=== PATIENT | male | born 1950 | race Caucasian/White ===

== ENCOUNTER 2016-08-14 12:26 | Emergency (ER) | payer OTHER ==
[2016-08-14 12:58] VITALS: BP 123/63
--- NOTE | 2016-08-14 14:26 | UC ---
Throat Pain/Nasal Charlie HPI - HPI Summary HPI Summary: 66 male presents today complaining of runny nose, dry cough, and congestion that began Tuesday08/09/16. Patient states his symptoms have been coming and going over the past week. He was feeling good around /Tuesday and was able to go to the gym to work out however his symptoms have returned. Patient reports he has been using Nyquil at bedtime and during the day as well as ibuprofen when he has headaches. Both have seemed to give him some relief. He believes his cough gets worse around the evening time. No production. Feels his upper chest is congested. His headaches are intermittent and do not last long. He has not had any recent travel or prolonged bed rest. No PMHx. Admits to ears feeling full. He has experienced fever/chills on and off. He did not take his temperature but states he had cold sweats. Has not had any since. Denies sinus pressure, difficulty breathing, chest pain, nausea, vomiting, abdominal pain, edema and hemoptysis. - History of Current Complaint Chief Complaint: UCRespiratory Stated Complaint: COUGH CONGESTION Time Seen by Provider: 08/14/16 14:07 Hx Obtained From: Patient Onset/Duration: Sudden Onset, Lasting Days Severity: Mild Pain Intensity: 0 Pain Scale Used: 0-10 Numeric Cough: Nonproductive Associated Signs & Symptoms: Positive: Nasal Discharge, Fever - Allergies/Home Medications Allergies/Adverse Reactions: Allergies Allergy/AdvReac Type Severity Reaction Status Date / Time No Known Allergies Allergy Verified 08/14/16 12:51 Home Medications: Home Medications Cholecalciferol [Vitamin D] 08/14/16 [History] Coenzyme Q10 (Ubidecarenone) [Co-Enzyme Q10] 08/14/16 [History] Ferrous Sulfate [Iron (Ferrous Sulfate)] 08/14/16 [History Confirmed 08/14/16] [place]-3 Fatty Acids [Fish Oil] 08/14/16 [History] [id number] [Nyquil Severe Cold/Flu 5-6.25-10-325 mg/15Ml] 08/14/16 [History] PMH/Surg Hx/FS Hx/Imm Hx Endocrine History Of: Denies: Diabetes, Thyroid Disease, Hyperthyroidism, Hypothyroidism, Dyslipidemia Cardiovascular History Of: Denies: Cardiac Disorders, Hypertension, Pacemaker/ICD, Myocardial Infarction , Congestive Heart Failure, Atrial Fibrillation, Deep Vein Thrombosis, Bleeding Disorders Respiratory History Of: Denies: COPD, Asthma, Bronchitis, Pneumonia, Pulmonary Embolism GI/ History Of: Denies: Gastroesophageal Reflux, Ulcer, Gastrointestinal Bleed, Gall Bladder Disease, Kidney Stones, Diverticulitis, Renal Disease, Urosepsis Neurological History Of: Denies: TIA, CVA, Dementia, Seizures, Migraine Psychological History Of: Denies: Anxiety, Depression, Bipolar Disorder, Schizophrenia, Post Traumatic Stress Disorder Cancer History Of: Denies: Lung Cancer, Colorectal Cancer, Breast Cancer, Prostate Cancer, Cervical Cancer Other History Of: Negative For: HIV, Hepatitis B, Hepatitis C, Anticoagulant Therapy - Surgical History Surgical History: Yes Surgery Procedure, Year, and Place: 07/1971 - FX'D [facility]. 1999- ARTHROSCOPIC - [facility]. PINIDAL CYST REMOVED - Family History Known Family History: Positive: None - Social History Alcohol Use: Occasionally Alcohol Amount: 1-3 weekly Substance Use Type: None Smoking Status (MU): Never Smoked Tobacco - Immunization History Most Recent Influenza Vaccination: NO, states it made him sick last time he got it Review of Systems Constitutional: Fever, Chills, Fatigue Skin: Negative Eyes: Negative ENT: Nasal Discharge Respiratory: Cough Cardiovascular: Negative Gastrointestinal: Negative Motor: Negative Neurovascular: Negative Musculoskeletal: Negative Neurological: Negative Psychological: Negative All Other Systems Reviewed And Are Negative: Yes Physical Exam Triage Information Reviewed: Yes Appearance: Well-Appearing, No Pain Distress, Well-Nourished Vital Signs: Initial Vital Signs Temp 98.3 F 08/14/16 12:54 Pulse 54 08/14/16 12:54 Resp 16 08/14/16 12:54 BP 123/63 08/14/16 12:54 Pulse Ox 100 08/14/16 12:54 Vital Signs Reviewed: Yes Eyes: Positive: Conjunctiva Clear ENT: Positive: Hearing grossly normal, Pharynx normal - post-nasal drip noted, Nasal congestion, Nasal drainage, TMs normal - bilateral fluid build up/mild effusions. Negative: TM red, Tonsillar swelling, Tonsillar exudate Dental Exam: Normal Neck: Positive: Supple, Nontender, No Lymphadenopathy Respiratory: Positive: Chest non-tender, Lungs clear, Normal breath sounds, No respiratory distress Cardiovascular: Positive: RRR, No Murmur, Pulses Normal, Brisk Capillary Refill Abdominal Exam: Normal Musculoskeletal Exam: Normal Musculoskeletal: Positive: No Edema Neurological Exam: Normal Psychological Exam: Normal Skin Exam: Normal Throat Pain/Nasal Course/Dx - Course Course Of Treatment: patient was educated about viral illness versus bacterial. told to give it 7 more days to see if symptoms improve. if they do not to return and an antibiotic may tried at that time or if symptoms worsen. OTC symptomatic measures and flonase prescribed. chest x-ray duoneb not needed at this time due to history and PE findings. - Differential Dx/Diagnosis Differential Diagnosis/HQI/PQRI: Influenza, Laryngitis, Pharyngitis, Sinusitis, URI Provider Diagnoses: rhinosinusits, upper respiratory infection Discharge - Discharge Plan Condition: Stable Disposition: HOME Prescriptions: Fluticasone NASAL SPRAY 50MCG* [Flonase NASAL SPRAY 50MCG*] 2 spray BOTH NARES DAILY #1 btl Patient Education Materials: Rhinosinusitis (ED), Upper Respiratory Infection ( ED) Referrals: Nirali Johnson MD [Primary Care Provider] - Additional Instructions: Use prescribed Flonase nasal spray daily to help with runny nose/congestion for next couple of days. You may also try Saline Sprays OTC to use for nasal congestion and to moisturize your airway. Take Zicam and Mucinex OTC during the day while symptoms persist. Hot showers and humidified air may also help. You may continue using nyquil and ibuprofen at night for decongestion, headache, fever/chills.
== END 2016-08-14 14:30 | disposition home or self-care (01) ==
LOC: UCEAST 12:26
DX: J32.9 Chronic sinusitis, unspecified (principal); J06.9 Acute upper respiratory infection, unspecified
CPT/HCPCS: 99212; G0463

== ENCOUNTER 2016-08-17 16:07 | Emergency (ER) | payer OTHER ==
[2016-08-17 16:53] VITALS: BP 143/82
[2016-08-17] MEDS ORDERED: Albuterol 2.5 MG/3 ML NEB.SOL* (0.083%) INH ONE (17:16)
--- NOTE | 2016-08-17 17:27 | UC ---
Respiratory Complaint HPI - HPI Summary HPI Summary: Started getting sick 8 days ago with chills, aches, congestion, and cough. Was seen in urgent care 08/14/16, dx viral infection. Thought he was doing well, then felt suddenly worse today with violent coughing fits, pain in chest, and headaches. Denies new fever or notable wheezing. - History of Current Complaint Chief Complaint: UCRespiratory Stated Complaint: COUGH Time Seen by Provider: 08/17/16 17:09 Hx Obtained From: Patient Onset/Duration: Gradual Onset, Lasting Days Timing: Constant Severity Initially: Moderate Severity Currently: Moderate Character: Cough: Nonproductive Aggravating Factors: Deep Breaths Alleviating Factors: Upright Position Associated Signs And Symptoms: Positive: Chills - resolved. Negative: Fever - Allergies/Home Medications Allergies/Adverse Reactions: Allergies Allergy/AdvReac Type Severity Reaction Status Date / Time No Known Allergies Allergy Verified 08/14/16 12:51 Home Medications: Home Medications Ibuprofen [Advil] 600 mg PO 08/17/16 [History] Pseudoephedrine-Guaifenesin [Mucinex D 60-600 mg] 1 tab PO 08/17/16 [History] PMH/Surg Hx/FS Hx/Imm Hx Endocrine History Of: Denies: Diabetes, Thyroid Disease, Hyperthyroidism, Hypothyroidism, Dyslipidemia Cardiovascular History Of: Denies: Cardiac Disorders, Hypertension, Pacemaker/ICD, Myocardial Infarction , Congestive Heart Failure, Atrial Fibrillation, Deep Vein Thrombosis, Bleeding Disorders Respiratory History Of: Denies: COPD, Asthma, Bronchitis, Pneumonia, Pulmonary Embolism GI/ History Of: Denies: Gastroesophageal Reflux, Ulcer, Gastrointestinal Bleed, Gall Bladder Disease, Kidney Stones, Diverticulitis, Renal Disease, Urosepsis Neurological History Of: Denies: TIA, CVA, Dementia, Seizures, Migraine Psychological History Of: Denies: Anxiety, Depression, Bipolar Disorder, Schizophrenia, Post Traumatic Stress Disorder Cancer History Of: Denies: Lung Cancer, Colorectal Cancer, Breast Cancer, Prostate Cancer, Cervical Cancer Other History Of: Negative For: HIV, Hepatitis B, Hepatitis C, Anticoagulant Therapy - Surgical History Surgical History: Yes Surgery Procedure, Year, and Place: 07/1971 - FX'D [facility]. 1999- ARTHROSCOPIC - [facility]. PINIDAL CYST REMOVED - Family History Known Family History: Positive: None - Social History Occupation: Employed Full-time Alcohol Use: Weekly Alcohol Amount: 1-3 weekly Substance Use Type: None Smoking Status (MU): Never Smoked Tobacco - Immunization History Most Recent Influenza Vaccination: NO, states it made him sick last time he got it Review of Systems Constitutional: Chills - resolved, Fatigue Skin: Negative Eyes: Negative ENT: Nasal Discharge Respiratory: Cough Cardiovascular: Negative Gastrointestinal: Negative Genitourinary: Negative Motor: Negative Neurovascular: Negative Musculoskeletal: Negative Neurological: Negative Psychological: Negative All Other Systems Reviewed And Are Negative: Yes Physical Exam Triage Information Reviewed: Yes Appearance: Well-Appearing, No Pain Distress, Well-Nourished Vital Signs: Initial Vital Signs Temp 97.9 F 08/17/16 16:50 Pulse 58 08/17/16 16:50 Resp 18 08/17/16 16:50 BP 143/82 08/17/16 16:50 Pulse Ox 98 08/17/16 16:50 Vital Signs Reviewed: Yes Eye Exam: Normal Eyes: Positive: Conjunctiva Clear ENT: Positive: Normal ENT inspection, Hearing grossly normal, Pharynx normal, Nasal congestion Dental Exam: Normal Neck exam: Normal Neck: Positive: Supple, Nontender, No Lymphadenopathy Respiratory: Positive: No respiratory distress, Crackles - R lung, Other: - harsh cough with deep insp Cardiovascular Exam: Normal Cardiovascular: Positive: RRR, No Murmur Musculoskeletal Exam: Normal Neurological Exam: Normal Psychological Exam: Normal Skin Exam: Normal UC Diagnostic Evaluation - Laboratory O2 Sat by Pulse Oximetry: 98 Respiratory Course/Dx - Differential Dx/Diagnosis Provider Diagnoses: post-viral cough. bronchospasm Discharge - Discharge Plan Condition: Stable Disposition: HOME Patient Education Materials: Bronchospasm (ED) Referrals: Nirali Johnson MD [Primary Care Provider] - Additional Instructions: POST-VIRAL COUGH: A very common cause of persistent cough is called "post-viral cough syndrome." During a viral infection, the virus can irritate your bronchial tubes. Then even after the infection is over, you may continue to cough. Your cough is left over from your recent viral infection. You do not show evidence of a continuing viral infection,bronchitis or pneumonia. You do not need antibiotics at this time. It may be helpful to use inhaled cool mist, throat lozenges, cough medication or bronchial inhalers to open up your bronchial tubes. We expect you will be improved in a week or two. Please get back to us if you have fever, chest pain, colored sputum, blood in the sputum, wheezing or shortness of breath. INHALED BRONCHODILATORS: You have received a prescription for an inhaled bronchodilator -- a medication which stimulates the airways in the lung to dilate. This improves the flow of air in asthma, bronchitis, and emphysema. These medicines have some similarity to adrenaline, and can cause similar side effects: shakiness, racing heart, and a sense of nervousness. These side effects can be reduced with the use of a spacer and usually decrease with time. Use 1-2 puffs up to every 4 hours as needed for wheezing or tightness in your chest. It may be helpful to use preventatively, such as before bedtime or before going outside into cold air. IF YOU FIND THAT YOU ARE CONSISTENTLY NEEDING THE INHALER MORE THAN 6 TIMES PER DAY, PLEASE CALL OR RETURN FOR FURTHER EVALUATION. COUGH-SUPPRESSANT & EXPECTORANT MEDICATION FOR SLEEPING ONLY: You are to use a cough medication as needed for relief of NIGHTTIME/ BEDTIME symptoms. This medicine is a combination of an expectorant (to make the mucous thinner and more easily "coughed up") and a cough suppressant (to reduce the frequency of coughing). The cough-suppressant medicine is related to narcotics. You may experience mild nausea and sleepiness. Some patients who are very sensitive to narcotics may have stomach pain from this medicine. Taking the medicine with food reduces these side effects. Do not drive or work with machinery until you know how this medicine affects you. The expectorant should have no side effects. Call your doctor if you develop shortness of breath, hives, rash, itching, lightheadedness, or severe nausea and vomiting. TESSALON: You have received a prescription for Tessalon Perles (benzonatate). This is a non-narcotic medicine for relief of cough. It usually works in about 15- 20 minutes and lasts around four hours. When they work, they are usually helpful with a lingering cough at the end of an illness. If you do not find them helpful now, wait several days and try again, as they may help your cough later on. Tessalon Perles should be swallowed. They should not be chewed or dissolved in the mouth (this can produce temporary numbing of the mouth and choking can occur). If you develop any adverse effects such as wheezing, shortness of breath, hives, rash, itching, or lightheadedness, please return at once. CORTICOSTEROID MEDICATION: You have been given a medicine of the cortisone class. This medication is used to control inflammation or allergy. It is usually only given for a short period of time, until the acute process subsides. There are usually no side effects from short-term use of cortisone-like medications. Some persons feel an increased sense of well-being and are not sleepy at bedtime. Long-term use of cortisone medications is best avoided, unless required for a severe condition. If your condition does not remit, or relapses after the course of corticosteroid medication, you should consult your physician. Contact the physician if you develop lightheadedness, black or tarry stools , swelling of the legs, or significant rapid change in weight.
--- NOTE | 2016-08-17 17:55 | RAD ---
HISTORY: Cough and malaise COMPARISONS: None VIEWS: 2: Frontal dual-energy and lateral views of the chest. FINDINGS: CARDIOMEDIASTINAL SILHOUETTE: The cardiomediastinal silhouette is normal. ELIUD: The eliud are normal. PLEURA: The costophrenic angles are sharp. No pleural abnormalities are noted. LUNG PARENCHYMA: The lungs are clear. ABDOMEN: The upper abdomen is clear. There is no subphrenic gas. BONES AND SOFT TISSUES: No bone or soft tissue abnormalities are noted. OTHER: None. IMPRESSION: NO ACTIVE CARDIOPULMONARY DISEASE.
== END 2016-08-17 18:21 | disposition home or self-care (01) ==
LOC: UCEAST 16:07
DX: J98.01 Acute bronchospasm (principal); R05 Cough
CPT/HCPCS: 71020; 99212; G0463

== ENCOUNTER 2017-03-05 11:15 | Emergency (ER) | payer OTHER ==
--- NOTE | 2017-03-05 11:18 | UC ---
Cardiac HPI - HPI Summary HPI Summary: 67 YEAR OLD MALE PRESENTS WITH COMPLAINS OF LEFT SIDED CHEST PAIN AT REST. - History of Current Complaint Stated Complaint: CHEST PAIN Time Seen by Provider: 03/05/17 11:18 Hx Obtained From: Patient Onset/Duration: Lasting Days Timing: Intermittent Episodes Lasting: Initial Severity: Severe Current Severity: Severe Chest Pain Location: Lower Sternal Character: Dull/Aching, Pressure/Squeezing - Allergy/Home Medications Allergies/Adverse Reactions: Allergies Allergy/AdvReac Type Severity Reaction Status Date / Time No Known Allergies Allergy Verified 03/05/17 11:20 PMH/Surg Hx/FS Hx/Imm Hx Previously Healthy: Yes Other History Of: Negative For: HIV, Hepatitis B, Hepatitis C, Anticoagulant Therapy - Surgical History Surgical History: Yes Surgery Procedure, Year, and Place: 07/1971 - FX'D [facility]. 1999- ARTHROSCOPIC - [facility]. PINIDAL CYST REMOVED - Family History Known Family History: Positive: None - Social History Alcohol Use: Weekly Alcohol Amount: 1-3 weekly Substance Use Type: None Smoking Status (MU): Never Smoked Tobacco - Immunization History Most Recent Influenza Vaccination: NO, states it made him sick last time he got it Review of Systems Constitutional: Negative Skin: Negative Eyes: Negative ENT: Negative Respiratory: Negative Cardiovascular: Chest Pain Gastrointestinal: Negative Genitourinary: Negative Motor: Negative Neurovascular: Negative Musculoskeletal: Negative Neurological: Negative Psychological: Negative All Other Systems Reviewed And Are Negative: Yes Physical Exam Triage Information Reviewed: Yes Eye Exam: Normal ENT Exam: Normal Dental Exam: Normal Neck exam: Normal Neck: Positive: 1 Respiratory Exam: Normal Cardiovascular Exam: Normal Abdominal Exam: Normal Musculoskeletal Exam: Normal Neurological Exam: Normal Psychological Exam: Normal Skin Exam: Normal - Clinical Impression Provider Diagnoses: CHEST PAIN Discharge - Discharge Plan Condition: Guarded Disposition: AGAINST MEDICAL ADVICE Patient Education Materials: Chest Pain (ED) Referrals: Nirali Johnson MD [Primary Care Provider] - Additional Instructions: PLEASE GO TO ED TO RULE OUT [place] REFUSED.
[2017-03-05] MEDS ORDERED: Aspirin Low Dose CHEW TAB* 81 MG PO ONE (11:22)
[2017-03-05 11:31] VITALS: BP 161/80
== END 2017-03-05 11:34 | disposition left against medical advice (07) ==
LOC: UCEAST 11:15
DX: R07.9 Chest pain, unspecified (principal)
CPT/HCPCS: 93005; 99212; A9270-GY; G0463

== ENCOUNTER → 2017-03-05 11:57 | Emergency (ER) | payer OTHER ==
[~2017-03-05 11:57] MED LIST: Diazepam TAB(*) 5 MG PO ONE; Ketorolac INJ* 30 MG/ML 1 ML VIAL IV PUSH ONE; NS 0.9% 1000 ML* 1,000 ML IV ONE
[2017-03-05 13:15] LABS: Hematocrit 42 % (42-52); Hemoglobin 14.2 g/dl (14.0-18.0); Mean Corpuscular HGB Conc 34 g/dl (31-36); Mean Corpuscular Hemoglobin 30 pg (27-31); Mean Corpuscular Volume 87 fL (80-94); Mean Platelet Volume 8 um3 (7.4-10.4); Red Blood Count 4.78 10^6/ul (4.0-5.4); Red Cell Distribution Width 14 % (10.5-15); White Blood Count 5.5 10^3/ul (3.5-10.8)
[2017-03-05 13:31] LABS: Albumin 4.5 g/dL (3.2-5.2); BUN/Creatinine Ratio 20.2 (8-20); Calcium 9.5 mg/dL (8.6-10.3); EGFR African American 102.9 (>60); Globulin 2.2 g/dL (2-4); Potassium 4.2 mmol/L (3.5-5.0); Total Bilirubin 0.4 mg/dL (0.2-1.0); Total Protein 6.7 g/dL (6.4-8.9)
--- NOTE | 2017-03-05 14:28 | RAD ---
HISTORY: Left anterior chest pain COMPARISONS: August 17, 2016 VIEWS:1: Single frontal portable view of the chest at 2:10 PM FINDINGS: LINES AND TUBES: None. CARDIOMEDIASTINAL SILHOUETTE: The cardiomediastinal silhouette is normal for portable technique. PLEURA: The costophrenic angles are sharp. No pleural abnormalities are noted. LUNG PARENCHYMA: The lungs are clear. ABDOMEN: The upper abdomen is clear. There is no subphrenic gas. BONES AND SOFT TISSUES: No bone or soft tissue abnormalities are noted. IMPRESSION: NO ACTIVE CARDIOPULMONARY DISEASE.
[2017-03-05 15:59] VITALS: BP 124/64
--- NOTE | 2017-03-12 22:04 | ED ---
Audrey Sprague SooYoung, scribed for Estevan Eng MD on 03/05/17 at 1225 . HPI Chest Pain - HPI Summary HPI Summary: A 67 y/o M [place] [facility] [place] to ED with c/o intermittent CP onset four days ago, and worsening last night. Radiates mildly to shoulder blades. Rates pain as 2 out of 10 at bedside. Denies nausea, SOB, diaphoresis. Aggravating factors: moving arms, change in position - supine to sitting. Pt works out regularly, worked out the day of onset of sx, was doing heavy lifting two days ago. Went to gym yesterday and did cardio. He states feeling well otherwise. Took Ibuprofen, and was given baby aspirin at [facility] [place], neither provided relief. Pert PMHx: low BP. FHx: cardi dz, mother. PCP is Dr. Johnson. - History of Current Complaint Chief Complaint: EDChestPainROMI Time Seen by Provider: 03/05/17 12:14 Hx Obtained From: Patient, Family/Security Manager Onset/Duration: Still Present Timing: Intermittent Current Severity: Mild Pain Intensity: 2 Pain Scale Used: 0-10 Numeric - at bedside Chest Pain Location: Left Anterior Chest Pain Radiates: Yes Chest Pain Radiates To:: Shoulder Aggravating Factor(s): Position - arm movements; supine to sitting Associated Signs and Symptoms: Negative: Shortness of Breath, Diaphoresis, Nausea - Allergy/Home Medications Allergies/Adverse Reactions: Allergies Allergy/AdvReac Type Severity Reaction Status Date / Time No Known Allergies Allergy Verified 03/05/17 11:20 PMH/Surg Hx/FS Hx/Imm Hx Previously Healthy: Yes Endocrine/Hematology History: Denies: Hx Anticoagulant Therapy, Hx Diabetes, Hx Thyroid Disease Cardiovascular History: Denies: Hx Congestive Heart Failure, Hx Deep Vein Thrombosis, Hx Hypertension , Hx Myocardial Infarction, Hx Pacemaker/ICD Respiratory History: Denies: Hx Asthma, Hx Chronic Obstructive Pulmonary Disease (COPD), Hx Lung Cancer, Hx Pneumonia, Hx Pulmonary Embolism GI History: Denies: Hx Gall Bladder Disease, Hx Gastrointestinal Bleed, Hx Ulcer, Hx Urosepsis History: Denies: Hx Kidney Stones, Hx Renal Disease Musculoskeletal History: Denies: Hx Rheumatoid Arthritis, Hx Osteoporosis Sensory History: Denies: Hx Hearing Aid Neurological History: Denies: Hx Dementia, Hx Migraine, Hx Seizures, Hx Transient Ischemic Attacks (TIA) Psychiatric History: Denies: Hx Anxiety, Hx Depression, Hx Panic Disorder, Hx Schizophrenia, Hx Bipolar Disorder - Surgical History Surgery Procedure, Year, and Place: 07/1971 - FX'D Lt [facility]. 1999- ARTHROSCOPIC - [facility]. PINIDAL CYST REMOVED Infectious Disease History: Reports: Hx Shingles Denies: Hx Clostridium Difficile, Hx Hepatitis, Hx Human Immunodeficiency Virus (HIV), Hx of Known/Suspected MRSA, Hx Tuberculosis, Hx Known/Suspected VRE , Hx Known/Suspected VRSA, History Other Infectious Disease, Traveled Outside the [place] in Last 30 Days - Family History Known Family History: Positive: Cardiac Disease - mother - Social History Occupation: Employed Full-time Lives: With Family Alcohol Use: Weekly Alcohol Amount: 1-3 weekly Hx Substance Use: No Substance Use Type: Reports: None Hx Tobacco Use: No Smoking Status (MU): Never Smoked Tobacco Review of Systems Negative: Fever, Chills Negative: Erythema Negative: Sore Throat Positive: Chest Pain Negative: Shortness Of Breath, Cough Negative: Abdominal Pain, Vomiting, Nausea Negative: dysuria, flank pain Negative: Myalgia, Edema Negative: Rash Neurological: Other - neg: dizziness All Other Systems Reviewed And Are Negative: Yes Physical Exam - Summary Physical Exam Summary: Constitutional: Well-developed, Well-nourished, Alert. (-) Distressed Skin: Warm, Dry HENT: Normocephalic; Atraumatic Eyes: Conjunctiva normal Neck: Musculoskeletal ROM normal neck. (-) JVD, (-) Stridor, (-) Tracheal deviation Cardio: Rhythm regular, rate normal, Heart sounds normal; Intact distal pulses; The pedal pulses are 2+ and symmetric. Radial pulses are 2+ and symmetric. (-) Murmur. Pulmonary/Chest wall: Effort normal. (-) Respiratory distress, (-) Wheezes, (-) Rales Abd: Soft, (-) Tenderness, (-) Distension, (-) Guarding, (-) Rebound Musculoskeletal: (-) Edema. CP brought on and completely reproducible with shoulder adduction and reaching his hand, pain at the L 4th costochondral junction. No chest tenderness to palpation. Lymph: (-) Cervical adenopathy Neuro: Alert, Oriented x3 Psych: Mood and affect Normal Triage Information Reviewed: Yes Vital Signs On Initial Exam: Initial Vitals Temp Pulse Resp BP Pulse Ox 99.1 F 65 16 164/72 100 03/05/17 12:02 03/05/17 12:02 03/05/17 12:02 03/05/17 12:02 03/05/17 12:02 Vital Signs Reviewed: Yes Diagnostics - Vital Signs Vital Signs Temp Pulse Resp BP Pulse Ox 03/05/17 12:02 99.1 F 65 16 164/72 100 - Laboratory Result Diagrams: 03/05/17 13:04 03/05/17 13:04 Lab Statement: Any lab studies that have been ordered have been reviewed, and results considered in the medical decision making process. - Radiology CXR Xray Interpretation: No Acute Changes - IMPRESSION: No active cardiopulmonary dz. ED physician has reviewed this radiology report and agrees. Radiology Interpretation Completed By: Radiologist - EKG 1305 Cardiac Rate: NL - 62 bpm EKG Rhythm: Sinus Rhythm ST Segment: Normal - no STEMI Re-Evaluation - Re-Evaluation 1 Re-Evaluation Time: 14:44 Change: Improved Comment: Discussing results with pt. Pt voiced understanding. Pt is feeling better. Chest Pain Course/Dx - Course Course Of Treatment: Pt is a 67 y/o M [place] [facility] [place] presents to ED with c/o intermittent CP onset four days ago, and worsening last night. Radiates mildly to shoulder blades. Rates pain as 2 out of 10 at bedside. Denies nausea, SOB, diaphoresis. Aggravating factors: moving arms, change in position - supine to sitting. Pt works out regularly, worked out the day of onset of sx, was doing heavy lifting two days ago. Went to gym yesterday and did cardio. He states feeling well otherwise. Took Ibuprofen, and was given baby aspirin [place] [facility] [place] provided relief. Pert PMHx: low BP. FHx: cardic dz, mother. PCP is Dr. Johnson. Pt given Valium, Toradol and fluids in ED. Bloodwork results are without significant abnormalities: D-dimer is negative, trop is negative. No EKG findings for pericarditis. All sx are reproducible with movement. Pre-test and post-test probability for muscular etiology was very high. CXR shows no active cardiopulmonary dz. Hypertensive BP reading (164/72); patient referred to PCP within 1 day - 4 weeks for follow-up. Will D/C home with Flexeril, Naproxen to follow up with PCP. - Diagnoses Provider Diagnoses: Elevated blood pressure reading without diagnosis of hypertension, reproducible chest pain Discharge - Discharge Plan Condition: Stable Disposition: HOME Prescriptions: Cyclobenzaprine TAB* [Flexeril 10 MG TAB*] 10 mg PO BID PRN #10 tab PRN Reason: Pain - Moderate To Severe Naproxen TAB* [Naprosyn 250 mg TAB*] 500 mg PO Q8H PRN #30 tab PRN Reason: Pain Scale 6-10 Patient Education Materials: Naproxen (By mouth), Cyclobenzaprine (By mouth), Noncardiac Chest Pain (ED) Referrals: Nirali Johnson MD [Primary Care Provider] - 3 Days () Additional Instructions: Follow up with your primary care provider in 2-3 days. Your blood pressure reading today was 164/72, which is HYPERTENSIVE. Follow-up with your primary care provider within 4 weeks for blood pressure readings and further evaluation. Return to the emergency department for changing or worsening or persistent symptoms. The documentation as recorded by the Audrey bruno SooYoung accurately reflects the service I personally performed and the decisions made by , Estevan Eng MD.
== END | disposition home or self-care (01) ==
LOC: ED 11:57
DX: R07.9 Chest pain, unspecified (principal); R03.0 Elevated blood-pressure reading, without diagnosis of hypertension
CPT/HCPCS: 36415; 71010; 80053; 84484; 85027; 85379; 93005; 96374; 99283; A9270-GY; J1885

== ENCOUNTER 2017-03-09 19:36 | Emergency (ER) | payer OTHER ==
[2017-03-09 21:56] LABS: Hematocrit 42 % (42-52); Hemoglobin 14.3 g/dl (14.0-18.0); Mean Corpuscular HGB Conc 34 g/dl (31-36); Mean Corpuscular Hemoglobin 30 pg (27-31); Mean Corpuscular Volume 88 fL (80-94); Mean Platelet Volume 8 um3 (7.4-10.4); Red Blood Count 4.78 10^6/ul (4.0-5.4); Red Cell Distribution Width 14 % (10.5-15); White Blood Count 6.2 10^3/ul (3.5-10.8)
--- NOTE | 2017-03-09 22:11 | RAD ---
Indication: Chest pain. 2 views of the chest including dual energy PA views are reviewed. No mediastinal shift is noted. Heart is of normal size and configuration. Lungs are clear. No changes noted since the . IMPRESSION: No active cardiopulmonary disease is noted.
[2017-03-09 22:12] LABS: Albumin 4.4 g/dL (3.2-5.2); BUN/Creatinine Ratio 27.2 (8-20); Calcium 9.4 mg/dL (8.6-10.3); EGFR African American 92.6 (>60); Globulin 2.4 g/dL (2-4); Magnesium 2.3 mg/dL (1.9-2.7); Total Bilirubin 0.3 mg/dL (0.2-1.0); Total Protein 6.8 g/dL (6.4-8.9)
[2017-03-09] MEDS ORDERED: oxyCODONE/Acetamin 5/325 MG* TAB PO ONE (22:53)
[2017-03-09] MEDS ORDERED: Ketorolac INJ* 60 MG/2 ML VIAL IM ONE (22:53)
[2017-03-09] MEDS ORDERED: NS 0.9% 1000 ML* 1,000 ML IV ONE (23:58)
[2017-03-10] MEDS ORDERED: Iohexol 350* (CONTRAST) 500 ML MDV IV ONE (01:08)
[2017-03-10 02:52] VITALS: BP 118/69
--- NOTE | 2017-03-10 04:54 | ED ---
Alexandro Sprague Rebecca, scribed for JenniferkimiJose Alfredo on 03/09/17 at 2253 . HPI Chest Pain - HPI Summary HPI Summary: Pt is a 67 y/o M who presents to ED c/o CP. Pain began 8 days ago and has been intermittent since onset, worse today at 1830 after cough. Pain is in the left anterior region and is currently mild, ranked 3/10. Sx aggravated by palpation and cough, alleviated by Naproxen and muscle relaxants. Denies N/V, dizziness. Pt was seen at [facility] 4 days ago and then presented to [facility] ED with Dx of musculoskeletal pain. Current pain is the same as it was previously but worse. Has never had a stress test done. - History of Current Complaint Chief Complaint: EDChestWallPain Time Seen by Provider: 03/09/17 22:41 Hx Obtained From: Patient Onset/Duration: Started Days Ago - 8 days, Still Present, Worse Since - 1830 Timing: Intermittent Current Severity: Mild Pain Intensity: 3 Pain Scale Used: 0-10 Numeric Chest Pain Location: Left Anterior Aggravating Factor(s): Other: - Cough, palpation Alleviating Factor(s): Medication - Naproxen and muscle relaxant Associated Signs and Symptoms: Positive: Negative. Negative: Dizziness, Nausea , Vomiting - Allergy/Home Medications Allergies/Adverse Reactions: Allergies Allergy/AdvReac Type Severity Reaction Status Date / Time No Known Allergies Allergy Verified 03/09/17 19:58 PMH/Surg Hx/FS Hx/Imm Hx Endocrine/Hematology History: Denies: Hx Anticoagulant Therapy, Hx Diabetes, Hx Thyroid Disease Cardiovascular History: Denies: Hx Congestive Heart Failure, Hx Deep Vein Thrombosis, Hx Hypertension , Hx Myocardial Infarction, Hx Pacemaker/ICD Respiratory History: Denies: Hx Asthma, Hx Chronic Obstructive Pulmonary Disease (COPD), Hx Lung Cancer, Hx Pneumonia, Hx Pulmonary Embolism GI History: Denies: Hx Gall Bladder Disease, Hx Gastrointestinal Bleed, Hx Ulcer, Hx Urosepsis History: Denies: Hx Kidney Stones, Hx Renal Disease Musculoskeletal History: Denies: Hx Rheumatoid Arthritis, Hx Osteoporosis Sensory History: Denies: Hx Hearing Aid Neurological History: Denies: Hx Dementia, Hx Migraine, Hx Seizures, Hx Transient Ischemic Attacks (TIA) Psychiatric History: Denies: Hx Anxiety, Hx Depression, Hx Panic Disorder, Hx Schizophrenia, Hx Bipolar Disorder - Surgical History Surgery Procedure, Year, and Place: 07/1971 - FX'D Lt [facility]. 1999- ARTHROSCOPIC - [facility]. PINIDAL CYST REMOVED Infectious Disease History: No Infectious Disease History: Reports: Hx Shingles Denies: Hx Clostridium Difficile, Hx Hepatitis, Hx Human Immunodeficiency Virus (HIV), Hx of Known/Suspected MRSA, Hx Tuberculosis, Hx Known/Suspected VRE , Hx Known/Suspected VRSA, History Other Infectious Disease, Traveled Outside the [place] in Last 30 Days - Family History Known Family History: Negative: Cardiac Disease, Hypertension, Diabetes - Social History Alcohol Use: Weekly Alcohol Amount: 1-3 weekly Substance Use Type: Reports: None Hx Tobacco Use: No Smoking Status (MU): Never Smoked Tobacco Review of Systems Positive: Chest Pain Negative: Vomiting, Nausea Neurological: Other - NEGATIVE: dizziness All Other Systems Reviewed And Are Negative: Yes Physical Exam - Summary Physical Exam Summary: Appearance: Well appearing, no pain distress Skin: warm, dry, reflects adequate perfusion Head/face: normal Eyes: EOMI, QUANG ENT: normal Neck: supple, nontender Respiratory: CTA, breath sounds present Cardiovascular: RRR, pulses symmetrical Abdomen: nontender, soft Bowel: present Musculoskeletal: strength/ROM intact, tenderness over the L chest Neuro: normal, sensory motor intact, A&Ox3 Triage Information Reviewed: Yes Vital Signs On Initial Exam: Initial Vitals Temp Pulse Resp BP Pulse Ox 96.7 F 59 14 121/68 98 03/09/17 19:59 03/09/17 19:59 03/09/17 19:59 03/09/17 19:59 03/09/17 19:59 Vital Signs Reviewed: Yes Diagnostics - Vital Signs Vital Signs Temp Pulse Resp BP Pulse Ox 03/09/17 21:28 58 16 112/64 97 03/09/17 19:59 96.7 F 59 14 121/68 98 - Laboratory Lab Results: Lab Results 03/09/17 03/09/17 03/09/17 Range/Units 21:35 21:35 21:35 WBC 6.2 (3.5-10.8) 10^3/ul RBC 4.78 (4.0-5.4) 10^6/ul Hgb 14.3 (14.0-18.0) g/dl Hct 42 (42-52) % MCV 88 (80-94) fL MCH 30 (27-31) pg MCHC 34 (31-36) g/dl RDW 14 (10.5-15) % Plt Count 204 (150-450) 10^3/ul MPV 8 (7.4-10.4) um3 Neut % (Auto) 63.8 (38-83) % Lymph % (Auto) 18.3 L (25-47) % [place] % (Auto) 10.2 H (1-9) % Eos % (Auto) 7.0 H (0-6) % Baso % (Auto) 0.7 (0-2) % Absolute Neuts (auto) 4.0 (1.5-7.7) 10^3/ul Absolute Lymphs (auto) 1.1 (1.0-4.8) 10^3/ul Absolute Monos (auto) 0.6 (0-0.8) 10^3/ul Absolute Eos (auto) 0.4 (0-0.6) 10^3/ul Absolute Basos (auto) 0 (0-0.2) 10^3/ul Absolute Nucleated RBC 0 10^3/ul Nucleated RBC % 0 INR (Anticoag Therapy) (0.89-1.11) APTT (26.0-36.3) seconds D-Dimer, Quantitative (Less Than 230) ng/mL Sodium 137 (133-145) mmol/L Potassium 4.0 (3.5-5.0) mmol/L Chloride 102 (101-111) mmol/L Carbon Dioxide 31 (22-32) mmol/L Anion Gap 4 (2-11) mmol/L BUN 28 H (6-24) mg/dL Creatinine 1.03 (0.67-1.17) mg/dL Est GFR ( Amer) 92.6 (>60) Est GFR (Non-Af Amer) 72.0 (>60) BUN/Creatinine Ratio 27.2 H (8-20) Glucose 94 (70-100) mg/dL Lactic Acid 0.8 (0.5-2.0) mmol/L Calcium 9.4 (8.6-10.3) mg/dL Magnesium 2.3 (1.9-2.7) mg/dL Total Bilirubin 0.30 (0.2-1.0) mg/dL AST 16 (13-39) U/L ALT 9 (7-52) U/L Alkaline Phosphatase 41 (34-104) U/L Troponin I 0.00 (<0.04) ng/mL Total Protein 6.8 (6.4-8.9) g/dL Albumin 4.4 (3.2-5.2) g/dL Globulin 2.4 (2-4) g/dL Albumin/Globulin Ratio 1.8 (1-3) Lipase 23 (11.0-82.0) U/L 03/09/17 Range/Units 21:35 WBC (3.5-10.8) 10^3/ul RBC (4.0-5.4) 10^6/ul Hgb (14.0-18.0) g/dl Hct (42-52) % MCV (80-94) fL MCH (27-31) pg MCHC (31-36) g/dl RDW (10.5-15) % Plt Count (150-450) 10^3/ul MPV (7.4-10.4) um3 Neut % (Auto) (38-83) % Lymph % (Auto) (25-47) % [place] % (Auto) (1-9) % Eos % (Auto) (0-6) % Baso % (Auto) (0-2) % Absolute Neuts (auto) (1.5-7.7) 10^3/ul Absolute Lymphs (auto) (1.0-4.8) 10^3/ul Absolute Monos (auto) (0-0.8) 10^3/ul Absolute Eos (auto) (0-0.6) 10^3/ul Absolute Basos (auto) (0-0.2) 10^3/ul Absolute Nucleated RBC 10^3/ul Nucleated RBC % INR (Anticoag Therapy) 0.92 (0.89-1.11) APTT 38.0 H (26.0-36.3) seconds D-Dimer, Quantitative < 200 (Less Than 230) ng/mL Sodium (133-145) mmol/L Potassium (3.5-5.0) mmol/L Chloride (101-111) mmol/L Carbon Dioxide (22-32) mmol/L Anion Gap (2-11) mmol/L BUN (6-24) mg/dL Creatinine (0.67-1.17) mg/dL Est GFR ( Amer) (>60) Est GFR (Non-Af Amer) (>60) BUN/Creatinine Ratio (8-20) Glucose (70-100) mg/dL Lactic Acid (0.5-2.0) mmol/L Calcium (8.6-10.3) mg/dL Magnesium (1.9-2.7) mg/dL Total Bilirubin (0.2-1.0) mg/dL AST (13-39) U/L ALT (7-52) U/L Alkaline Phosphatase (34-104) U/L Troponin I (<0.04) ng/mL Total Protein (6.4-8.9) g/dL Albumin (3.2-5.2) g/dL Globulin (2-4) g/dL Albumin/Globulin Ratio (1-3) Lipase (11.0-82.0) U/L Result Diagrams: 03/09/17 21:35 03/09/17 21:35 Lab Statement: Any lab studies that have been ordered have been reviewed, and results considered in the medical decision making process. - Radiology CXR Xray Interpretation: No Acute Changes - No active cardiopulmonary disease is noted. ED physician reviewed this radiology report and agrees. Radiology Interpretation Completed By: Radiologist - CT CTA Chest/abd/pel CT Interpretation: No Acute Changes CT Interpretation Completed By: Radiologist - EKG 1943 Cardiac Rate: Bradycardia - 57 bpm EKG Rhythm: Sinus Bradycardia EKG Interpretation: No acute changes Re-Evaluation - Re-Evaluation First Eval Re-Evaluation Time: 23:39 Comment: Pt continues to experience pain. Chest Pain Course/Dx - Course Assessment/Plan: Pt is a 67 y/o M who presents to ED c/o intermittent left anterior CP for 8 days, worse today at 1830 after coughing. Pain is currently mild, ranked 3/10. Sx aggravated by palpation and cough, alleviated by Naproxen and muscle relaxants. Denies N/V, dizziness. Pt was seen at [facility] 4 days ago and then presented to [facility] ED with Dx of musculoskeletal pain. Current pain is the same as it was previously but worse. Has never had a stress test done. CXR and CTA abd/pel/chest reveal no acute findings. EKG is sinus bradycardia with no acute changes. In the ED course, pt received Toradol, percocet and fluids. He will be D/C to home with Dx of chest pain and costochondritis, Rx for percocet and a follow up with his PCP. Elevated BP noted and advised to f/u with PCP. - Diagnoses Provider Diagnoses: Chest pain, Costochondritis Discharge - Discharge Plan Condition: Stable Disposition: HOME Prescriptions: oxyCODONE/Acetamin 5/325 MG* [Percocet 5/325 TAB*] 1 tab PO Q8H PRN #12 tab MDD 3 PRN Reason: Pain Patient Education Materials: Chest Pain (ED), Costochondritis (ED) Referrals: Nirali Johnson MD [Primary Care Provider] - 3 Days The documentation as recorded by the Alexandro bruno Rebecca accurately reflects the service I personally performed and the decisions made by Linette castelan Emmanuel.
--- NOTE | 2017-03-10 08:18 | RAD ---
INDICATION: Chest pain radiating to the back. Assess for aortic dissection. COMPARISON: March 09, 2017 chest radiograph and August 08, [address] TECHNIQUE: Multidetector CT images were obtained from the lung apices to the ischial tuberosities with 64 mL Omnipaque [address] angiogram protocol with multiplanar reformation including maximum intensity projection images and 3-D osseous volume rendering of the aorta. CHEST REPORT: Minimal dependent subsegmental atelectasis. Negative for pleural effusion or pneumothorax. Negative for thoracic lymphadenopathy, cardiomegaly, pericardial effusion. Normal diameter thoracic aorta with only minimal calcific plaque at the arch. Negative for dissection of the thoracic aorta. Negative for mediastinal hematoma. Negative for thoracic fractures. At the posterior segment of the LEFT fifth rib there is a 1.8 cm transverse by 1.0 cm AP indeterminate mixed lytic and sclerotic lesion. No additional suspicious focal osseous lesions evident. CHEST IMPRESSION: 1. No evidence for dissection of the thoracic aorta. 2. Solitary mixed lytic and sclerotic osseous lesion involving the posterior segment of the LEFT fifth rib. Bone scan suggested for further assessment. ABDOMEN PELVIS REPORT: Arterial phase of enhancement limits assessment of the abdominal viscera. No suspicious finding of the liver, gallbladder, pancreas, spleen. Absence of enteric contrast limits assessment of the alimentary tract. No suspicious CT finding of the upper GI, small bowel, appendix visualized medial to the cecum, or colon evident. Negative for ascites, free air, hernias. Normal adrenal glands. Symmetric cortical phase enhancement of the kidneys. No focal renal lesions or hydronephrosis. No abnormality along the course of the nondilated ureters. Unremarkable distended urinary bladder. Enlarged prostate with a few coarse calcifications. Symmetric seminal vesicles. Negative for lymphadenopathy. Normal diameter abdominal aorta with only minimal atherosclerotic plaque. Normal diameter common and external iliac arteries. Negative for aortoiliac arterial dissection or hemodynamic significant stenosis. Negative for stenosis of the celiac axis, superior mesenteric artery, renal arteries. Normal opacification of the inferior mesenteric artery. Negative for suspicious osseous lesions of the lumbar sacral spine, pelvis, or proximal femurs. Polyarticular mild degenerative arthropathy. ABDOMEN PELVIS IMPRESSION: 1. No evidence for dissection or aneurysm of the abdominal aorta or iliac arteries. 2. No acute abdominal pelvic pathologic process evident. Results and recommendation for consideration of follow-up bone scan to assess the lesion at the LEFT fifth rib discussed with charge nurse Kelsea at 03/10/2017 8:14 AM EDT
== END 2017-03-10 02:55 | disposition home or self-care (01) ==
LOC: ED 19:36
DX: R05 Cough (principal); R07.9 Chest pain, unspecified; M94.0 Chondrocostal junction syndrome [Tietze]
CPT/HCPCS: 36415; 71020; 71275; 74174; 80053; 83605; 83690; 83735; 84484; 85025; 85379; 85610; 85730; 93005; 96372; 99284; A9270-GY; J1885; Q9967

== ENCOUNTER 2017-08-18 05:52 | Day surgery (SDC) | payer OTHER ==
[~2017-08-18 05:52] MED LIST changes: +Buffered Lidocaine 0.9% SYRIN* 5 ML/SYR SYRINGE INTRADERM ONE; +DiMENhydriNATE IV* 50 MG/ML VIAL IV PUSH PRN; -Diazepam TAB(*) 5 MG PO ONE; -Ketorolac INJ* 30 MG/ML 1 ML VIAL IV PUSH ONE; +Morphine INJ* 2 MG/ML 1 ML CARPUJECT IV PRN; -NS 0.9% 1000 ML* 1,000 ML IV ONE; +Naloxone* 0.4 MG/ML 1 ML VIAL IV PRN; +PROCHLORPERAZINE INJ 5 MG/ML 2 ML VIAL IV PRN; +Scopolamine 1.5 mg* PATCH TRANSDERM PRN; +fentaNYL* 50 MCG/ML 2 ML VIAL (100 MCG VIAL) IV PRN; +oxyCODONE/Acetamin 5/325 MG* TAB PO PRN
[2017-08-18] MEDS ORDERED: Famotidine IV* 10 MG/ML 2 ML (20 mg) ONE (05:57)
[2017-08-18] MEDS ORDERED: Buffered Lidocaine 0.9% SYRIN* 5 ML/SYR SYRINGE ONE (05:58)
[2017-08-18] MEDS ORDERED: ceFAZolin 2 GM PREMIX (*) 2 GM/50 ML BAG IVPB ONE (05:58)
[2017-08-18] MEDS ORDERED: Famotidine IV* 10 MG/ML 2 ML (20 mg) IV ONE (06:00)
[2017-08-18] MEDS ORDERED: Bupivacaine 0.25% SDV* 30 ML ONE (07:13)
[2017-08-18] MEDS ORDERED: Bupivacaine 0.5% SDV PF* 10-30ML VIAL ONE (07:13)
[2017-08-18] MEDS ORDERED: KETAMINE HCL* 50 MG/ML 10 ML VIAL ONE (07:14)
[2017-08-18] MEDS ORDERED: Midazolam* 1 MG/ML 10 ML VIAL (10 MG) ONE (07:14)
[2017-08-18] MEDS ORDERED: fentaNYL* 50 MCG/ML 2 ML VIAL (100 MCG VIAL) ONE ×2 (07:14→07:41)
[2017-08-18] MEDS ORDERED: Ketorolac INJ* 30 MG/ML 1 ML VIAL ONE (07:42)
[2017-08-18] MEDS ORDERED: Ondansetron INJ* 2 MG/ML VIAL ONE (07:42)
[2017-08-18] MEDS ORDERED: Propofol* 10 MG/ML 20 ML BTL IV PUSH ONE (07:42)
[2017-08-18] MEDS ORDERED: Dexamethasone IV* 4 MG/ML 1 ML (4 MG) ONE (07:42)
[2017-08-18] MEDS ORDERED: Lidocaine 2% PF * 5 ML VIAL ONE (07:42)
[2017-08-18] MEDS ORDERED: Acetaminophen TAB* 325 MG ONE (10:24)
[2017-08-18 10:41] VITALS: BP 132/74
--- NOTE | 2017-08-18 11:20 | OP ---
Operative Report - Blank - Operative Report Date of Operation: 08/18/17 Note: PATIENT: Chris Ivan DATE OF : 1950 DATE OF SURGERY: SURGEON: Dino Ramirez MD [employer] PILOT: NEHAL King, whos assistance was necessary for positioning, retraction, help with instrumentation, and closure. ANESTHESIOLOGIST: Maxwell Irvin MD PREOPERATIVE DIAGNOSIS: Left osteochondral lesion of the talus POSTOPERATIVE DIAGNOSIS: Left osteochondral lesion of the talus OPERATION: 1. Left ankle arthroscopy with extensive debridement. 2. Curettage and excision of talar osteochondral lesion. 3. Implantation of juvenile particulated allograft cartilage to the talar osteochondral lesion. ANESTHESIA: GETA IMPLANTS: DeNovo juvenile particulated allograft cartilage ([place]) TOURNIQUET TIME: Less than 1 hour with calf tourniquet at 225mmHg SPECIMENS: none ESTIMATED BLOOD LOSS: minimal COMPLICATIONS: none STATUS: Stable from the operating room to the recovery room and then home. INDICATIONS FOR PROCEDURE: Chrsi has had longstanding problems with his left ankle. He has had 2 prior surgeries on the left ankle, but continues to have pain from an osteochondral lesion of the talus. Both operative and non operative treatment alternatives were reviewed. Further, the nature and risks of surgery were reviewed in careful detail, in the office as well as the pre-operative holding area. Our discussions regarding the risks of surgery included, but were not limited to, infection, wound problems, nerve injury, neuroma, RSD, persistent symptoms, blood clot, failure of the surgery, and even the remote chance of catastrophic complication, including loss of limb. DESCRIPTION OF PROCEDURE: The patient was seen in the preoperative holding unit and informed written consent was obtained. The appropriate extremity was marked. The patient was then brought to the operating room and carefully positioned on the operating room table. Anesthesia was induced. All bony prominences were padded with great care. A chlorhexidine based pre-scrub was performed followed by a chloraprep prep and drape in standard sterile fashion. A surgical safety pause was then conducted in which we confirmed the appropriate patient, extremity, planned procedure, availability of equipment, indication and administration of prophylactic antibiotics, and DVT prophylaxis in the form of a compression boot on the non-surgical extremity. I began with placement of a sterile calf tourniquet 3 finger-breadths distal to the fibular neck. An Esmarch exsanguination of the limb was then performed and the tourniquet inflated. The leg was positioned in the noninvasive ankle arthroscopy leg torres setup. I began by establishing the anteromedial portal. I utilized a spinal needle for this. Great care was taken to protect the superficial neurovascular structures. Under direct visualization, I then established an anterolateral portal. Great care was taken to protect the superficial peroneal nerve. I utilized the full radius shaver to remove a considerable amount of synovitis from the anterior aspect of the ankle joint. This was carefully removed to give a nice view of the ankle joint. There was an apparent osteochondral lesion of the talus at the medial talar dome. There were no additional chondral lesions appreciated. At this point, I utilized a ringed curette to remove loose debris from within the osteochondral lesion. This was curetted back to a stable rim around the perimeter of lesion, which measured 15x8 mm. The calcified cartilage layer was then removed. I then again utilized the full radius shaver to remove all additional debris from the ankle joint. At this point, the inflow to the ankle scope was shut off in the anteromedial portal was extended. The ankle joint was fully dried with the use of suction and pledglets. Once fully dry, the scope was then reinserted through the anterolateral portal. Two drops of fibrin glue were placed into the base of the osteochondral lesion. Then, one package worth of juvenile particulated cartilage allograft was placed into the defect utilizing an extra arthroscopy cannula through the anteromedial incision. There was good coverage of the lesion. I used a [place] elevator to contour the allograft into the defect. Then, another 3 drops of fibrin glue were placed into the defect, and this provided good fill of the lesion. We then waited for 5 min. to make sure that the fibrin glue had cured before proceeding. I removed the arthroscopic equipment and closed the incisions in a layered fashion utilizing 3-0 Monocryl and 3-0 nylon suture. At this point, a sterile dressing was applied and the ankle was splinted in a neutral position. The patient was then awakened from anesthesia and transferred to the recovery room in stable condition. There were no complications. All needle and sponge counts were correct at the end of the case. ATTESTATION: I attest I was present and scrubbed and performed the critical portions of the procedure myself. POSTOPERATIVE PLAN: The patient will remain nonweightbearing for an anticipated duration of six weeks. Follow up will be in two weeks for likely suture removal, Steri-Strip application and transition into a tall Aircast boot. The patient may begin gentle active dorsiflexion and plantarflexion of the ankle beginning two weeks postoperatively.
[2017-08-21] MEDS ORDERED: Scopolamine PATCH Remove* 1 NOTE MISC PATCH OFF ONE (05:42)
== END 2017-08-18 11:11 | disposition home or self-care (01) ==
LOC: OR 05:52
PROVIDERS: ATTEND Orthopaedic Surgery
DX: M93.272 Osteochondritis dissecans, left ankle and joints of left foot (principal); M25.572 Pain in left ankle and joints of left foot
CPT/HCPCS: 36415; 86803; A9270-GY; C1776; J0690; J1100; J1885; J2250; J2405; J2704; J3010

== ENCOUNTER 2018-03-21 21:42 | Emergency (ER) | payer OTHER ==
[2018-03-21 21:58] VITALS: BP 106/62
--- NOTE | 2018-03-21 22:32 | UC ---
Skin Complaint HPI - HPI Summary HPI Summary: 68 y/o male presents to the urgent care c/o red rash w/ swelling on dorsal side of RT foot s/p bee sting in the RT big toe 4 days ago. Pt reports he has had bee sting, but never like this one. Red rash is getting bigger warm to touch and swollen. He has had a lot of itchiness to the point of not being able to sleep. He has a lot of itchiness. He has applied Benadryl topical gel w/o any improvement. Pain is 3/10 dull. Pt denies fever, calf pain, SOB, chest pain, abdominal pain, N/V/D - History of Current Complaint Chief Complaint: UCSkin Time Seen by Provider: 03/21/18 22:20 Stated Complaint: BEE STING Hx Obtained From: Patient Onset/Duration: Sudden Onset, Lasting Days - 2 days ago, Still Present, Worse Since - today Skin Exposure Onset/Duration: Days Ago - 2 days, Worse Since: - today Timing: Constant Onset Severity: Moderate Current Severity: Moderate Pain Intensity: 3 Pain Scale Used: 0-10 Numeric Location: Discrete, Foot (Right) - RT foot rash and swelling s/p bee sting Character: Swelling, Pruritus, Redness, Raised, Painful Aggravating Factor(s): Touch Alleviating Factor(s): OTC Creams/Salves Associated Signs & Symptoms: Positive: Rash, Tenderness. Negative: Difficulty Breathing, Fever, Hoarseness, Throat Tightening, Drainage Related History: Possible Reaction to: Insect - Allergy/Home Medications Allergies/Adverse Reactions: Allergies Allergy/AdvReac Type Severity Reaction Status Date / Time No Known Allergies Allergy Verified 08/18/17 06:14 Review of Systems Constitutional: Negative Skin: Rash - RT foot painful red rash, swelling and itchiness s/p bee sting Eyes: Negative ENT: Negative Respiratory: Negative Cardiovascular: Negative Gastrointestinal: Negative Genitourinary: Negative Motor: Negative Neurovascular: Negative Musculoskeletal: Negative Neurological: Negative Psychological: Negative Is Patient Immunocompromised?: No All Other Systems Reviewed And Are Negative: Yes PMH/Surg Hx/FS Hx/Imm Hx - Additional Past Medical History Additional PMH: Vital Signs Reviewed: Yes General: well developed, well nourished male sitting in the examining table w/o any apparent distress. Eyes: Positive: Conjunctiva Clear - PERRLA, EOMI ENT: Positive: Normal ENT inspection, Hearing grossly normal, Pharynx normal, TMs normal Neck: Positive: Supple, Nontender, No Lymphadenopathy Respiratory: Positive: Chest nontender, Lungs clear, Normal breath sounds Cardiovascular: Positive: RRR, No Murmur, Pulses Normal Abdomen Description: Positive: Nontender, No Organomegaly, Soft. Negative: CVA Tenderness (R), CVA Tenderness (L) Bowel Sounds: Positive: Present Musculoskeletal: Positive: Strength Intact, ROM Intact, No Edema Neurological Exam: Normal Psychological Exam: Normal Skin: Positive: rashes - Dorsal side of the distal foot at the base of toes w/ erythematous patch w/ indistinct borders, warm to touch, swelling and tender to palpation., signs of excoriation about 4.0cm x 5cm in size Previously Healthy: Yes - Pt denies PHMX Other History Of: Negative For: HIV, Hepatitis B, Hepatitis C, Anticoagulant Therapy - Surgical History Surgical History: Yes Surgery Procedure, Year, and Place: 07/1971 - FX'D Lt ANKLE. 1999- ARTHROSCOPIC - Lt [place]. 1964 & PILONIDAL CYST REMOVED. 12/2013 ARTHROSCOPIC LEFT ANKLE. 2018 ankle surgery - Family History Known Family History: Positive: None - Pt denies FMHX Negative: Cardiac Disease, Hypertension, Diabetes - Social History Occupation: Retired Lives: With Family Alcohol Use: Weekly Alcohol Amount: 6 weekly-BEER Substance Use Type: None Smoking Status (MU): Never Smoked Tobacco - Immunization History Most Recent Influenza Vaccination: NO, states it made him sick last time he got it Physical Exam - Summary Physical Exam Summary: Vital Signs Reviewed: Yes General: well developed, well nourished male sitting in the examining table w/o any apparent distress. Eyes: Positive: Conjunctiva Clear - PERRLA, EOMI ENT: Positive: Normal ENT inspection, Hearing grossly normal, Pharynx normal, TMs normal Neck: Positive: Supple, Nontender, No Lymphadenopathy Respiratory: Positive: Chest nontender, Lungs clear, Normal breath sounds Cardiovascular: Positive: RRR, No Murmur, Pulses Normal Abdomen Description: Positive: Nontender, No Organomegaly, Soft. Negative: CVA Tenderness (R), CVA Tenderness (L) Bowel Sounds: Positive: Present Musculoskeletal: Positive: Strength Intact, ROM Intact, No Edema Neurological Exam: Normal Psychological Exam: Normal Skin: Positive: rashes - Dorsal side of RT distal foot at the base of toes w/ erythematous patch w/ indistinct borders, warm to touch, swelling and tender to palpation. Sensation WNL, capillary refill brisk, pulses WNL Triage Information Reviewed: Yes Vital Signs: Initial Vital Signs Temp 97.8 F 03/21/18 21:51 Pulse 69 03/21/18 21:51 Resp 16 03/21/18 21:51 BP 106/62 03/21/18 21:51 Pulse Ox 98 03/21/18 21:51 Course/Dx - Course Course Of Treatment: 68 y/o male presents to the urgent care c/o red rash w/ swelling on dorsal side of RT foot s/p bee sting in the RT big toe 4 days ago. Pt reports he has had bee sting, but never like this one. Red rash is getting bigger warm to touch and swollen. He has had a lot of itchiness to the point of not being able to sleep. He has a lot of itcheness.He has applied Benadryl topical gel w/o any improvement. Pain is 3/10 dull. Pt denies fever, calf pain , SOB, chest pain, abdominal pain, N/V/D. Hx obtained. Pt w/ local allergic reaction s/p bee sting and now co-infected w/ cellultis on examination. Pt Rx Keflex PO, Prednisone PO, Benadryl PO, and topical Hydrocortisone topical cream , rash demarcated with a skin marker and Advised if rash doubles in size and if she develops fever to go to the ER for further treatment. First dose given at the clinic except for Bendaryl PO which was dispensed home to alleviate symptoms. D/C instructions explained. Pt understood and agreed. Pt left clinic hemodynamically stable, A&OX3 - Differential Diagnoses - Skin Complaint Differential Diagnoses: Abscess, Allergic Reaction, Cellulitis, Contact Dermatitis, Local Allergic Reaction, Urticaria - Diagnoses Provider Diagnoses: 1- Local allergic reaction s/p bee sting. 2-Cellultiis of RT foot s/p bee sting Discharge - Sign-Out/Discharge Documenting (check all that apply): Patient Departure - D/c home All imaging exams completed and their final reports reviewed: No Studies - Discharge Plan Condition: Stable Disposition: HOME Prescriptions: Cephalexin CAP* [Keflex CAP*] 500 mg PO QID #27 cap diPHENhydraMINE PO* [Benadryl PO 25 MG TAB*] 25 mg PO Q6H PRN #30 tab PRN Reason: pruritus Hydrocortisone 1% CREAM* [Hytone Cream 1%*] 1 applic TOPICAL BID PRN #1 tube PRN Reason: Rash predniSONE TAB* [Deltasone 20 MG TAB*] 20 mg PO DAILY #8 tab Patient Education Materials: Cellulitis (ED), Insect Bite or Sting (ED) Referrals: Nirali Johnson MD [Primary Care Provider] - 3 Days Additional Instructions: 1-Please take full course of Antibiotic. Take Prednisone PO as directed starting tomorrow to alleviate symptoms. first dose given tonight. 2- If redness and swelling doubles in size after 48 hrs of taking antibiotic and fever develops please go to the ER immediately. 3-Avoid standing for long periods of time or flexing your foot, keep it elevated 4-Take Bendaryl PO as directed to alleviate itchiness 5- Apply hydrocortisone topical cream over rash as directed 6-Please F/u with your PCP or return to the urgent care in 3 days if not improvement for further evaluation and treatment. - Billing Disposition and Condition Condition: STABLE Disposition: Home
[2018-03-21] MEDS ORDERED: diPHENhydraMINE PO* 25 MG PO ONE (22:44)
[2018-03-21] MEDS ORDERED: Cephalexin CAP* 500 MG PO ONE (22:44)
[2018-03-21] MEDS ORDERED: predniSONE TAB* 20 MG PO ONE (22:44)
[2018-03-21] MEDS ORDERED: diPHENhydraMINE PO* 25 MG ONE (22:48)
== END 2018-03-21 23:05 | disposition home or self-care (01) ==
LOC: UCEAST 21:42
DX: T63.441A Toxic effect of venom of bees, accidental (unintentional), initial encounter (principal); L03.115 Cellulitis of right lower limb; Y92.9 Unspecified place or not applicable
CPT/HCPCS: 99213; A9270-GY; G0463; J7512

== ENCOUNTER 2018-05-14 20:29 | Observation (INO) | payer OTHER ==
--- OUTSIDE RECORDS SUMMARY | 2018-05-14 20:51 | XMS REPORT ---
:1950 External Reference #:[id number] Author Organization [facility] Address [address] [place] [address] Phone [phone] Care Team Providers Name Role Phone Nirali Johnson Care Team Information Brand Ambassador Promotional Model Unavailable Nirali Johnson Primary Care Physician Unavailable Payers Type Date Identification Payment Subscriber Numbers Provider Health Maintenance Effective: Policy Number: Phillip [facility] (O) 07/11/2014 [id number] [employer] Number: [id number] [id number] PayID: [id number] [place] [address] Problems Date Description Provider Status Onset: 05/31/2011 Deficiency anemias Sugar Gonzalez M.D. Active Onset: 05/31/2011 Insomnia Sugar Gonzalez M.D. Active Onset: 05/03/2018 Angina pectoris Nirali Johnson M.D. Active Onset: 10/23/2015 Impaired fasting glycaemia Nirali Johnson M.D. Active Onset: 09/20/2013 Vitamin D deficiency Nirali Johnson M.D. Active Onset: 01/05/2013 Mood disorder Nirali Johnson M.D. Active Family History Date Family Member(s) Problem(s) Comments General No lung, colon, Breast CA. : (age 76 Years) Father due to from complications of kidney surgery Father drinker, smoker. : (age 54 Years) Mother due to [place] Mother drinker, smoker. First Daughter healthy. lives in [place] Second Daughter healthy. [place]. Third Daughter healthy. School in [place]. First Brother healthy. [place], [place]. Estranged. First Sister patient not in touch with his sister Social History Type Date Description Comments Marital Status Patient is Living Situation Lives with spouse and daughter Sleep Typically sleeps 5 hours a night. Dog wakes them up early in the morning. 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 Smoking Patient has never smoked Daily Caffeine Daily Caffeine 1-2 cups. black. Exercise Type/Frequency back exercises 1-2 daily, Current doing ankle pt at home. Allergies, Adverse Reactions, Alerts Date Description Reaction Status Severity Comments 03/29/2011 NKDA active 12/11/2015 Seasonal active Medications Medication Date Status Form Strength Qnty SIG Indications Ordering Provider Aspirin Ec Low 05/[address] 81mg 100tabs 1 by I20.9 Nirali Gonzalez Dose /2017 mouth Elizabeth, every M.D. day Trazodone HCL 07/06 Active Tablets 50mg 60tabs take G47.09 Nirali Gonzalez /Jose Maria one/half Elizabeth, to two M.D. tablets by mouth at bedtime as needed for sleep Ambien 05/12 Active Tablets 10mg 30tabs 1 by Nirali Gonzalez /Jose Maria mouth Elizabeth, every M.D. night at bedtime as needed sleep Fluocinolone 10/23 Active Cream 0.025% 30units Apply To Nirali Gonzalez Acetonide The Elizabeth Affected M.D. Area Nightly as Directed Fish Oil 10/05 Active Capsules 300mg Nirali Gonzalez Concentrate /2016 Edward Johnson Vitamin D3 Ultra 10/05 Active Capsules 5000Unit 1 daily. Nirali Gonzalez Strength /2016 Edward Johnson Iron 10/05 Active Tablets 325(65Fe) 1 by Nirali Gonzalez /Jose Maria mg mouth Elizabeth, every M.D. day Synalar Cream 10/01 Active 120cc with L21.8 Matt A. .025% 60cc /2015 crystal [place], Compounded With m cream M.D. Lubriderm Cream 60cc apply nightly to affected area Amoxicillin 03/29 Hx Tablets 875mg 20tabs 1 by J02.9 mouth Jeferson COLLATOR HAND - twice a 04/08 day x days Cipro HC 01/21 Hx Suspension 0.2-1% 10ml instill H60.8x2 1-2 Henrry, - drops [employer] 02/25 left ear 2 times daily x 5 days Physical Therapy 12/10 Hx treatmen M25.512 t [facility] [place], - evaluati Afnp-C 12/13 on left shoulder pain No Active 10/01 Hx Unknown Medications /2015 - 10/01 Melatonin 09/19 Hx Capsules 3mg 60caps 1 by Nirali Gonzalez /2014 mouth Elizabeth, - every M.D. 10/01 night at bedtime Indomethacin 09/19 Hx Capsules 25mg 60caps 1-2 by 274.9 Nirali Gonzalez /2014 mouth Elizabeth, - 2-3 M.D. 10/01 times day. you must take it with food. Vitamin D 09/20 Hx Capsules [id number] 12caps 1 po 268.9 Nirali Gonzalez /2013 weekly x Elizabeth, - 12. M.D. 08/30 Azithromycin 11/28 Hx Tablets 250mg 6tabs 2 po 466.0 today Jeferson COLLATOR HAND - and 1 12/03 tab x days Benzonatate 11/28 Hx Capsules 100mg 30caps 1 po tid 466.0 prn for SYED Govea - cough 12/08 Cephalexin 01/24 Hx Tablets 500mg 14tabs 1 tab 989.5 bid x 7 Ivelisse - days Afnp-C 11/28 Methylprednisolo 01/24 Hx Tablets 4mg 1pk as 989.5 Mona ne Dose directed Don [place] Afnp-C 01/31 Ferrous Sulfate 03/31 Hx Tablets 325(65Fe) 30tabs 1 po qd Sugar Cespedes /2010 mg Carlos, - M.D. 01/24 Doxycycline 03/[address] 100mg 2caps 2 po 782.1 Nirali Gonzalez Hyclate /2010 Part today. Don Johnson.DKhushbu 03/29 Medrol Dosepak 03/08 Hx Tablets 4mg 1PK take as 782.1 Nirali Gonzalez /2010 directed Don Johnson.Lamin 03/29 Prednisone 03/08 Hx Tablets 20mg 124tabs 2 po qd 995.3 Nirali Gonzalez x 4d, Elizabeth - then 1 M.D. 03/29 po qd x 4d take with food 1/2 po x 4 days Physical Therapy 05/05 Hx right 726.32 Sugar M. lateral Carlos, - epicondy M.DKhushbu 03/08 litis, assess and treat Flector Patch 05/05 Hx Samples apply to 726.32 Sugar M. painful Carlos, - area bid M.D. 03/08 Ambien Hx Tablets 10mg 30tabs 1 by Nirali Gonzalez /0000 mouth Elizabeth, - every M.D. 10/01 night at bedtime as needed sleep call ut Sertraline HCL Hx Tablets 50mg 90tabs 1 po qd Sugar M. / Carlos, - M.D. 05/05 Naproxen 0000 Hx Tablets 500mg 30tabs 1 po bid Unknown /0000 prn pain - 08/30 take with food Ciprofloxacin Hx Tablets 500mg 20tabs 1 po bid Unknown HCL /0000 - 08/30 Vitamin D 0000 Hx Tablets 2000Unit 1 by Unknown /0000 mouth - every Naproxen 0000 Hx Tablets 500mg 60tabs 1 tab by Mona /0000 mouth Ivelisse, - twice a Afnp-C Immunizations CPT Code Status Date Vaccine Lot # [id number] Given 10/02/2015 Pneumococcal Conjugate Vacc-13 [id number] Vital Signs Date Vital Result Comment 05/03/2018 BP Systolic 120 mmHg BP Diastolic 80 mmHg Heart Rate 72 /min Body Temperature 97.9 F Respiratory Rate 16 /min Height 63 inches 5'3" Weight 175.00 lb BMI (Body Mass Index) 31.0 kg/m2 07/06/2017 BP Systolic 148 mmHg BP Diastolic 80 mmHg Heart Rate 78 /min Body Temperature 98.0 F Height 63 inches 5'3" Weight 167.12 lb BMI (Body Mass Index) 29.6 kg/m2 10/05/2016 BP Systolic 110 mmHg BP Diastolic 66 mmHg Heart Rate 60 /min Body Temperature 97.9 F Respiratory Rate 18 /min Height 63 inches 5'3" Weight 153.00 lb BMI (Body Mass Index) 27.1 kg/m2 03/29/2016 BP Systolic 102 mmHg BP Diastolic 70 mmHg Heart Rate 66 /min Body Temperature 97.6 F Height 63 inches 5'3" Weight 153.50 lb BMI (Body Mass Index) 27.2 kg/m2 02/26/2016 BP Systolic 128 mmHg BP Diastolic 68 mmHg Heart Rate 68 /min Body Temperature 97.7 F Respiratory Rate 16 /min O2 % BldC Oximetry 98 % Height 63 inches 5'3" Weight 158.00 lb BMI (Body Mass Index) 28.0 kg/m2 01/22/2016 BP Systolic 130 mmHg BP Diastolic 80 mmHg Heart Rate 56 /min Body Temperature 97.7 F Respiratory Rate 16 /min Height 63 inches 5'3" Weight 158.00 lb BMI (Body Mass Index) 28.0 kg/m2 12/11/2015 BP Systolic 126 mmHg BP Diastolic 64 mmHg Heart Rate 64 /min Body Temperature 97.1 F Respiratory Rate 18 /min Height 63 inches 5'3" Weight 159.00 lb BMI (Body Mass Index) 28.2 kg/m2 10/23/2015 BP Systolic 138 mmHg BP Diastolic 70 mmHg Heart Rate 68 /min Body Temperature 98.1 F Respiratory Rate 18 /min Height 63 inches 5'3" Weight 162.00 lb BMI (Body Mass Index) 28.7 kg/m2 10/02/2015 BP Systolic 110 mmHg BP Diastolic 70 mmHg Heart Rate 60 /min Body Temperature 98.7 F Respiratory Rate 18 /min Height 63 inches 5'3" Weight 162.00 lb BMI (Body Mass Index) 28.7 kg/m2 Right Visual Acuity Distance 20/20 Left Visual Acuity Distance 20/20 09/19/2014 BP Systolic 100 mmHg BP Diastolic 64 mmHg Heart Rate 64 /min Body Temperature 97.5 F Respiratory Rate 16 /min Height 63.5 inches 5'3.50" Weight 171.00 lb BMI (Body Mass Index) 29.8 kg/m2 08/30/2014 BP Systolic 90 mmHg BP Diastolic 60 mmHg Heart Rate 72 /min Body Temperature 96.1 F Respiratory Rate 16 /min Height 64 inches 5'4" Weight 170.00 lb BMI (Body Mass Index) 29.2 kg/m2 09/20/2013 BP Systolic 120 mmHg BP Diastolic 80 mmHg Heart Rate 80 /min Body Temperature 98.1 F Respiratory Rate 16 /min Height 64 inches 5'4" Weight 167.00 lb BMI (Body Mass Index) 28.7 kg/m2 07/24/2013 BP Systolic 122 mmHg BP Diastolic 80 mmHg Heart Rate 80 /min Body Temperature 98.6 F Respiratory Rate 16 /min Height 65 inches 5'5" Weight 167.50 lb BMI (Body Mass Index) 27.9 kg/m2 01/05/2013 BP Systolic 108 mmHg BP Diastolic 60 mmHg Heart Rate 64 /min Body Temperature 96.7 F Respiratory Rate 16 /min Height 65 inches 5'5" Weight 158.50 lb BMI (Body Mass Index) 26.4 kg/m2 11/28/2012 BP Systolic 120 mmHg BP Diastolic 82 mmHg Heart Rate 64 /min Body Temperature 98.2 F Respiratory Rate 18 /min Height 65 inches 5'5" Weight 157.00 lb BMI (Body Mass Index) 26.1 kg/m2 01/25/2012 BP Systolic 110 mmHg BP Diastolic 60 mmHg Heart Rate 64 /min Body Temperature 97.5 F Height 65 inches 5'5" Weight 153.00 lb BMI (Body Mass Index) 25.5 kg/m2 03/29/2011 BP Systolic 110 mmHg BP Diastolic 60 mmHg Heart Rate 60 /min Body Temperature 97.3 F Respiratory Rate 14 /min Height 65 inches 5'5" Weight 151.00 lb BMI (Body Mass Index) 25.1 kg/m2 Right Visual Acuity Distance 20/20 corrected Left Visual Acuity Distance 20/20 corrected 03/08/2011 BP Systolic 100 mmHg BP Diastolic 60 mmHg Heart Rate 60 /min Body Temperature 97.3 F Respiratory Rate 20 /min Height 65 inches 5'5" Weight 152.00 lb BMI (Body Mass Index) 25.3 kg/m2 06/29/2010 BP Systolic 102 mmHg BP Diastolic 60 mmHg Heart Rate 80 /min Body Temperature 97.8 F Height 65 inches 5'5" Weight 156.00 lb BMI (Body Mass Index) 26.0 kg/m2 06/15/2010 BP Systolic 124 mmHg BP Diastolic 60 mmHg Heart Rate 80 /min Height 65 inches 5'5" Weight 155.00 lb BMI (Body Mass Index) 25.8 kg/m2 05/05/2010 BP Systolic 120 mmHg BP Diastolic 70 mmHg Heart Rate 64 /min Body Temperature 97.6 F Height 65 inches 5'5" Weight 156.00 lb BMI (Body Mass Index) 26.0 kg/m2 03/23/2010 BP Systolic 92 mmHg BP Diastolic 64 mmHg Heart Rate 66 /min Body Temperature 98.0 F Height 65 inches 5'5" Weight 151.00 lb BMI (Body Mass Index) 25.1 kg/m2 07/07/2009 BP Systolic 100 mmHg BP Diastolic 60 mmHg Heart Rate 72 /min Body Temperature 97.1 F Height 65 inches 5'5" Weight 60.00 lb BMI (Body Mass Index) 10.0 kg/m2 Results Test Date Test Result H/L Range Note Laboratory test 02/14/2018 Surgical SEE RESULT BELOW 1, 2 finding Pathology Laboratory test 02/02/2018 PSA Diagnostic 7.844 ng/mL High 0-4.0 3 finding Laboratory test 12/19/2017 PSA Diagnostic 7.076 ng/mL High 0-4.0 4 finding Laboratory test 11/22/2017 PSA Screening 7.492 ng/mL High 0-4.0 5 finding Laboratory test 08/18/2017 Hepatitis C Ab - Nonreactive Nonreactive finding Self Ref CBC Auto Diff 03/09/2017 White Blood Count 6.2 10^3/uL 3.5-10.8 Red Blood Count 4.78 10^6/uL 4.0-5.4 Hemoglobin 14.3 g/dL 14.0-18.0 Hematocrit 42 % 42-52 Mean Corpuscular Volume 88 fL 80-94 Mean Corpuscular Hemoglobin 30 pg 27-31 Mean Corpuscular HGB Conc 34 g/dL 31-36 Red Cell Distribution Width 14 % 10.5-15 Platelet Count 204 10^3/uL 150-450 Mean Platelet Volume 8 um3 7.4-10.4 Abs Neutrophils 4.0 10^3/uL 1.5-7.7 Abs Lymphocytes 1.1 10^3/uL 1.0-4.8 Abs Monocytes 0.6 10^3/uL 0-0.8 Abs Eosinophils 0.4 10^3/uL 0-0.6 Abs Basophils 0 10^3/uL 0-0.2 Abs Nucleated RBC 0 10^3/uL Granulocyte % 63.8 % 38-83 Lymphocyte % 18.3 % Low 25-47 Monocyte % 10.2 % High 1-9 Eosinophil % 7.0 % High 0-6 Basophil % 0.7 % 0-2 Nucleated Red Blood Cells % 0 Laboratory test finding 03/09/2017 Magnesium 2.3 mg/dL 1.9-2.7 Lipase 23 U/L 11.0-82.0 Troponin I 0.00 ng/mL <0.04 Inr/Protime 03/09/2017 Inr 0.92 0.89-1.11 Comp Metabolic Panel 03/09/2017 Sodium 137 mmol/L 133-145 Potassium 4.0 mmol/L 3.5-5.0 Chloride 102 mmol/L 101-111 Co2 Carbon Dioxide 31 mmol/L 22-32 Anion Gap 4 mmol/L 2-11 Glucose 94 mg/dL 70-100 Blood Urea Nitrogen 28 mg/dL High 6-24 Creatinine 1.03 mg/dL 0.67-1.17 BUN/Creatinine Ratio 27.2 High 8-20 Calcium 9.4 mg/dL 8.6-10.3 Total Protein 6.8 g/dL 6.4-8.9 Albumin 4.4 g/dL 3.2-5.2 Globulin 2.4 g/dL 2-4 Albumin/Globulin Ratio 1.8 1-3 Total Bilirubin 0.30 mg/dL 0.2-1.0 Alkaline Phosphatase 41 U/L 34-104 Alt 9 U/L 7-52 Ast 16 U/L 13-39 Egfr Non- 72.0 >60 Egfr 92.6 >60 6 Laboratory test finding 03/09/2017 Partial Thrombo Time 38.0 seconds High 26.0-36.3 PTT D Dimer Quantitative < 200 ng/mL Less Than 230 7 Lactic Acid 0.8 mmol/L 0.5-2.0 8 Laboratory test finding 03/05/2017 Troponin I 0.00 ng/mL <0.04 CBC No Diff 03/05/2017 White Blood Count 5.5 10^3/uL 3.5-10.8 Red Blood Count 4.78 10^6/uL 4.0-5.4 Hemoglobin 14.2 g/dL 14.0-18.0 Hematocrit 42 % 42-52 Mean Corpuscular Volume 87 fL 80-94 Mean Corpuscular Hemoglobin 30 pg 27-31 Mean Corpuscular HGB Conc 34 g/dL 31-36 Red Cell Distribution Width 14 % 10.5-15 Platelet Count 217 10^3/uL 150-450 Mean Platelet Volume 8 um3 7.4-10.4 Comp Metabolic Panel 03/05/2017 Sodium 137 mmol/L 133-145 Potassium 4.2 mmol/L 3.5-5.0 Chloride 101 mmol/L 101-111 Co2 Carbon Dioxide 31 mmol/L 22-32 Anion Gap 5 mmol/L 2-11 Glucose 96 mg/dL 70-100 Blood Urea Nitrogen 19 mg/dL 6-24 Creatinine 0.94 mg/dL 0.67-1.17 BUN/Creatinine Ratio 20.2 High 8-20 Calcium 9.5 mg/dL 8.6-10.3 Total Protein 6.7 g/dL 6.4-8.9 Albumin 4.5 g/dL 3.2-5.2 Globulin 2.2 g/dL 2-4 Albumin/Globulin Ratio 2.0 1-3 Total Bilirubin 0.40 mg/dL 0.2-1.0 Alkaline Phosphatase 47 U/L 34-104 Alt 12 U/L 7-52 Ast 18 U/L 13-39 Egfr Non- 80.0 >60 Egfr 102.9 >60 9 Laboratory test finding 03/05/2017 D Dimer Quantitative < 200 ng/mL Less Than 230 10 Laboratory test finding 11/26/2016 PSA Screening 1.456 ng/mL 0-4.0 11 Laboratory test finding 10/05/2016 Vitamin D25 45 30-100 Laboratory test finding 09/29/2016 PSA 2.0 ng/mL 0.0-4.0 Comprehensive Metabolic 09/29/2016 Sodium 143 mEq/L 134-149 Prof Potassium 4.7 mEq/L 3.6-5.5 Chloride 106 mEq/L 94-112 Carbon Dioxide 26 mEq/L 21-32 Glucose 103 mg/dL 70-105 BUN 19 mg/dL 6-26 Creatinine 1.0 mg/dL 0.6-1.4 BUN/Creat Ratio 19.0 CALC 8.0-36.0 Calcium 9.8 mg/dL 8.6-10.2 Total Protein 6.9 g/dL 6.4-8.3 Albumin 4.6 g/dL 3.8-5.5 Globulin 2.3 g/dL 2.0-4.8 A/G Ratio 2.0 CALC 0.6-2.3 Alk. Phosphatase 47 U/L 22-95 Alt (SGPT) 13 U/L 7-35 Ast (Sgot) 19 U/L 5-34 Total Bilirubin 0.6 mg/dL 0.2-1.3 GFR Non- >60 ml/min/1.73m^ >=60 GFR >60 ml/min/1.73m^ >=60 Complete Blood Count 09/29/2016 WBC 4.4 x10^3/UL 3.6-9.6 RBC 4.35 x10^6/UL 3.90-5.70 HGB 13.4 g/dL 12.1-17.2 HCT 38 % 36-50 MCV 88.0 fL 82.2-97.4 MCH 30.8 pg 27.6-33.3 MCHC 35.1 g/dL 33.0-35.5 RDW 14.2 % High 11.6-13.7 PLT 271 x10^3/UL 150-400 MPV 7.7 fL 7.4-10.4 Gran # 3.1 x10^3/UL 1.5-7.2 Lymph# 1.1 x10^3/UL 0.7-4.9 Holmes# 0.2 x10^3/UL 0.1-0.9 Gran % 69.8 % 42.2-75.2 Lymph % 25.3 % 20.5-51.1 Holmes% 4.9 % 1.7-9.3 Lipid Profile 09/29/2016 Cholesterol 235 mg/dL High 120-200 Triglycerides 86 mg/dL 30-200 HDL Cholesterol 70 mg/dL 30-70 LDL (Calculated) 148 CALC High 0-129 VLDL Cholesterol 17 mg/dL 0-50 HDL Risk Factor 3.4 CALC 0.0-4.4 Testosterone, Free And Total 10/02/2015 Testosterone, Serum 398 ng/dL 348 -1197 12 Comment: See Comment: 12, 13 Free Testosterone(Direct) 4.5 pg/mL Low 6.6-18.1 12 Laboratory test finding 10/02/2015 TSH 1.99 mIU/L 0.50-6.00 Free T4 0.87 ng/dL 0.75-1.54 Vitamin D25 22 Low 30-100 Laboratory test finding 09/16/2015 PSA 1.8 ng/mL 0.0-4.0 14 Lipid Profile 09/16/2015 Cholesterol 190 mg/dL 120-200 Triglycerides 63 mg/dL 30-200 HDL Cholesterol 60 mg/dL 30-70 LDL (Calculated) 117 CALC 0-129 VLDL Cholesterol 13 mg/dL 0-50 HDL Risk Factor 3.2 CALC 0.0-4.4 Complete Blood Count 09/16/2015 WBC 5.0 x10^3/UL 3.6-9.6 RBC 4.67 x10^6/UL 3.90-5.70 HGB 12.2 g/dL 12.1-17.2 HCT 37 % 36-50 MCV 79.0 fL Low 82.2-97.4 15 MCH 26.1 pg Low 27.6-33.3 16 MCHC 33.1 g/dL 33.0-35.5 RDW 15.5 % High 11.6-13.7 PLT 242 x10^3/UL 150-400 MPV 7.6 fL 7.4-10.4 Gran # 3.4 x10^3/UL 1.5-7.2 Lymph# 1.3 x10^3/UL 0.7-4.9 Holmes# 0.3 x10^3/UL 0.1-0.9 Gran % 67.3 % 42.2-75.2 Lymph % 26.7 % 20.5-51.1 Holmes% 6.0 % 1.7-9.3 Comprehensive Metabolic Prof 09/16/2015 Sodium 137 mEq/L 134-149 Potassium 4.4 mEq/L 3.6-5.5 Chloride 101 mEq/L 94-112 Carbon Dioxide 29 mEq/L 21-32 Glucose 108 mg/dL High 70-105 17 BUN 19 mg/dL 6-26 Creatinine 1.0 mg/dL 0.6-1.4 BUN/Creat Ratio 19.0 CALC 8.0-36.0 Calcium 9.6 mg/dL 8.6-10.2 Total Protein 6.8 g/dL 6.4-8.3 Albumin 4.4 g/dL 3.8-5.5 Globulin 2.4 g/dL 2.0-4.8 A/G Ratio 1.8 CALC 0.6-2.3 Alk. Phosphatase 51 U/L 22-95 Alt (SGPT) 21 U/L 7-35 Ast (Sgot) 24 U/L 5-34 Total Bilirubin 0.4 mg/dL 0.2-1.3 GFR Non- >60 ml/min/1.73m^ >=60 GFR >60 ml/min/1.73m^ >=60 Creatinine 10/18/2014 Creatinine 0.91 mg/dL 0.67-1.17 Egfr Non- 83.9 >60 Egfr 107.9 >60 18 Laboratory test finding 10/18/2014 PSA Diagnostic 1.962 ng/mL 0-4.0 19 Laboratory test finding 10/18/2014 Blood Urea Nitrogen 17 mg/dL 6-24 Laboratory test finding 09/19/2014 Uric Acid 6.4 mg/dL 2.5-9.2 Vitamin D25 34 30-100 TSH 2.26 mIU/L 0.50-6.00 Comprehensive Metabolic Prof 09/06/2014 Sodium 136 mEq/L 134-149 Potassium 3.8 mEq/L 3.6-5.5 Chloride 99 mEq/L 94-112 Carbon Dioxide 28 mEq/L 21-32 Glucose 103 mg/dL 70-105 BUN 17 mg/dL 6-26 Creatinine 0.9 mg/dL 0.6-1.4 BUN/Creat Ratio 18.9 CALC 8.0-36.0 Calcium 9.3 mg/dL 8.6-10.2 Total Protein 7.2 g/dL 6.4-8.3 Albumin 4.5 g/dL 3.8-5.5 Globulin 2.7 g/dL 2.0-4.8 A/G Ratio 1.7 CALC 0.6-2.3 Alk. Phosphatase 55 U/L 22-95 Alt (SGPT) 16 U/L 7-35 Ast (Sgot) 20 U/L 5-34 Total Bilirubin 0.4 mg/dL 0.2-1.3 Lipid Profile 09/06/2014 Cholesterol 224 mg/dL High 120-200 Triglycerides 92 mg/dL 30-200 HDL Cholesterol 62 mg/dL 30-70 LDL (Calculated) 144 CALC High 0-129 VLDL Cholesterol 18 mg/dL 0-50 HDL Risk Factor 3.6 CALC 0.0-4.4 Complete Blood Count 09/06/2014 WBC 6.2 x10^3/UL 3.6-9.6 RBC 4.83 x10^6/UL 3.90-5.70 HGB 13.4 g/dL 12.1-17.2 HCT 40 % 36-50 MCV 83.0 fL 82.2-97.4 MCH 27.9 pg 27.6-33.3 MCHC 33.5 g/dL 33.0-35.5 RDW 12.4 % 11.6-13.7 PLT 221 x10^3/UL 150-400 MPV 7.4 fL 7.4-10.4 Gran # 4.7 x10^3/UL 1.5-7.2 Lymph# 1.3 x10^3/UL 0.7-4.9 Holmes# 0.2 x10^3/UL 0.1-0.9 Gran % 73.3 % 42.2-75.2 Lymph % 22.0 % 20.5-51.1 Holmes% 4.7 % 1.7-9.3 Laboratory test finding 11/07/2013 PSA Diagnostic 2.059 ng/mL 0-4.0 20 Laboratory test finding 11/07/2013 Blood Urea Nitrogen 20 mg/dL 6-24 Creatinine 11/07/2013 Creatinine 0.83 mg/dL 0.67-1.17 Egfr Non- 93.6 >60 Egfr 120.3 >60 21 Ua - Micro (Fma) 09/20/2013 Appearance CLEAR Color YELLOW Glucose NEGATIVE Bilirubin NEGATIVE Ketones NEGATIVE SP Grav <=1.005 Blood MODERATE PH 6.0 Protein NEGATIVE Urobil 0.2 Nitrite NEGATIVE Leukocytes (Fma/CMC/Centrex) NEGATITVE Hyaline - /Lpf Granular - /Lpf WBC (Fma,Centrex) 0 RBC 3-5 Mucus SM AMT /Lpf Epith - /Lpf Bacteria - /Hpf Amorphous - /Lpf Crystals, Fluid (Fma/CMC/CTX) - Z#Comments - Complete Blood Count 09/07/2013 WBC 4.3 x10^3/UL 3.6-9.6 RBC 4.97 x10^6/UL 3.90-5.70 HGB 13.7 g/dL 12.1-17.2 HCT 42 % 36-50 MCV 85.0 fL 82.2-97.4 MCH 27.7 pg 27.6-33.3 MCHC 32.5 g/dL Low 33.0-35.5 RDW 11.4 % Low 11.6-13.7 PLT 271 x10^3/UL 150-400 MPV 7.6 fL 7.4-10.4 Gran # 3.0 x10^3/UL 1.5-7.2 Lymph# 1.1 x10^3/UL 0.7-4.9 Holmes# 0.2 x10^3/UL 0.1-0.9 Gran % 69.1 % 42.2-75.2 Lymph % 26.0 % 20.5-51.1 Holmes% 4.9 % 1.7-9.3 Comprehensive Metabolic Prof 09/07/2013 Sodium 140 mEq/L 134-149 Potassium 4.8 mEq/L 3.6-5.5 Chloride 97 mEq/L 94-112 Carbon Dioxide 29 mEq/L 21-32 Glucose 105 mg/dL 70-105 22 BUN 22 mg/dL 6-26 Creatinine 1.0 mg/dL 0.6-1.4 BUN/Creat Ratio 22.0 CALC 8.0-36.0 Calcium 10.1 mg/dL 8.6-10.2 Total Protein 7.3 g/dL 6.3-8.1 Albumin 5.0 g/dL 3.8-5.5 Globulin 2.0 g/dL 2.0-4.8 A/G Ratio 2.2 CALC 0.6-2.3 Alk. Phosphatase 56 U/L 22-95 Alt (SGPT) 26 U/L 10-40 Ast (Sgot) 23 U/L 5-34 Total Bilirubin 0.5 mg/dL 0.2-1.3 Lipid Profile 09/07/2013 Cholesterol 229 mg/dL High 120-200 Triglycerides 81 mg/dL 30-200 HDL Cholesterol 56 mg/dL 30-70 LDL (Calculated) 157 CALC High 0-129 VLDL Cholesterol 16 mg/dL 0-50 HDL Risk Factor 4.1 CALC 0.0-4.4 Laboratory test finding 09/07/2013 Vitamin D25 23 Low 30-100 23 TSH 1.54 mIU/L 0.50-6.00 Comp Metabolic Panel 07/09/2012 Sodium 137 mmol/L 133-145 Potassium 3.7 mmol/L 3.5-5.0 Chloride 102 mmol/L 101-111 Co2 Carbon Dioxide 27.0 mmol/L 22-32 Anion Gap 8.0 mmol/L 2-11 Glucose 131 mg/dL High 70-100 Blood Urea Nitrogen 16 mg/dL 6-24 Creatinine 0.90 mg/dL 0.50-1.40 BUN/Creatinine Ratio 17.8 8-20 Calcium 9.2 mg/dL 8.1-9.9 Total Protein 7.1 g/dL 6.2-8.1 Albumin 4.3 g/dL 3.2-5.2 Globulin 2.8 g/dL 2-4 Albumin/Globulin Ratio 1.5 1-3 Total Bilirubin 1.9 mg/dL High 0.4-1.5 Alkaline Phosphatase 51 U/L 30-110 Alt 14 U/L 14-54 Ast 18 U/L 12-42 Egfr Non- 85.5 >60 Egfr 110.0 >60 24 CBC Auto Diff 07/09/2012 White Blood Count 12.6 10^3/uL High 4.8-10.8 Red Blood Count 4.74 10^6/uL 4.0-5.4 Hemoglobin 13.3 g/dL Low 14.0-18.0 Hematocrit 40 % Low 42-52 Mean Corpuscular Volume 84 fL 80-94 Mean Corpuscular Hemoglobin 28 pg 27-31 Mean Corpuscular HGB Conc 33 g/dL 31-36 Red Cell Distribution Width 13 % 10.5-15 Platelet Count 189 10^3/uL 150-450 Mean Platelet Volume 8 um3 7.4-10.4 Abs Neutrophils 11.0 10^3/uL High 1.5-7.7 Abs Lymphocytes 0.4 10^3/uL Low 1.0-4.8 Abs Monocytes 1.0 10^3/uL High 0-0.8 Abs Eosinophils 0 10^3/uL 0-0.6 Abs Basophils 0.1 10^3/uL 0-0.2 Abs Nucleated RBC 0 10^3/uL Manual Differential 07/09/2012 Neutrophil % 85.0 % High 38-83 Band % 5.0 % 0-8 Lymphocytes % 2.0 % Low 25-47 Monocytes % 7.0 % 0-13 Eosinophils % 1.0 % 0-6 Basophil % 0 % 0-2 Reactive Lymph % 0 % 0-6 Metamyelocytes % 0 % 0-2 Myelocytes % 0 % 0-1 Promyelocytes % 0 % Blast % 0 % RBC Morphology Normal Normal Urinalysis 07/09/2012 Urine Color Red Urine Appearance Turbid Urine Specific [place] 1.024 1.010-1.030 Urine Esterase 3+ Negative Urine Nitrate Positive Negative Urine Urobilinogen Negative E.U./dL Negative Urine Protein 3+ mg/dL Negative Urine pH 5.0 5-9 Urine Blood 3+ Negative Urine Ketones 2+ mg/dL Negative Urine Bilirubin 3+ Negative 25 Urine Glucose Trace mg/dL Negative Urine Microscopic 07/09/2012 Urine WBC 3+ (>10 /hpf) None Seen Urine RBC 3+ (>10 /hpf) None Seen Urine Mucus Present /lpf Absent Urine Epithelial Cells 1+ Squamous /hpf None Seen Bacteria Urine 1+ None Seen Urine Culture And Sensitivities 07/09/2012 Urine Culture (SEE NOTE) 26 Laboratory test finding 12/20/2011 PSA,Diagnostic 1.38 NG/ML 0-4 27 Ict Hemoccult ([facility]) 04/08/2011 Ict Hemoccult (1) neg Ict Hemoccult-(2) neg Ict-Hemoccult (3) neg Basic Metabolic Profile 03/29/2011 BUN 19 mg/dL 6-26 Calcium 9.6 mg/dL 8.6-10.2 Chloride 99 mEq/L 94-112 Creatinine 0.9 mg/dL 0.6-1.4 Carbon Dioxide 24 mEq/L 21-32 Glucose 91 mg/dL 70-105 Sodium 142 mEq/L 134-149 Potassium 4.5 mEq/L 3.6-5.5 BUN/Creat Ratio 21.3 Calc 8.0-36.0 Ua - Non Micro ([facility]) 03/29/2011 Appearance CLEAR Color YELLOW Glucose, Urine (Fma/CMC/CTX) NEG Bilirubin NEG Ketones NEG SP Grav 1.015 Blood NEG PH 7.5 Protein NEG Urobil 0.2 Nitrite NEG Leukocytes (a/CMC/Centrex) NEG CBC Electronic ([facility]) 03/29/2011 WBC 4.8 3.6-9.6 RBC 4.67 3.90-5.70 Hemoglobin (Fma/CMC/CTX) 11.7 g/dL Low 12.1 - 17.2 Hematocrit (Fma/CMC/CTX) 36.2 % 36.1 - 50.3 Platelets 211 10^3/ul 150-400 Lymph% 16.6 Low 20.5-51.1 Mixed% 3.7 Neutrophils % 79.7 Mean Corpuscular Vol 77 Low 82.2-97.4 Mean Corpuscular Hemoglobin 25.0 Low 27.6-33.3 Mean Corpuscular Hemo Concen 32.3 32.0-36.0 RDW 14.5 High 11.6-13.7 Mean Platelet Volume 7.8 6.5-11.0 Laboratory test finding 03/29/2011 TSH 1.92 mIU/L 0.50-6.00 Ferritin 5 ng/mL Low 22-415 28 Lipid Profile 03/29/2011 Cholesterol 232 mg/dL High 120-200 29 HDL 66 mg/dL 30-70 Triglycerides 86 mg/dL 30-200 HDL Risk Factor 3.5 CALC 0.0-4.0 LDL (Calculated) 149 CALC High 0-129 VLDL (Calculated) 17 mg/dL 0-50 Lyme Igg/M W/RFX [place] 03/08/2011 Lyme IgG/IgM Ab <0.91 index 0.00-0.90 30 Lyme Disease Ab, Quant, IgM <0.91 index 0.00-0.90 31 Babesia Microti AB PNL 03/08/2011 Babesia microti IgM <1:10 Neg:<1:10 Babesia microti IgG <1:10 Neg:<1:10 32 CBC Electronic ([facility]) 03/08/2011 WBC 6.6 3.6-9.6 RBC 4.95 3.90-5.70 Hemoglobin (Fma/CMC/CTX) 12.4 g/dL 12.1 - 17.2 Hematocrit (Fma/CMC/CTX) 39.5 % 36.1 - 50.3 Platelets 236 10^3/ul 150-400 Lymph% 23.8 20.5-51.1 Mixed% 13.1 Neutrophils % 63.1 Mean Corpuscular Vol 79.8 Low 82.2-97.4 Mean Corpuscular Hemoglobin 25.1 Low 27.6-33.3 Mean Corpuscular Hemo Concen 31.4 Low 32.0-36.0 RDW 15.2 High 11.6-13.7 Mean Platelet Volume 10.2 6.5-11.0 Laboratory test finding 11/20/2010 PSA,Diagnostic 2.14 NG/ML 0-4 33 Laboratory test finding 03/23/2010 TSH 1.34 mIU/L 0.50-6.00 B12 497 pg/mL 230-1050 Lipid Profile 03/23/2010 Cholesterol 214 mg/dL High 120-200 HDL 55 mg/dL 30-70 Triglycerides 73 mg/dL 30-200 HDL Risk Factor 3.9 CALC Low 4.2-7.0 LDL (Calculated) 144 CALC High 0-129 VLDL (Calculated) 15 mg/dL 0-50 Basic Metabolic Profile 03/23/2010 BUN 18 mg/dL 6-26 Calcium 9.7 mg/dL 8.6-10.2 Chloride 98 mEq/L 94-112 Creatinine 0.9 mg/dL 0.6-1.4 Carbon Dioxide 28 mEq/L 21-32 Glucose 95 mg/dL 70-105 Sodium 140 mEq/L 134-149 Potassium 4.0 mEq/L 3.6-5.5 BUN/Creat Ratio 18.6 Calc 8.0-36.0 CBC (a) 03/23/2010 WBC 5.3 3.6-9.6 RBC 4.74 3.90-5.70 Hemoglobin (Fma/CMC/CTX) 13.5 g/dL 12.1 - 17.2 Hematocrit (Fma/CMC/CTX) 41.9 % 36.1 - 50.3 Mean Corpuscular Vol 88.4 82.2-97.4 Mean Corpuscular Hemaglobin 28.5 27.6-33.3 Mean Corpuscular Hemo Concen 32.2 Low 33.0-36.0 Platelets 222 10^3/ul 150-400 Lymph% 18.8 Low 20.5-51.1 Mixed% 7.9 Neutrophils % 73.3 RDW 12.7 11.6-13.7 Mean Platelet Volume 11.0 High 7.4-10.4 Laboratory test finding 03/23/2010 Vitamin D, 25 Oh 23.2 ng/mL Low 32.0- 100.0 34 Laboratory test finding 02/10/2010 PSA,Diagnostic 1.59 NG/ML 0-4 35 1 [id number] 2 SEE RESULT BELOW Name: CHRIS IVAN : [address]: Salbador Albrecht MD Acct: [id number] Unit: [id number] AGE: 68 Location: [facility] Re02/14/18 SEX: M Status: REG REF SPEC: [id number] FLO: 02/14/18- [facility] DR: Salbador Albrecht MD REQ: [id number] RECD: 02/14/18 STATUS: JUSTIN GAYLE DR: Nirali Johnson MD _ ORDERED: S PATH PROST BX/4 COMMENTS: [id number] FINAL DIAGNOSIS 1. Prostate, left apex, core biopsies: -- Benign prostate tissue. -- No evidence of neoplasia identified. 2. Prostate, left base, core biopsy: -- Benign prostate tissue. -- No evidence of neoplasia identified. 3. Prostate, right apex, core biopsies: -- Benign prostate tissue. -- No evidence of neoplasia identified. 4. Prostate, right base, core biopsy: -- Benign prostate tissue. -- No evidence of neoplasia identified. PRE-OPERATIVE DIAGNOSIS Elevated PSA POST-OPERATIVE DIAGNOSIS PSA=7.8 CONTINUED ON NEXT PAGE DEPARTMENT OF PATHOLOGY, [address] [place] [address] Lucas Cardozo M.D. Director [facility] # [id number] RUN DATE: 02/15/18 [facility] LAB LIVE PAGE 2 Patient: CHRIS IVAN [id number] (Continued) GROSS DESCRIPTION (Continued) GROSS DESCRIPTION 1. The specimen is received in formalin labeled, Left Prostate Lobe Neola, and consists of three abreu-pink fragmented soft tissue cores ranging from 0.3 x 0.1 cm to 1.3 x 0.1 cm which are submitted entirely in one cassette. 2. The specimen is received in formalin labeled, Left Prostate Lobe Base, and consists of three abreu-pink fragmented soft tissue cores ranging from 0.3 x 0.1 cm to 1.4 x 0.1 cm which are submitted entirely in one cassette. 3. The specimen is received in formalin labeled, Right Prostate Lobe Neola, and consists of three abreu-pink soft tissue cores averaging 1.3 x 0.1 cm which are submitted entirely in one cassette. 4. The specimen is received in formalin labeled, Right Prostate Lobe Base, and consists of three abreu-pink fragmented soft tissue cores ranging from 0.4 x 0.1 cm to 1.4 x 0.1 cm which are submitted entirely in one cassette. Signed by and Reported on: Lucas Cardozo MD 02/25 1127 END OF REPORT DEPARTMENT OF PATHOLOGY, [address] [place] [address] Lucas Cardozo M.D. Director [facility] # [id number] 3 Serum levels of PSA measured using the [employer] DXI Hybritech immunoassay should not be interpreted as absolute evidence of the presence or absence of disease. The PSA value should be used in conjunction with other pertinent clinical diagnostic procedures. The values obtained with different assay methods or kits cannot be used interchangeably. 4 Serum levels of PSA measured using the [employer] DXI Hybritech immunoassay should not be interpreted as absolute evidence of the presence or absence of disease. The PSA value should be used in conjunction with other pertinent clinical diagnostic procedures. The values obtained with different assay methods or kits cannot be used interchangeably. 5 Serum levels of PSA measured using the [employer] DXI Hybritech immunoassay should not be interpreted as absolute evidence of the presence or absence of disease. The PSA value should be used in conjunction with other pertinent clinical diagnostic procedures. The values obtained with different assay methods or kits cannot be used interchangeably. 6 Because ethnic data is not always readily available, this report includes an eGFR for both -Americans and non- Americans. The National Kidney Disease Education Program (NKDEP) does not endorse the use of the MDRD equation for patients that are not between the ages of 18 and 70, are , have extremes of body size, muscle mass, or nutritional status, or are non- or non-. According to the National Kidney Foundation, irrespective of diagnosis, the stage of the disease is based on the level of kidney function: Stage Description GFR(mL/min/1.73 m(2)) 1 Kidney damage with normal or decreased GFR 90 2 Kidney damage with mild decrease in GFR 60-89 3 Moderate decrease in GFR 30-59 4 Severe decrease in GFR 15-29 5 Kidney failure <15 (or dialysis) 7 Please note: The following may produce a false positive D Dimer test: - Rheumatoid factor greater than 60 IU/ml - Plasma hemoglobin greater than 0.05 gm/dl - Bilirubin greater than 50 mg/dl - Lipids greater than 1000 mg/dl - FDP greater than 20 ug/ml 8 [place] Severe Sepsis and Septic Shock Management Bundle Measure requires all lactic acids initially measuring >2.0 mmol/L be repeated. 9 Because ethnic data is not always readily available, this report includes an eGFR for both -Americans and non- Americans. The National Kidney Disease Education Program (NKDEP) does not endorse the use of the MDRD equation for patients that are not between the ages of 18 and 70, are , have extremes of body size, muscle mass, or nutritional status, or are non- or non-. According to the National Kidney Foundation, irrespective of diagnosis, the stage of the disease is based on the level of kidney function: Stage Description GFR(mL/min/1.73 m(2)) 1 Kidney damage with normal or decreased GFR 90 2 Kidney damage with mild decrease in GFR 60-89 3 Moderate decrease in GFR 30-59 4 Severe decrease in GFR 15-29 5 Kidney failure <15 (or dialysis) 10 Please note: The following may produce a false positive D Dimer test: - Rheumatoid factor greater than 60 IU/ml - Plasma hemoglobin greater than 0.05 gm/dl - Bilirubin greater than 50 mg/dl - Lipids greater than 1000 mg/dl - FDP greater than 20 ug/ml 11 Serum levels of PSA measured using the Tamar Arianna DXI Hybritech immunoassay should not be interpreted as absolute evidence of the presence or absence of disease. The PSA value should be used in conjunction with other pertinent clinical diagnostic procedures. The values obtained with different assay methods or kits cannot be used interchangeably. 12 1 SST 13 Adult male reference interval is based on a population of lean males up to 40 years old. 14 FASTING 15 RESULTS VERIFIED BY REPEAT ANALYSIS 16 RESULTS VERIFIED BY REPEAT ANALYSIS 17 RESULTS VERIFIED BY REPEAT ANALYSIS 18 Because ethnic data is not always readily available, this report includes an eGFR for both -Americans and non- Americans. The National Kidney Disease Education Program (NKDEP) does not endorse the use of the MDRD equation for patients that are not between the ages of 18 and 70, are , have extremes of body size, muscle mass, or nutritional status, or are non- or non-. According to the National Kidney Foundation, irrespective of diagnosis, the stage of the disease is based on the level of kidney function: Stage Description GFR(mL/min/1.73 m(2)) 1 Kidney damage with normal or decreased GFR 90 2 Kidney damage with mild decrease in GFR 60-89 3 Moderate decrease in GFR 30-59 4 Severe decrease in GFR 15-29 5 Kidney failure <15 (or dialysis) 19 Serum levels of PSA measured using the [employer] DXI Hybritech immunoassay should not be interpreted as absolute evidence of the presence or absence of disease. The PSA value should be used in conjunction with other pertinent clinical diagnostic procedures. The values obtained with different assay methods or kits cannot be used interchangeably. 20 Serum levels of PSA measured using the [employer] DXI Hybritech immunoassay should not be interpreted as absolute evidence of the presence or absence of disease. The PSA value should be used in conjunction with other pertinent clinical diagnostic procedures. The values obtained with different assay methods or kits cannot be used interchangeably. 21 Because ethnic data is not always readily available, this report includes an eGFR for both -Americans and non- Americans. The National Kidney Disease Education Program (NKDEP) does not endorse the use of the MDRD equation for patients that are not between the ages of 18 and 70, are , have extremes of body size, muscle mass, or nutritional status, or are non- or non-. According to the National Kidney Foundation, irrespective of diagnosis, the stage of the disease is based on the level of kidney function: Stage Description GFR(mL/min/1.73 m(2)) 1 Kidney damage with normal or decreased GFR 90 2 Kidney damage with mild decrease in GFR 60-89 3 Moderate decrease in GFR 30-59 4 Severe decrease in GFR 15-29 5 Kidney failure <15 (or dialysis) 22 RESULTS VERIFIED BY REPEAT ANALYSIS 23 FASTING 24 Because ethnic data is not always readily available, this report includes an eGFR for both -Americans and non- Americans. The National Kidney Disease Education Program (NKDEP) does not endorse the use of the MDRD equation for patients that are not between the ages of 18 and 70, are , have extremes of body size, muscle mass, or nutritional status, or are non- or non-. According to the National Kidney Foundation, irrespective of diagnosis, the stage of the disease is based on the level of kidney function: Stage Description GFR(mL/min/1.73 m(2)) 1 Kidney damage with normal or decreased GFR 90 2 Kidney damage with mild decrease in GFR 60-89 3 Moderate decrease in GFR 30-59 4 Severe decrease in GFR 15-29 5 Kidney failure <15 (or dialysis) 25 Effective 06/07/12, bilirubin confirmation by ictotest is discontinued. False-positive results for bilirubin may occur due to color interference from large amounts of blood in the urine, very concentrated urine, or drugs that discolor urine such as phenazopyridine(Pyridium). 26 RUN DATE: 07/11/12 [facility] LAB LIVE PAGE 1 RUN TIME: [address] [place] [address] Specimen Inquiry Name: ISRRAEL IVANKRIS Kemp : [address]: Carlos Alberto Chang MD Acct: [id number] Unit: [id number] AGE: 62 Location: ED Re07/09/12 SEX: M Status: DEP ER SPEC: [id number] FLO: 07/09/[address]: Kirit Warner MD [facility] REQ: [id number] RECD: 07/09/12 STATUS: HENRRY GAYLE DR: Nirali Barrera MD, MD _ SOURCE: URINE SPDESC: ORDERED: Urine Culture Procedure Result Verified Site Urine Culture Final 07/11/12- 951 ML Organism 1 ESCHERICHIA COLI Cantil Count >100,000 (Many) CFU/ML 1. ESCHERICHIA COLI M.I.C. RX --------- ------ Amikacin <=2 S Ampicillin 4 S * Ampicillin/Sublactam 4 S Cefazolin <=4 S Cefepime <=1 S Cefoxitin <=4 S Ceftazidime <=1 S Ceftriaxone <=1 S Ciprofloxacin <=0.25 S Gentamicin <=1 S Imipenem <=1 S Levofloxacin <=0.12 S Nitrofurantoin 32 S Piperacillin <=4 S Tigecycline <=0.5 S Trimethoprim/Sulfamethoxazole <=20 S * These antibiotics are not available in the [facility] Formulary Contact the Microbiology Department for any additional antibiotic reporting. END OF REPORT * ML=Testing performed at Main Lab DEPARTMENT OF PATHOLOGY, [address] [place] [address] Lucas Cardozo M.D. Director [facility] Permit #[id number] 27 * SERUM LEVELS OF PSA MEASURED USING THE ATMAR Ztory ACCESS HYBRITECH IMMUNOASSAY SHOULD NOT BE INTERPRETED ABSOLUTE EVIDENCE OF THE PRESENCE OR ABSENCE OF DISEASE. THE PSA VALUE SHOULD BE USED IN CONJUNCTION WITH OTHER PERTINENT CLINICAL DIAGNOSTIC PROCEDURES. The values obtained with different assay methods or kits cannot be used interchangeably. 28 RESULTS MICHAEL'D 29 RESULT MICHAEL'D 30 Negative <0.91 Equivocal 0.91 - 1.09 Positive >1.09 Note: The [facility] currently advises that Western blot testing be performed following all equivocal or positive EIA results. Final diagnosis should include appropriate clinical findings and a positive EIA which is also positive by Western blot. 31 Negative <0.91 Equivocal 0.91 - 1.09 Positive >1.09 . Note: IgM levels may peak at 3-6 weeks post infection, then gradually decline. FDA currently advises that Western Blot testing be performed following all equivocal or positive EIA results. Final diagnosis should include appropriate clinical findings and a positive EIA which is also positive by Western Blot. 32 . This test was developed and its performance characteristics determined by [employer]. It has not been cleared or approved by the U.S. Food and Drug Administration. The FDA has determined that such clearance or approval is not necessary. This test is used for clinical purposes. It should not be regarded as investigational or research. 33 * SERUM LEVELS OF PSA MEASURED USING THE TAMAR ARIANNA ACCESS HYBRITECH IMMUNOASSAY SHOULD NOT BE INTERPRETED ABSOLUTE EVIDENCE OF THE PRESENCE OR ABSENCE OF DISEASE. THE PSA VALUE SHOULD BE USED IN CONJUNCTION WITH OTHER PERTINENT CLINICAL DIAGNOSTIC PROCEDURES. 34 Recent studies consider the lower limit of 32.0 ng/mL to be a threshold for optimal health. Isaias GIPSON. J Nutr. 2004;135(2):317-22. 35 * SERUM LEVELS OF PSA MEASURED USING THE TAMAR Ztory ACCESS HYBRITECH IMMUNOASSAY SHOULD NOT BE INTERPRETED ABSOLUTE EVIDENCE OF THE PRESENCE OR ABSENCE OF DISEASE. THE PSA VALUE SHOULD BE USED IN CONJUNCTION WITH OTHER PERTINENT CLINICAL DIAGNOSTIC PROCEDURES. Procedures Date CPT Code Description Status 10/05/2016 48508 [facility] Completed 11/26/2015 Colonoscopy Completed 10/02/2015 12979 [facility] Completed 10/02/2015 53520 Vision Test- screening test of visual acuity, Completed nasima collier 09/19/2014 32070 [facility] Completed 03/29/2011 46453 Vision Test- screening test of visual acuity, Completed quantitative, bila 06/15/2010 29977 Inject, Tendon Origin/Insertion Completed Encounters Type Date Location Provider CPT E/M Dx Office Visit 07/06/2017 10:40a Main Office Nirali Johnson, 01471 G47.09 M.DKhushbu Office Visit 10/05/2016 2:00p [facility] Nirali Johnosn, 17232 Z00.00 M.DKhushbu R73.01 E55.9 Office Visit 03/29/2016 11:30a [place] [address] J02.9 J30.9 Office Visit 02/26/2016 11:30a [facility] Selene Juarez-C 57826 H02.816 J30.9 Office Visit 01/22/2016 9:30a [place] [address] H68.012 H60.8x2 Office Visit 12/11/2015 2:45p [facility] Selene Juarez-C 76759 M25.512 Office Visit 10/23/2015 1:20p [facility] Nirali Johnson M.D. 80586 E55.9 R73.01 Office Visit 10/02/2015 1:00p [facility] Office Nirali Johnson M.D. 99154 Z00.01 L21.8 R68.82 E55.9 D50.8 Z23 Office Visit 09/19/2014 2:00p [facility] Office Nirali Johnson M.D. 61350 V70.0 780.52 296.99 719.47 274.9 955.6 268.9 307.49 Office Visit 08/30/2014 11:15a [facility] [place] [address] 719.44 E920.3 Office Visit 09/20/2013 9:00a [facility] Office Nirali Johnson M.D. 49026 V70.0 780.52 268.9 Office Visit 07/24/2013 3:20p Main Office Nirali Johnson M.D. 13239 780.52 719.47 V70.0 Office Visit 01/05/2013 3:30p [facility] Office Nirali Johnson M.D. 36909 780.52 296.99 V70.0 268.9 Office Visit 11/28/2012 11:30a [facility] Maria Luisa Govea, COLLATOR HAND 30801 466.0 Office Visit 01/25/2012 3:00p Main Office Selene Juarez-C 09703 989.5 E905.3 Office Visit 03/29/2011 9:00a [facility] Sugar Gonzalez M.D. 02412 V70.0 780.79 281.9 268.9 311 V72.0 Office Visit 03/08/2011 5:40p Main Office Nirali Johnson M.D. 59813 782.1 995.3 Office Visit 06/29/2010 2:20p [facility] Sugar Gonzalez M.D. 03142 726.32 Office Visit 06/15/2010 9:40a [facility] Office Sugar Gonzalez M.D. 37344 726.32 Office Visit 05/05/2010 9:40a Main Office Sugar Gonzalez M.D. 18181 726.32 Office Visit 03/23/2010 9:00a [facility] Sugar Gonzalez M.D. 37829 311 V70.0 V17.49 Office Visit 07/07/2009 1:30p [facility] Office Sugar Gonzalez M.D. 61597 311 V65.49 009.1 281.9 780.52 Plan of Care 05/03/2018 - Nirali Johnson M.D.I20.9 Angina pectoris, unspecifiedNew Medication:Aspirin Ec Low Dose 81 mgComments:will get a stress test as soon as possible. and a referral to cardiologystart a coated baby aspirin.go to the ER if you develop the symptoms again.AllComments:~B_~U_Medication Management~b_~ u_ Patient Understands medications he's taking? Yes No Are there Barriers to Adherence? Yes No Has the patient been asked about herbal supplements and therapies, and OTC meds? Yes No
[2018-05-14 22:05] LABS: ABS Basophils 0 10^3/ul (0-0.2); ABS Eosinophils 0.4 10^3/ul (0-0.6); ABS Monocytes 0.7 10^3/ul (0-0.8); ABS Neutrophils 3.6 10^3/ul (1.5-7.7); ABS Nucleated RBC 0 10^3/ul; Eosinophil % 6.1 % (0-6); Hematocrit 42 % (42-52); Hemoglobin 14.4 g/dl (14.0-18.0); Lymphocyte % 17.8 % (25-47); Mean Corpuscular HGB Conc 34 g/dl (31-36); Mean Corpuscular Hemoglobin 30 pg (27-31); Mean Corpuscular Volume 87 fL (80-94); Mean Platelet Volume 7.7 fL (7.4-10.4); Nucleated Red Blood Cells % 0.1; Platelet Count 218 10^3/ul (150-450); Red Blood Count 4.84 10^6/ul (4.00-5.40); Red Cell Distribution Width 13 % (10.5-15); White Blood Count 5.8 10^3/ul (3.5-10.8)
[2018-05-14 22:25] LABS: EGFR Non-African American 81.8 (>60)
[2018-05-14 22:36] LABS: INR 0.95 (0.77-1.02)
[2018-05-14] MEDS ORDERED: Aspirin TAB* 325 MG PO ONE (22:37)
--- NOTE | 2018-05-14 23:08 | ED ---
HPI Chest Pain - HPI Summary HPI Summary: Patient complains of exertional CP, SOB starting 04/22/18 has recently progressed to at intermittent CP and SOB at rest. No active CP or SOB here in the ED. CP described as sternal, radiating towards left shoulder, worse with exertion, improves with rest. No prior cardiac history. Patient states he wrecked exercises regularly with significant decrease in endurance recently. Denies fever, cough, sore throat, N/V/D, abdominal pain, change in urine, change in BM. Medical history is none. Cardiac risk factor is positive family history, mother at age 54 from [place]. Nonsmoker. - History of Current Complaint Chief Complaint: EDChestPainROMI Time Seen by Provider: 05/14/18 21:11 Hx Obtained From: Patient Onset/Duration: Started Days Ago Timing: Intermittent Pain Intensity: 0 Pain Scale Used: 0-10 Numeric Chest Pain Location: Mid Sternal Chest Pain Radiates: Yes Chest Pain Radiates To:: Shoulder Character: Pressure/Squeezing Aggravating Factor(s): Exertion Alleviating Factor(s): Rest Associated Signs and Symptoms: Positive: Chest Pain, Shortness of Breath - Allergy/Home Medications Allergies/Adverse Reactions: Allergies Allergy/AdvReac Type Severity Reaction Status Date / Time No Known Allergies Allergy Verified 05/14/18 21:16 Home Medications: Home Medications Aspirin 81 mg CHEW TAB* [Aspirin Low Dose TAB*] 81 mg PO DAILY 05/14/18 [ History Confirmed 05/14/18] traZODone TAB* [Desyrel TAB*] 75 mg PO BEDTIME PRN 05/14/18 [History Confirmed 05/14/18] PMH/Surg Hx/FS Hx/Imm Hx Endocrine/Hematology History: Reports: Hx Anemia - HX OF- CURRENTLY TAKING IRON SAW DR. MORTON IN THE PAST FOR Denies: Hx Anticoagulant Therapy, Hx Diabetes, Hx Thyroid Disease Cardiovascular History: Denies: Hx Congestive Heart Failure, Hx Deep Vein Thrombosis, Hx Hypertension , Hx Myocardial Infarction, Hx Pacemaker/ICD Respiratory History: Reports: Hx Sleep Apnea - STATES NO TREATMENT- STATES IS BORDERLINE Denies: Hx Asthma, Hx Chronic Obstructive Pulmonary Disease (COPD), Hx Lung Cancer, Hx Pneumonia, Hx Pulmonary Embolism GI History: Denies: Hx Gall Bladder Disease, Hx Gastrointestinal Bleed, Hx Ulcer, Hx Urosepsis History: Reports: Other Problems/Disorders - HX OF BLADDER INFECTIONS- LAST 2-3 YRS AGO-SEES DR. MOLINA Q 6 MONTHS Denies: Hx Kidney Stones, Hx Renal Disease Musculoskeletal History: Reports: Hx Arthritis - RIGHT SHOULDER, Hx Tendonitis - HX OF - BILATERAL SHOULDERS AND HANDS IN THE PAST// CURRENT LEFT WRIST POSS Denies: Hx Rheumatoid Arthritis, Hx Osteoporosis Sensory History: Reports: Hx Cataracts - BILATERAL, Hx Contacts or Glasses - GLASSES Denies: Hx Hearing Aid Opthamlomology History: Reports: Hx Cataracts - BILATERAL, Hx Contacts or Glasses - GLASSES Neurological History: Reports: Hx Headaches - HX OF 20 YEARS AGO Denies: Hx Dementia, Hx Migraine, Hx Seizures, Hx Transient Ischemic Attacks (TIA) Psychiatric History: Reports: Hx Anxiety - HX OF OCCASIONALLY- STATES NONE RECENTLY, Hx Depression - HX OF IN THE PAST PER PATIENT Denies: Hx Panic Disorder, Hx Schizophrenia, Hx Bipolar Disorder - Cancer History Cancer Type, 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 1999- ARTHROSCOPIC - Lt ANKLE. 1964 & PILONIDAL CYST REMOVED. 12/2013 ARTHROSCOPIC LEFT ANKLE. 2018 ankle surgery Hx Anesthesia Reactions: No Infectious Disease History: No Infectious Disease History: Reports: Hx Shingles, Traveled Outside the [place] in Last 30 Days Denies: Hx Clostridium Difficile, Hx Hepatitis, Hx Human Immunodeficiency Virus (HIV), Hx of Known/Suspected MRSA, Hx Tuberculosis, Hx Known/Suspected VRE , Hx Known/Suspected VRSA, History Other Infectious Disease - Family History Known Family History: Positive: None - Pt denies FMHX Negative: Cardiac Disease, Hypertension, Diabetes - Social History Alcohol Use: Weekly Alcohol Amount: 6 weekly-BEER Substance Use Type: Reports: None Hx Tobacco Use: No Smoking Status (MU): Never Smoked Tobacco Review of Systems Constitutional: Negative Eyes: Negative ENT: Negative Positive: Chest Pain Positive: Shortness Of Breath Gastrointestinal: Negative Genitourinary: Negative Musculoskeletal: Negative Skin: Negative Neurological: Negative Psychological: Normal All Other Systems Reviewed And Are Negative: Yes Physical Exam Triage Information Reviewed: Yes Vital Signs On Initial Exam: Initial Vitals Temp Pulse Resp BP Pulse Ox 97.5 F 71 20 164/90 95 05/14/18 20:40 05/14/18 20:40 05/14/18 20:40 05/14/18 20:40 05/14/18 20:40 Vital Signs Reviewed: Yes Appearance: Positive: Well-Appearing Skin: Positive: Warm Head/Face: Positive: Normal Head/Face Inspection Eyes: Positive: Normal Neck: Positive: Supple Respiratory/Lung Sounds: Positive: Clear to Auscultation Cardiovascular: Positive: Normal Abdomen Description: Positive: Nontender Musculoskeletal: Positive: Normal Neurological: Positive: Normal Psychiatric: Positive: Normal AVPU Assessment: Alert - Kerry Coma Scale Best Eye Response: 4 - Spontaneous Best Motor Response: 6 - Obeys Commands Best Verbal Response: 5 - Oriented Coma Scale Total: 15 Diagnostics - Vital Signs Vital Signs Temp Pulse Resp BP Pulse Ox 05/14/18 22:35 57 14 128/79 96 05/14/18 22:05 58 19 127/78 97 05/14/18 22:00 66 17 96 05/14/18 21:36 64 20 136/86 93 05/14/18 21:05 63 17 140/83 95 05/14/18 21:04 69 14 96 05/14/18 20:40 97.5 F 71 20 164/90 95 - Laboratory Lab Results: Lab Results 05/14/18 05/14/18 05/14/18 Range/Units 21:51 21:52 21:52 WBC 5.8 (3.5-10.8) 10^3/ul RBC 4.84 (4.00-5.40) 10^6/ul Hgb 14.4 (14.0-18.0) g/dl Hct 42 (42-52) % MCV 87 (80-94) fL MCH 30 (27-31) pg MCHC 34 (31-36) g/dl RDW 13 (10.5-15) % Plt Count 218 (150-450) 10^3/ul MPV 7.7 (7.4-10.4) fL Neut % (Auto) 62.8 (38-83) % Lymph % (Auto) 17.8 L (25-47) % Mckean % (Auto) 12.5 H (0-7) % Eos % (Auto) 6.1 H (0-6) % Baso % (Auto) 0.8 (0-2) % Absolute Neuts (auto) 3.6 (1.5-7.7) 10^3/ul Absolute Lymphs (auto) 1.0 (1.0-4.8) 10^3/ul Absolute Monos (auto) 0.7 (0-0.8) 10^3/ul Absolute Eos (auto) 0.4 (0-0.6) 10^3/ul Absolute Basos (auto) 0 (0-0.2) 10^3/ul Absolute Nucleated RBC 0 10^3/ul Nucleated RBC % 0.1 INR (Anticoag Therapy) 0.95 (0.77-1.02) Sodium 137 (135-145) mmol/L Potassium 3.8 (3.5-5.0) mmol/L Chloride 103 (101-111) mmol/L Carbon Dioxide 29 (22-32) mmol/L Anion Gap 5 (2-11) mmol/L BUN 20 (6-24) mg/dL Creatinine 0.92 (0.67-1.17) mg/dL Est GFR ( Amer) 99.0 (>60) Est GFR (Non-Af Amer) 81.8 (>60) BUN/Creatinine Ratio 21.7 H (8-20) Glucose 97 (70-100) mg/dL Calcium 9.2 (8.6-10.3) mg/dL Total Bilirubin 0.40 (0.2-1.0) mg/dL AST 16 (13-39) U/L ALT 13 (7-52) U/L Alkaline Phosphatase 49 (34-104) U/L Troponin I 0.01 (<0.04) ng/mL C-Reactive Protein 1.69 (<8.01) mg/L Total Protein 6.3 L (6.4-8.9) g/dL Albumin 4.1 (3.2-5.2) g/dL Globulin 2.2 (2-4) g/dL Albumin/Globulin Ratio 1.9 (1-3) Result Diagrams: 05/14/18 21:52 05/14/18 21:51 Lab Statement: Any lab studies that have been ordered have been reviewed, and results considered in the medical decision making process. - EKG 1 Cardiac Rate: NL EKG Rhythm: Sinus Rhythm ST Segment: Non-Specific Ectopy: None EKG Comparison: Other - T-wave inversion V2, V3 Chest Pain Course/Dx - Course Course Of Treatment: Patient complains of exertional CP, SOB starting 04/22/18 has recently progressed to at intermittent CP and SOB at rest. No active CP or SOB here in the ED. CP described as sternal, radiating towards left shoulder, worse with exertion, improves with rest. No prior cardiac history. Patient states he wrecked exercises regularly with significant decrease in endurance recently. Denies fever, cough, sore throat, N/V/D, abdominal pain, change in urine, change in BM. Medical history is none. Cardiac risk factor is positive family history, mother at age 54 from [place]. Nonsmoker. Physical exam unremarkable. Vital signs within normal limits. Labs unremarkable. Chest x- ray unremarkable. EKG shows new T-wave inversion in leads V2, V3. Patient admitted to hospitalist for stress test. - Diagnoses Provider Diagnoses: Unstable angina Discharge - Sign-Out/Discharge Documenting (check all that apply): Patient Departure - Discharge Plan Condition: Stable Disposition: ADMITTED TO [facility] - Billing Disposition and Condition Condition: STABLE Disposition: Admitted to [facility]
--- NOTE | 2018-05-14 23:34 | ADMNOTE ---
Subjective Date of Service: 05/14/18 Interval History: code status full this is admission h/p hpi this is a 68 yr old wm with no sig phx except family hx of cad ( mom at age 54 due to cad ) was sent by pcp to er due to chest pain with sob. since . pt described his chest pain is sharp type lasts few sec from midline chest ( at level of t2 ) to the left shoulder, rest will make it better but nothing makes it worse. at times he would experience similar pain from the left forearm to his left wrist. this type of pain has been associated with sob. he decided to go to pcp but was scheduled to see cardio next . he has recurrent chest pain today and contact pcp ---> sent to er afterwards initial ekg showed small flipped t wave from v1-v3 and trop were neg pt got one dose of asa 325 from er and will be written for 81 mg daily while waiting for stress test in am PT IS CHEST PAIN FREE WHEN EVAL BY ER DR AND BY THIS WRITTER phx family hx of cad mom at age 54 hyperlipidemia hx of vit d def insominia pshx s/p left ankle due to bone spur initially followed by cartilage repair three times afterwards social no cig 2-3 beers on the weekends no ivda walks indep fhx mom at age 54 due to cad Family History: Findings - mom+ cad Social History: Findings - no cig 2-3 beers daily no ivda Past Medical History: Findings - as above Review of Systems - Measurements Intake and Output: Intake and Output Last 24 Hours 05/12/18 05/13/18 05/14/18 05/15/18 07:59 07:59 06:59 06:59 Weight 170 lb - Review of Systems General Comments: pertinent as per hpi Objective Active Medications: Aspirin (Ecotrin Ec Tab*) 81 mg PO ED ONCE ONE Stop: 05/15/18 08:01 Vital Signs - 8 hr 05/14/18 05/14/18 05/14/18 20:40 21:04 21:05 Temperature 97.5 F Pulse Rate 71 69 63 Respiratory 20 14 17 Rate Blood Pressure 164/90 140/83 (mmHg) O2 Sat by Pulse 95 96 95 Oximetry 05/14/18 05/14/18 05/14/18 21:36 22:00 22:05 Temperature Pulse Rate 64 66 58 Respiratory 20 17 19 Rate Blood Pressure 136/86 127/78 (mmHg) O2 Sat by Pulse 93 96 97 Oximetry 05/14/18 22:35 Temperature Pulse Rate 57 Respiratory 14 Rate Blood Pressure 128/79 (mmHg) O2 Sat by Pulse 96 Oximetry Oxygen Devices in Use Now: None Appearance: nad Eyes: No Scleral Icterus, PERRLA Ears/Nose/Mouth/Throat: NL Teeth, Lips, Gums, Clear Oropharnyx, Mucous Membranes Moist Neck: NL Appearance and Movements; NL JVP, Trachea Midline, No Thyroid Enlargement, Masses Respiratory: Symmetrical Chest Expansion and Respiratory Effort, Clear to Auscultation Cardiovascular: NL Sounds; No Murmurs; No JVD, RRR, No Edema Abdominal: NL Sounds; No Tenderness; No Distention Extremities: No Edema, - - full range of motion seen in all four exts Skin: No Rash or Ulcers Neurological: Alert and Oriented x 3, NL Sensation, NL Muscle Strength and Tone Result Diagrams: 05/15/18 05:40 05/15/18 05:40 Additional Lab and Data: Lab Results 05/14/18 05/14/18 05/14/18 Range/Units 21:51 21:52 21:52 WBC 5.8 (3.5-10.8) 10^3/ul RBC 4.84 (4.00-5.40) 10^6/ul Hgb 14.4 (14.0-18.0) g/dl Hct 42 (42-52) % MCV 87 (80-94) fL MCH 30 (27-31) pg MCHC 34 (31-36) g/dl RDW 13 (10.5-15) % Plt Count 218 (150-450) 10^3/ul MPV 7.7 (7.4-10.4) fL Neut % (Auto) 62.8 (38-83) % Lymph % (Auto) 17.8 L (25-47) % Woodward % (Auto) 12.5 H (0-7) % Eos % (Auto) 6.1 H (0-6) % Baso % (Auto) 0.8 (0-2) % Absolute Neuts (auto) 3.6 (1.5-7.7) 10^3/ul Absolute Lymphs (auto) 1.0 (1.0-4.8) 10^3/ul Absolute Monos (auto) 0.7 (0-0.8) 10^3/ul Absolute Eos (auto) 0.4 (0-0.6) 10^3/ul Absolute Basos (auto) 0 (0-0.2) 10^3/ul Absolute Nucleated RBC 0 10^3/ul Nucleated RBC % 0.1 INR (Anticoag Therapy) 0.95 (0.77-1.02) Sodium 137 (135-145) mmol/L Potassium 3.8 (3.5-5.0) mmol/L Chloride 103 (101-111) mmol/L Carbon Dioxide 29 (22-32) mmol/L Anion Gap 5 (2-11) mmol/L BUN 20 (6-24) mg/dL Creatinine 0.92 (0.67-1.17) mg/dL Est GFR ( Amer) 99.0 (>60) Est GFR (Non-Af Amer) 81.8 (>60) BUN/Creatinine Ratio 21.7 H (8-20) Glucose 97 (70-100) mg/dL Calcium 9.2 (8.6-10.3) mg/dL Total Bilirubin 0.40 (0.2-1.0) mg/dL AST 16 (13-39) U/L ALT 13 (7-52) U/L Alkaline Phosphatase 49 (34-104) U/L Troponin I 0.01 (<0.04) ng/mL C-Reactive Protein 1.69 (<8.01) mg/L Total Protein 6.3 L (6.4-8.9) g/dL Albumin 4.1 (3.2-5.2) g/dL Globulin 2.2 (2-4) g/dL Albumin/Globulin Ratio 1.9 (1-3) EKG Data: ekg ns small flipped t wave seen from v1 to v3 no prior ekg to compare to Assess/Plan/Problems-Billing Assessment: this is a 68 yr old wm with no sig hx despite of + family hx of cad ( mom at age 54 due to cad ) was sent in by pcp due to chest pain. he could not wait until cardiac eval next thurs - Patient Problems (1) Chest pain Status: Acute Code(s): R07.9 - CHEST PAIN, UNSPECIFIED SNOMED Code(s): 09287486 Comment: tele with mimi ekg scheduled at 6 am asa prn nitro checking fasting lipid stress vs cardio eval in am (2) BPH (benign prostatic hyperplasia) Status: Acute Code(s): N40.0 - BENIGN PROSTATIC HYPERPLASIA WITHOUT LOWER URINRY TRACT SYMP SNOMED Code(s): 345930374 (3) Vitamin D deficiency Status: Acute Code(s): E55.9 - VITAMIN D DEFICIENCY, UNSPECIFIED SNOMED Code (s): 40093329 Comment: continue supplement (4) Insomnia Status: Acute Code(s): G47.00 - INSOMNIA, UNSPECIFIED SNOMED Code(s): 858668637 Comment: trazadone
[2018-05-15] MEDS ORDERED: traZODone TAB* 50 MG TAB PO PRN (00:33)
[2018-05-15 05:55] LABS: ABS Basophils 0 10^3/ul (0-0.2); ABS Eosinophils 0.3 10^3/ul (0-0.6); ABS Monocytes 0.6 10^3/ul (0-0.8); ABS Neutrophils 2.9 10^3/ul (1.5-7.7); ABS Nucleated RBC 0 10^3/ul; Eosinophil % 5.6 % (0-6); Hematocrit 39 % (42-52); Hemoglobin 13.6 g/dl (14.0-18.0); Lymphocyte % 20.3 % (25-47); Mean Corpuscular HGB Conc 35 g/dl (31-36); Mean Corpuscular Hemoglobin 30 pg (27-31); Mean Corpuscular Volume 85 fL (80-94); Mean Platelet Volume 7.6 fL (7.4-10.4); Nucleated Red Blood Cells % 0.1; Platelet Count 197 10^3/ul (150-450); Red Blood Count 4.57 10^6/ul (4.00-5.40); Red Cell Distribution Width 13 % (10.5-15); White Blood Count 4.7 10^3/ul (3.5-10.8)
[2018-05-15 06:13] LABS: EGFR Non-African American 83.9 (>60)
[2018-05-15] MEDS ORDERED: Aspirin EC TAB* 325 MG PO ONE (08:00)
[2018-05-15] MEDS ORDERED: FISH OIL PO SCH (09:00)
[2018-05-15] MEDS ORDERED: DHA PO SCH (09:00)
[2018-05-15] MEDS ORDERED: OMEGA PO SCH (09:00)
[2018-05-15] MEDS ORDERED: COENZYME Q10 PO SCH ×2 (09:00)
[2018-05-15] MEDS ORDERED: EPA PO SCH (09:00)
[2018-05-15] MEDS ORDERED: Cholecalciferol TAB* 1000 UNITS PO SCH (09:00)
[2018-05-15] MEDS ORDERED: Aspirin 81 mg CHEW TAB* 81 MG TAB.CHEW PO SCH (09:00)
--- NOTE | 2018-05-15 11:43 | PN ---
Subjective Date of Service: 05/15/18 Interval History: Pt Denies CP & SOB currently but reports since mid april he has had worsening SOB with CP that radiates to back, neck and left shoulder blade worse with exertion. He denies any recent fevers, chills, cough. No LE edema or orthopnea. Discussed the concerns of EKG changes and now recommending consult by global commodity manager. Objective Active Medications: Aspirin (Aspirin 81 Mg Chew Tab*) 81 mg PO DAILY [facility] Last Admin: 05/15/18 07:46 Dose: 81 mg Cholecalciferol (Vitamin D Tab*) 1,000 units PO DAILY [facility] Last Admin: 05/15/18 07:46 Dose: 1,000 units Coenzyme Q10 (Coenzyme Q10 (Nf)) 1 cap PO DAILY [facility] Last Admin: 05/15/18 08:26 Dose: Not Given ([place]-3/Dha/Epa/Fish Oil [Fish Oil 1 ,000 Mg Softgel] 1, 400 Mg) 1,400 mg PO QAM [facility] Last Admin: 05/15/18 07:46 Dose: Not Given Trazodone HCl (Desyrel Tab*) 75 mg PO BEDTIME PRN PRN Reason: SLEEP Vital Signs - 8 hr 05/15/18 05/15/18 05/15/18 03:47 07:19 08:00 Temperature 97.6 F 97.5 F Pulse Rate 61 68 Respiratory 16 18 18 Rate Blood Pressure 106/56 102/68 (mmHg) O2 Sat by Pulse 97 99 Oximetry Oxygen Devices in Use Now: None Appearance: well develeoped 68 yo male A+O x3 in NAD Eyes: No Scleral Icterus, PERRLA Ears/Nose/Mouth/Throat: NL Teeth, Lips, Gums, Mucous Membranes Moist Respiratory: Symmetrical Chest Expansion and Respiratory Effort, Clear to Auscultation Cardiovascular: NL Sounds; No Murmurs; No JVD, RRR, No Edema Abdominal: NL Sounds; No Tenderness; No Distention Extremities: No Edema, No Clubbing, Cyanosis Neurological: Alert and Oriented x 3, NL Muscle Strength and Tone Lines/Tubes/Other Access: Clean, Dry and Intact Peripheral IV Nutrition: - - NPO Result Diagrams: 05/15/18 05:40 05/15/18 05:40 Additional Lab and Data: Lab Results 05/14/18 05/14/18 05/14/18 Range/Units 21:51 21:52 21:52 WBC 5.8 (3.5-10.8) 10^3/ul RBC 4.84 (4.00-5.40) 10^6/ul Hgb 14.4 (14.0-18.0) g/dl Hct 42 (42-52) % MCV 87 (80-94) fL MCH 30 (27-31) pg MCHC 34 (31-36) g/dl RDW 13 (10.5-15) % Plt Count 218 (150-450) 10^3/ul MPV 7.7 (7.4-10.4) fL Neut % (Auto) 62.8 (38-83) % Lymph % (Auto) 17.8 L (25-47) % Martin % (Auto) 12.5 H (0-7) % Eos % (Auto) 6.1 H (0-6) % Baso % (Auto) 0.8 (0-2) % Absolute Neuts (auto) 3.6 (1.5-7.7) 10^3/ul Absolute Lymphs (auto) 1.0 (1.0-4.8) 10^3/ul Absolute Monos (auto) 0.7 (0-0.8) 10^3/ul Absolute Eos (auto) 0.4 (0-0.6) 10^3/ul Absolute Basos (auto) 0 (0-0.2) 10^3/ul Absolute Nucleated RBC 0 10^3/ul Nucleated RBC % 0.1 INR (Anticoag Therapy) 0.95 (0.77-1.02) Sodium 137 (135-145) mmol/L Potassium 3.8 (3.5-5.0) mmol/L Chloride 103 (101-111) mmol/L Carbon Dioxide 29 (22-32) mmol/L Anion Gap 5 (2-11) mmol/L BUN 20 (6-24) mg/dL Creatinine 0.92 (0.67-1.17) mg/dL Est GFR ( Amer) 99.0 (>60) Est GFR (Non-Af Amer) 81.8 (>60) BUN/Creatinine Ratio 21.7 H (8-20) Glucose 97 (70-100) mg/dL Calcium 9.2 (8.6-10.3) mg/dL Total Bilirubin 0.40 (0.2-1.0) mg/dL AST 16 (13-39) U/L ALT 13 (7-52) U/L Alkaline Phosphatase 49 (34-104) U/L Troponin I 0.01 (<0.04) ng/mL C-Reactive Protein 1.69 (<8.01) mg/L Total Protein 6.3 L (6.4-8.9) g/dL Albumin 4.1 (3.2-5.2) g/dL Globulin 2.2 (2-4) g/dL Albumin/Globulin Ratio 1.9 (1-3) Assess/Plan/Problems-Billing Assessment: this is a 68 yr old wm with no sig hx despite of + family hx of cad ( mom at age 54 due to cad ) was sent in by pcp due to chest pain. he could not wait until cardiac eval next thurs - Patient Problems (1) Chest pain Comment: - concern for unstable angina. EKG changes noted - no ST elevation. Concern for CAD. Director On Air Dr. Cameron in to consult. Troponins negative x4 - ASA daily (2) Elevated PSA Comment: - BPH - negative biopsy. Follows with Dr. Howard (3) Full code status (4) DVT prophylaxis Comment: HSQ Status and Disposition: OBV. Plan for cardiac cath
[2018-05-15] MEDS ORDERED: Diazepam TAB(*) 5 MG PO PRN (12:10)
[2018-05-15] MEDS ORDERED: NS 0.9% 1000 ML* 1,000 ML IV SCH ×4 (12:15→14:52)
[2018-05-15] MEDS ORDERED: Atorvastatin* 80 MG TAB PO ONE (12:30)
[2018-05-15] MEDS ORDERED: fentaNYL* 50 MCG/ML 2 ML VIAL (100 MCG VIAL) ONE (13:04)
[2018-05-15] MEDS ORDERED: Heparin(*) 1000 UNIT/ML 10 ML VIAL CATH LAB IV ONE ×2 (13:04→14:33)
[2018-05-15] MEDS ORDERED: Midazolam* 1 MG/ML 10 ML VIAL (10 MG) ONE (13:04)
[2018-05-15] MEDS ORDERED: VERAPAMIL 2.5 MG/ML 2 ML VIAL ** 5 mg/2 ml ONE (13:04)
[2018-05-15] MEDS ORDERED: Heparin 2 UNITS/ML IVPREMIX* 2,000 ML IV ONE (13:05)
[2018-05-15] MEDS ORDERED: nitroGLYCERIN DRIP* 25,000 MCG/250 ML BTL ONE (13:05)
[2018-05-15] MEDS ORDERED: Lidocaine 1% INJ* 10 MG/ML 30 ML SDV ONE (13:06)
[2018-05-15] MEDS ORDERED: Iohexol 350 (CONTRAST) 200 ML MDV IV ONE ×2 (13:06→13:52)
[2018-05-15] MEDS ORDERED: Bivalirudin(*) 250 MG VIAL ONE (13:45)
[2018-05-15] MEDS ORDERED: Heparin DRIP 25,000 UNITS(*) 25,000 UNITS/500 ML BAG ONE (14:34)
[2018-05-15] MEDS ORDERED: Heparin DRIP 25,000 UNITS(*) 25,000 UNITS/500 ML BAG IV SCH (14:45)
[2018-05-15] MEDS ORDERED: Heparin VIAL(*) 5000 UNITS/ML VIAL (FIVE THOUSAND) IV SCH (15:00)
[2018-05-15] MEDS ORDERED: Acetaminophen TAB* 325 MG PO PRN (15:08)
[2018-05-15] MEDS ORDERED: Acetaminophen TAB* 325 MG ONE (15:09)
[2018-05-15] MEDS ORDERED: Metoprolol Succinate XL TAB* 25 MG PO ONE ×2 (15:38→16:37)
--- NOTE | 2018-05-15 16:31 | CONS ---
CC: Dr. Nirali Johnson CARDIOLOGY CONSULTATION DATE OF CONSULTATION: 05/15/2018. REASON FOR CONSULTATION: Patient presents with progressive chest symptoms and abnormal EKG suggestin g acute coronary syndrome. HISTORY OF PRESENT ILLNESS: The patient is a 68-year-old gentleman with no prior known cardiac histo ry. Specifically denies any history of myocardial infarction, congestive heart failure, or significa nt heart rhythm disturbance. He states that starting from April 22, he felt like he had cold-lik e symptoms, but then started developing episodes of shortness of breath with chest heaviness sensatio n. It would radiate and develop throat soreness and left arm discomfort. It particularly affected hi s forearm into his wrist area. Over the course of the past couple weeks, he has had increasing frequ ency of it, less bringing on and even developing it at rest. He subsequently came into the hospital and his initial EKG did not show significant acute ST segment changes, but over the course of the nex t two EKG's, he had evidence of biphasic T-wave and T-wave inversion in the early precordial leads tubbs ggesting a Wellens' syndrome. Interestingly, his cardiac enzymes were negative. Since being in the hospital, he states that he does notice an occasional mild discomfort. Cardiac risk factors included a negative history of hypertension, negative smoking history, and negat adrienne history of diabetes. He has a cholesterol that is potentially borderline, but has never been onur d it is a problem. He has a family history with his mother who suffered a myocardial infarction and at the age of 54. PAST MEDICAL HISTORY: History of benign prostatic hypertrophy with a biopsy performed a couple of mo nths ago. PAST SURGICAL HISTORY: History of left ankle surgery due to bone spur. MEDICATIONS: He is not routinely on any medications at home. He recently was started on 81 mg of as pirin a day. He has been faithfully taking that for at least the past week. PERTINENT FAMILY HISTORY: Mother who at the age of 54 due to CAD. SOCIAL HISTORY: He does not smoke cigarettes. He has two to three beers on the weekend. REVIEW OF SYSTEMS: As per the history and physical without any additional findings. PHYSICAL EXAM: When I see him reveals: Vital Signs: Blood pressure 130/74 with a pulse of 70, resp irations 18, O2 saturation 99 percent on room air. Neck: Supple, no increased JVP. Carotid with go od upstroke and volume without bruit. Conjunctivae are pink. Sclerae clear. Mouth revealed moist mu cosa. Lungs: No accessory muscle usage. There was good excursion. There was no active rales, rhon chi, or wheezes. Heart revealed no visible heaves, no palpable heaves or thrills. Normal S1, S2 wit h no S3 or S4 gallop. No significant systolic or diastolic murmur appreciated. Abdomen: Soft, nont adriane without organomegaly. Extremities: Without clubbing, cyanosis, or austyn pitting edema. Periph eral pulses are intact. Femoral pulses present without bruits. The right radial artery was present. Neuro: The patient is alert and oriented with normal mentation. Musculoskeletal: Patient with nor mal gait. Psychiatric: Patient with normal affect. DIAGNOSTIC STUDIES/LAB DATA: Laboratory results from today, 05/15/2018, showed a hemoglobin/hematocr it of 13.6 and 39 with a platelet count of 197,000. Sodium 138, potassium 3.7, chloride 106, bicarb 27, BUN to creatinine 20.9. His troponins over the course of the hospitalization were 0.01, 0.00, 0. 01, 0.01. B-natriuretic peptide was 35. Total cholesterol 190, LDL 123, triglycerides 70, HDL 53.4. Chest x-ray report revealed no scintigraphic evidence of acute cardiopulmonary abnormalities. Electrocardiograms were as described above with the most recent one from 05/15/2018, timed 8:06 a.m., showing biphase T-wave in V2 with T-wave inversion in V1 and V3, flat T-wave in V4 with poor R-waves in the inferior leads and flat T- waves in AVL. OVERALL ASSESSMENT: Chris now presents with symptoms highly suggestive of acute coronary syndrome a nd an EKG suggesting significant disease involving the LAD system. The risks and benefits of cardiac catheterization were explained and at this point in time we will proceed with urgent cardiac cathete rization, adjust management appropriately. He accepts the risks and benefits. Further management wi ll be made pending results. [id number]/[facility] #: [id number]
--- NOTE | 2018-05-15 17:12 | CATH ---
CC: Dr. Nirali Johnson CARDIAC CATHETERIZATION REPORT: DATE OF PROCEDURE: 05/15/18 INDICATION FOR PROCEDURE: The patient presents with acute coronary syndrome with suggestive findings of ischemia to the left anterior descending artery area. PROCEDURE: Coronary arteriography, left heart catheterization, left ventriculography. CONSENT: The patient was interviewed and examined on the floor of the hospital where the risks and benefits were explained. He understood them and wished to proceed. APPROACH: Right radial artery. PRE-CARDIAC CATHETERIZATION LABORATORY RESULTS: Hemoglobin and hematocrit of 13.6 and 39 with a platelet count of 197,000. BUN and creatinine of 20 and 0.9. Electrolytes: Sodium 138, potassium 3.7, chloride 106, bicarb 27. EQUIPMENT UTILIZED: 1. The right radial artery sheath - a 6-Cuban Glidesheath. 2. The diagnostic guidewire - a Thompson 260 cm curved guidewire. 3. Diagnostic coronary catheter - a 5-Cuban TIG 4 curve catheter. 4. The left heart cardiac catheterization catheter - a 5-Cuban PIG Performa radial. MEDICATIONS GIVEN DURING THE PROCEDURE: 1. Versed 0.5 mg. 2. Oxygen by nasal cannula. DESCRIPTION OF PROCEDURE: The patient was brought to the cardiovascular laboratory where a formal time-out was performed. He was prepped and draped in sterile fashion. The right radial artery area had already been assessed on the floor of the hospital by ultrasound and found to be acceptable as an approach. In the laborer prestressed concrete, under ultrasound guidance, once the right radial artery area was prepped and draped sterilely, the right radial artery was cannulated and sheath was placed. Diagnostic coronary arteriography, left heart catheterization , and left ventriculography were performed. A total of 24 cc of Omnipaque dye at a rate of 12 cc per second was utilized for the left ventriculography. The total contrast used was 65 cc of Omnipaque dye. The radiation exposure included 5.4 minutes of fluoro time. The air kerma radiation was 1472 milligray. The DAP radiation was 7304 microgray per meter square. RESULTS: HEMODYNAMIC DATA: Left heart catheterization - central aortic pressure was recorded at 127/62 with a mean of 93. Left ventricular pressure 120 over left ventricular end-diastolic pressure of 13. LEFT VENTRICULOGRAPHY: Performed in the [place] projection - revealed symmetrical contraction of the left ventricle with no focal wall motion abnormalities. The overall ejection fraction was noted to be 60%. No significant mitral regurgitation was noted. CORONARY ARTERIOGRAPHY: A. Right coronary artery - the right coronary artery was a dominant vessel with mild 20% proximal to mid narrowing. The distal segment prior to the PDA had an area that appeared to have narrowing as much as 35% to 40%. No focal significant stenosis was seen throughout the vessel. B. Left coronary artery: 1. Left main - widely patient with no significant disease. 2. Left anterior descending artery - a diffusely diseased artery with a long 60% proximal segment culminating in a 95% lesion involving the first septal drop man. Past this point in the mid portion at the takeoff of a second septal drop man was an area of narrowing as much as 75% to 80%. Past this point was a distal stenosis of a 65% to 70%. The first diagonal branch was a small caliber vessel with an ostial 50% stenosis. The second diagonal branch was a somewhat larger size vessel with an ostial 70% narrowing and a 75% to 80% proximal narrowing. The caliber of this vessel is difficult to assess due to possible hypoperfusion, but appeared to be of the caliber of 1.7 to 2 mm. Calcium was seen throughout the proximal mid segment of the LAD. The first septal drop man had an ostial 85% lesion. 3. Circumflex artery - a nondominant vessel supplying a thin first short obtuse marginal branch with a somewhat longer second obtuse marginal branch. The third obtuse marginal branch bifurcated to superior and inferior branch. There was mild 20% narrowing seen within the proximal segment. OVERALL ASSESSMENT: Normal left ventricular contractility with significant single vessel disease involving a diffusely diseased LAD. Given the multiple areas of stenosis, this would clearly require multiple stent placements and possible jeopardizing the first septal drop man with a critical narrowing noted within the ostium of the first septal drop man. The second diagonal branch is a borderline caliber vessel, but it would be interested to hear a surgical opinion as to whether or not a skipped graft on the LAD to touching down to multiple areas as well as a vein graft to diagonal branch is possible. Also, the potential of it. At this point in time, we will transfer the patient to [facility] to obtain both interventional opinion on extensive stenting throughout the whole LAD system versus bypass surgery. The patient has expressed the desire to hear both opinions before making a definitive answer. [id number]/[facility] #: [id number] RICCO
[2018-05-15 18:30] VITALS: BP 146/95
[2018-05-15] MEDS ORDERED: Atorvastatin* 80 MG TAB PO SCH (21:00)
--- NOTE | 2018-05-16 07:04 | DS ---
CC: Dr. Nirali Johnson.* DISCHARGE SUMMARY: DATE OF ADMISSION: 05/14/18 DATE OF TRANSFER: 05/15/18 PROVIDER: Zenia Schwab NP ATTENDING PHYSICIAN: Dr. Sykes * (report dictated by Martin Schwab NP). PRIMARY CARE PROVIDER: Dr. Nirali Johnson. TRANSFER TO: [facility] in [place], [place]. TRANSFER REASON: Advanced coronary artery disease and unstable angina. DISCHARGE DIAGNOSES: Unstable angina, found to have extensive coronary artery disease by cardiac catheterization requiring higher level of care. HISTORY OF PRESENT ILLNESS AND HOSPITAL COURSE: Please see history and physical by Dr. Sanchez for full admission details, but in summary this is a 68- year-old male who presented to the emergency department yesterday on 05/14/18 with complaint of shortness of breath and chest pain. The patient reports since approximately mid April around 04/22/18 he developed shortness of breath with midsternal chest discomfort, worse with exertion intermittently. He reports at times the chest discomfort would radiate to his left shoulder blade to his neck, to his throat and sometimes to his left shoulder. He reports this worsened with exertion, especially during exercise where he has had to dial down to his exercise regimen. When he presented to the emergency department on 05/14/18 he reported at that time he had midsternal sharp chest pain lasting a few seconds radiating into the left shoulder reporting rest would make it better. He also reported a left forearm to his left wrist discomfort stating this was a strange and new sensation in pain for him. He did see his primary care provider and was scheduled to see the raw finish mill operator this , but became concerned and came to the emergency department. In the emergency department he was given aspirin 325 and setup for a stress test the next morning. He was admitted to the hospitalist service and monitored on telemetry where he had 3 flat troponins. He was noted to have EKG changes this morning on his repeat EKG, which showed EKG changes in V1, V2, and V3. I discussed this with child day care provider Dr. Cameron and the patient's stress test was canceled and a cardiology consult by Dr. Cameron was performed and there was a concern he was having unstable angina and he was brought to the cardiac Mainframe Systems Administrator today. He was found to have extensive coronary artery disease with EF of 60% with multiple LAD lesions with the proximal right main of 60% leading to 90%, and a right moderate distal 30% to 35%. Please see Dr. Cameron' s dictated cardiac catheterization report for full details. Dr. Cameron recommended transfer to a facility for higher level of care as the patient may require multiple stents, but most likely cardiac bypass. The patient did have a wrist catheterization. He was started on a heparin drip with unstable angina protocol of 12 units per kilograms and he was given 3000 unit bolus during the cardiac catheterization and prior to the dripping started he was given a [address] Cameron's recommendation. The patient is currently stable without chest pain or shortness of breath. His is at the bedside. They agreed with the plan to be transferred to [facility] and will pay the difference of the ambulance if insurance does not cover the cost. The patient is hemodynamically stable. Please note, the patient was also given metoprolol 12.5 mg as well as 80 mg of Lipitor. DISCHARGE MEDICATIONS: 1. Acetaminophen 60 mg p.o. q.4 hours p.r.n. 2. Fish oil 1400 mg p.o. daily. 3. Aspirin 81 mg p.o. daily. 4. Vitamin D 1000 units p.o. daily. 5. Coenzyme Q10 1 cap p.o. daily (dose unknown). 6. Trazodone HCL 75 mg p.o. at bedtime p.r.n. insomnia. 7. Atorvastatin 80 mg p.o. daily. 8. Metoprolol 12.5 mg p.o. daily. 9. Heparin drip 25,000 units in 500 mL per protocol - the patient is on the heparin protocol for unstable angina at 12 units per kilogram per hour. CODE STATUS: Full code. Healthcare proxy, Daysi Ivan [phone], . TIME SPENT: Approximately 75 minutes was spent on this transfer summary. This case was discussed with the attending physician Dr. Sykes who agrees with the plan of care as well as Dr. Cameron. ZENIA SCHWAB, LAND INSPECTOR [id number]/[facility] #: [id number] [facility]ACH HOSPITALRogerio
[2018-05-16] MEDS ORDERED: Metoprolol Succinate XL TAB* 25 MG PO SCH (09:00)
== END 2018-05-15 19:13 | disposition short-term general hospital (02) ==
LOC: ED 20:29 → MEDTELE 22:53 → ICU 05-15 17:41
PROVIDERS: ADMIT Internal Medicine; ATTEND Internal Medicine Cardiovascular Disease
DX: I25.10 Atherosclerotic heart disease of native coronary artery without angina pectoris (principal); I20.0 Unstable angina; Z79.82 Long term (current) use of aspirin; R07.9 Chest pain, unspecified; R06.02 Shortness of breath; R97.20 Elevated prostate specific antigen [PSA]; E78.5 Hyperlipidemia, unspecified
CPT/HCPCS: 36415; 71045; 76937; 80048; 80053; 80061; 83735; 83880; 84484; 85025; 85610; 86140; 93005; 93458; 96374; 96375; 96376; 99156; 99157; 99283; A9270-GY; G0378; J0583; J1644; J2250; J3010

== ENCOUNTER 2018-06-03 15:09 | Inpatient (IN) | payer OTHER ==
--- NOTE | 2018-06-03 15:32 | ED ---
HPI Chest Pain - HPI Summary HPI Summary: A 68 y/o M presents to ED with c/o L-sided CP onset approx 1300. Pt was seen in [facility] by Dr. Bell yesterday for CP, but he states today's episode feels different. At its worst, today's CP was rated a 10 out of 10. At bedside, he rates the CP as 3 out of 10. Pt had a double bypass on 05/17/18 at [facility] with Dr. Mena. The patient's associated sx include: severe lower jaw pain that radiates to his L ear and LUE. He states the CP radiates to his back. He denies cough, fever, abd pain, and urinary/bowel changes. He took baby aspirin and hydrocodone prior to arrival to no relief. He is scheduled to see Dr Martinez, cardio, on 06/06/18. - History of Current Complaint Chief Complaint: EDChestPainROMI Time Seen by Provider: 06/03/18 15:20 Hx Obtained From: Patient Onset/Duration: Started Hours Ago, Still Present Timing: Constant Initial Severity: Moderate Current Severity: Moderate Pain Intensity: 6 Pain Scale Used: 0-10 Numeric Chest Pain Location: Left Anterior Chest Pain Radiates: Yes Chest Pain Radiates To:: Back, Arm, Jaw Alleviating Factor(s): Nothing Associated Signs and Symptoms: Positive: Other: - pos: jaw pain radiating to LUE and L ear. neg: urinary/bowel incontinence. Negative: Fever, Cough, Abdominal Pain - Additional Pertinent History Primary Care Physician: [id number] - Allergy/Home Medications Allergies/Adverse Reactions: Allergies Allergy/AdvReac Type Severity Reaction Status Date / Time No Known Allergies Allergy Verified 06/03/18 15:21 Home Medications: Home Medications Atorvastatin* [Lipitor*] 10 mg PO BEDTIME 06/03/18 [History Confirmed 06/03/18] Metoprolol Tartrate TAB* [Lopressor TAB*] 50 mg PO BID 06/03/18 [History Confirmed 06/03/18] PMH/Surg Hx/FS Hx/Imm Hx Previously Healthy: No Endocrine/Hematology History: Reports: Hx Anemia - HX OF- CURRENTLY TAKING IRON SAW DR. MORTON IN THE PAST FOR Denies: Hx Anticoagulant Therapy, Hx Diabetes, Hx Thyroid Disease Cardiovascular History: Denies: Hx Congestive Heart Failure, Hx Deep Vein Thrombosis, Hx Hypertension , Hx Myocardial Infarction, Hx Pacemaker/ICD Respiratory History: Reports: Hx Sleep Apnea - STATES NO TREATMENT- STATES IS BORDERLINE Denies: Hx Asthma, Hx Chronic Obstructive Pulmonary Disease (COPD), Hx Lung Cancer, Hx Pneumonia, Hx Pulmonary Embolism GI History: Denies: Hx Gall Bladder Disease, Hx Gastrointestinal Bleed, Hx Ulcer, Hx Urosepsis History: Reports: Other Problems/Disorders - HX OF BLADDER INFECTIONS- LAST 2-3 YRS AGO-SEES DR. MOLINA Q 6 MONTHS Denies: Hx Kidney Stones, Hx Renal Disease Musculoskeletal History: Reports: Hx Arthritis - RIGHT SHOULDER, Hx Tendonitis - HX OF - BILATERAL SHOULDERS AND HANDS IN THE PAST// CURRENT LEFT WRIST POSS Denies: Hx Rheumatoid Arthritis, Hx Osteoporosis Sensory History: Reports: Hx Cataracts - BILATERAL, Hx Contacts or Glasses - GLASSES Denies: Hx Hearing Aid Opthamlomology History: Reports: Hx Cataracts - BILATERAL, Hx Contacts or Glasses - GLASSES Neurological History: Reports: Hx Headaches - HX OF 20 YEARS AGO Denies: Hx Dementia, Hx Migraine, Hx Seizures, Hx Transient Ischemic Attacks (TIA) Psychiatric History: Reports: Hx Anxiety - HX OF OCCASIONALLY- STATES NONE RECENTLY, Hx Depression - HX OF IN THE PAST PER PATIENT Denies: Hx Panic Disorder, Hx Schizophrenia, Hx Bipolar Disorder - Cancer History Cancer Type, 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 1999- ARTHROSCOPIC - Lt ANKLE. 1964 & PILONIDAL CYST REMOVED. 12/2013 ARTHROSCOPIC LEFT ANKLE. 2018 ankle surgery Hx Anesthesia Reactions: No Infectious Disease History: No Infectious Disease History: Reports: Hx Shingles Denies: Hx Clostridium Difficile, Hx Hepatitis, Hx Human Immunodeficiency Virus (HIV), Hx of Known/Suspected MRSA, Hx Tuberculosis, Hx Known/Suspected VRE , Hx Known/Suspected VRSA, History Other Infectious Disease, Traveled Outside the [place] in Last 30 Days - Family History Known Family History: Positive: None Negative: Cardiac Disease, Hypertension, Diabetes - Social History Occupation: Employed Full-time Lives: With Family Alcohol Use: Weekly Alcohol Amount: 6 weekly-BEER Hx Substance Use: No Substance Use Type: Reports: None Hx Tobacco Use: No Smoking Status (MU): Never Smoked Tobacco Review of Systems Negative: Fever Positive: Ear Ache, Other - lower jaw pain Positive: Chest Pain Negative: Cough Negative: Abdominal Pain Negative: incontinence Positive: Other - back and LUE pain All Other Systems Reviewed And Are Negative: Yes Physical Exam - Summary Physical Exam Summary: VITAL SIGNS: Reviewed. GENERAL: Patient is a well-developed and nourished MALE who is lying comfortable in the stretcher. Patient is not in any acute respiratory distress. HEAD AND FACE: No signs of trauma. No ecchymosis, hematomas or skull depressions. No sinus tenderness. EYES: PERRLA, EOMI x 2, No injected conjunctiva, no nystagmus. EARS: Hearing grossly intact. Ear canals and tympanic membranes are within normal limits. MOUTH: Oropharynx within normal limits. NECK: Supple, trachea is midline, no adenopathy, no JVD, no carotid bruit, no c- spine tenderness, neck with full ROM. CHEST: Symmetric, no tenderness at palpation. Scar is well-healing, shows no sign of infection. LUNGS: Clear to auscultation bilaterally. No wheezing or crackles. CVS: Regular rate and rhythm, S1 and S2 present, no murmurs or gallops appreciated. ABDOMEN: Soft, non-tender. No signs of distention. No rebound, no guarding, and no masses palpated. Bowel sounds are normal. EXTREMITIES: FROM in all major joints, no edema, no cyanosis or clubbing. NEURO: Alert and oriented x 3. No acute neurological deficits. Speech is normal and follows commands. SKIN: Dry and warm Triage Information Reviewed: Yes Vital Signs On Initial Exam: Initial Vitals Temp Pulse Resp BP Pulse Ox 99.4 F 85 16 149/79 97 06/03/18 15:17 06/03/18 15:17 06/03/18 15:17 06/03/18 15:17 06/03/18 15:17 Vital Signs Reviewed: Yes Diagnostics - Vital Signs Vital Signs Temp Pulse Resp BP Pulse Ox 06/03/18 15:17 99.4 F 85 16 149/79 97 - Laboratory Result Diagrams: 06/03/18 15:38 06/03/18 15:38 Lab Statement: Any lab studies that have been ordered have been reviewed, and results considered in the medical decision making process. - EKG 1545 Cardiac Rate: NL - 86 bpm EKG Rhythm: Sinus Rhythm ST Segment: Normal - no ST elevation EKG Comparison: No Significant Change - from EKG on 06/02/18 1541 Cardiac Rate: NL - 86 bpm EKG Rhythm: Sinus Rhythm ST Segment: Normal - no ST elevation EKG Comparison: No Significant Change - from EKG on 06/02/18 Chest Pain Course/Dx - Course Assessment/Plan: A 68 y/o M presents to ED with c/o L-sided CP onset approx 1300. Pt was [facility] by [facility] Bell yesterday for CP, but he states today's episode feels different. At its worst, today's CP was rated a 10 out of 10. At bedside, he rates the CP as 3 out of 10. Pt had a double bypass on 05/17/18 at [facility] with Dr. Mena. The patient's associated sx include: severe lower jaw pain that radiates to his L ear and LUE. He states the CP radiates to his back. He denies cough, fever, abd pain, and urinary/bowel changes. He took baby aspirin and hydrocodone prior to arrival to no relief. He is scheduled to see Dr Martinez, cardio, on 06/06/18. Test results without any significant abnormality except for hemoglobin 11.3 hematocrit 34. Ears eyes 46 , INR is 1.0, creatinine is 1.62 and glucose 111. CRP is 37.1 BNP is 229, and troponin of 0.02. Urinalysis is negative for UTI. EKG shows no changes from the previous EKG done yesterday. There is no ST elevations. In the ED course the patient was given aspirin. Discussed the case with Dr. Pina who accepted the patient for admission. Patient is hemolyticus stable alert and oriented 3. - Chest Pain Differential Diagnosis/HQI/PQRI: Acute LA, ACS, Angina, CHF, Chest Wall, GI Disease, Lower Respiratory Infection - Diagnoses Provider Diagnoses: Chest pain - Provider Notifications Discussed Care Of Patient With: Juan Sykes - hospitalist Time Discussed With Above Provider: 16:13 Instructed by Provider To: Admit As Inpatient Discharge - Sign-Out/Discharge Documenting (check all that apply): Patient Departure - ADMIT - Discharge Plan Condition: Stable Disposition: ADMITTED TO [facility] - Billing Disposition and Condition Condition: STABLE Disposition: Admitted to [facility] - Attestation Statements Document Initiated by Scribe: Yes Documenting Scribe: Patsy Ventura Provider For Whom Iris is Documenting (Include Credential): Dr. Tano Bell MD Scribe Attestation: I, Patsy Ventura, scribed for Dr. Tano Bell MD on 06/03/18 at 1842. Scribe Documentation Reviewed: Yes Provider Attestation: The documentation as recorded by the fuadibPatsy murphy accurately reflects the service I personally performed and the decisions made by me, Dr. Tano Bell MD
[2018-06-03 15:46] LABS: ABS Basophils 0.1 10^3/ul (0-0.2); ABS Eosinophils 0.3 10^3/ul (0-0.6); ABS Lymphocytes 0.7 10^3/ul (1.0-4.8); ABS Monocytes 0.8 10^3/ul (0-0.8); ABS Neutrophils 7.9 10^3/ul (1.5-7.7); ABS Nucleated RBC 0 10^3/ul; Eosinophil % 3.3 % (0-6); Hematocrit 34 % (42-52); Hemoglobin 11.3 g/dl (14.0-18.0); Lymphocyte % 7.4 % (25-47); Mean Corpuscular HGB Conc 34 g/dl (31-36); Mean Corpuscular Hemoglobin 29 pg (27-31); Mean Corpuscular Volume 87 fL (80-94); Mean Platelet Volume 7.8 fL (7.4-10.4); Nucleated Red Blood Cells % 0; Platelet Count 401 10^3/ul (150-450); Red Blood Count 3.88 10^6/ul (4.00-5.40); Red Cell Distribution Width 14 % (10.5-15); White Blood Count 9.8 10^3/ul (3.5-10.8)
[2018-06-03 15:51] LABS: INR 1.1 (0.77-1.02)
[2018-06-03 16:02] LABS: EGFR Non-African American 42.6 (>60)
[2018-06-03] MEDS ORDERED: Ondansetron INJ* 2 MG/ML VIAL IV PRN (17:16)
[2018-06-03] MEDS ORDERED: Acetaminophen TAB* 325 MG PO PRN (17:16)
[2018-06-03 17:49] LABS: Urine Appearance Clear; Urine Blood Negative (Negative); Urine Color Straw; Urine Ketones Negative (Negative); Urine Protein Negative (Negative); Urine Specific Gravity 1.008 (1.010-1.030); Urine Urobilinogen Negative (Negative)
[2018-06-03 19:22] LABS: EGFR Non-African American 52.6 (>60)
[2018-06-03] MEDS: Metoprolol Tartrate TAB* 50 mg PO SCH (19:27)
[2018-06-03] MEDS: NS 0.9% 1000 ML* 1,000 ML IV SCH ×3 (19:28→21:54)
[2018-06-03] MEDS ORDERED: Aspirin 81 mg CHEW TAB* 81 MG TAB.CHEW PO ONE (19:55)
[2018-06-03] MEDS ORDERED: Nitroglycerin 2% OINT* 1 GM PAK TOPICAL ONE (19:55)
[2018-06-03] MEDS ORDERED: Aspirin TAB* 325 MG ONE (19:57)
[2018-06-03] MEDS ORDERED: Nitroglycerin 2% OINT* 1 GM PAK ONE (19:58)
[2018-06-03] MEDS ORDERED: Aspirin EC TAB* 81 MG TAB.EC ONE (19:59)
[2018-06-03] MEDS ORDERED: Heparin DRIP 25,000 UNITS(*) 25,000 UNITS/500 ML BAG IV SCH (20:00)
[2018-06-03] MEDS ORDERED: nitroGLYCERIN DRIP* 25,000 MCG/250 ML BTL ONE (20:41)
[2018-06-03] MEDS ORDERED: Atorvastatin* 10 MG TAB PO SCH (21:00)
[2018-06-03] MEDS ORDERED: nitroGLYCERIN DRIP* 25,000 MCG/250 ML BTL IV SCH (21:00)
--- NOTE | 2018-06-03 21:15 | HP ---
CC: Dr. Johnson; Dr. Flaherty * HISTORY AND PHYSICAL: DATE OF ADMISSION: 06/03/18. PRIMARY CARE PROVIDER: Dr. Johnson. ATTENDING PHYSICIAN WHILE IN THE HOSPITAL: Dr. Juan Sykes * (report dictated by Rafal Loera NP). CONSULTING SENIOR CONTRACTS ADMINISTRATOR: Dr. Flaherty. CHIEF COMPLAINT: Chest pain. HISTORY OF PRESENT ILLNESS: Mr. Ivan is a 68-year-old male patient who is coming into our services today, stating that he has developed chest discomfort. Please note, that the patient does carry a history of CAD, hyperlipidemia, hypertension, and insomnia. He had a CABG 2 weeks ago, when he was here, he was actually admitted initially on 05/14/18, the next day it was noted that he had slightly worsening EKG changes. He was taken to cath and it was found that he had extensive coronary artery disease and he was transferred to [facility] for further care. He underwent a double bypass about 2 weeks ago, on 05/17/18. He is presenting today stating that last couple of days he has had intermittent chest discomfort. Yesterday, the pain was mostly near the chest tube sites, epigastric and on the top part of this incision. It was felt to be possibly related to incisional type pain. He was sent out on Wendel. He said he was feeling better when he got home, but today around 1:15, he noted that he had about an half an hour to 45 minutes after taking Wendel, he started getting burning in the jaw and down the left arm that was intense, it was non- positional. He felt short of breath because of the pain was so great, he could not take a deep breath because it hurt. He denied feeling diaphoretic or nauseous with this, but he was concerned because the pain was very intense, so he actually came back to the ER again. By the time he got here the pain was subsiding. He denied having any substernal chest pressure, and he says the pain was not positional in the sense that if he sat up and sat down, the pain did not get any worse or better. He denied having any fevers. He did admit to having chills. He denied any abdominal discomfort. He says he has not been constipated. He has been having bowel movements. He denied having any chest pain with exertion and he really denied having any shortness of breath with the exception that the pain so great he could not take a deep breath. He came into the ED today, he was evaluated. Because of the chest discomfort, we were asked to evaluate for admission. PAST MEDICAL HISTORY: Significant for: 1. CAD. 2. Hyperlipidemia. 3. Hypertension. 4. Insomnia. PAST SURGICAL HISTORY: 1. He has had left ankle surgery. 2. CABG which was done on 05/17/18. 3. Cardiac catheterization. MEDICATIONS: His home meds include: 1. Metoprolol 50 mg p.o. twice a day. 2. Lipitor 10 mg at bedtime. 3. Trazodone 75 mg at bedtime as needed. 4. Vitamin D 1 tablet p.o. daily. 5. Fish oil 1400 mg p.o. daily in the morning. 6. Wendel 1 tablet t.i.d. as needed. 7. Ferrous sulfate 1 tablet p.o. daily. 8. Co-enzyme Q10 one tablet daily. 9. Aspirin 81 mg daily. ALLERGIES TO MEDICATIONS: No known drug allergies. FAMILY HISTORY: He believes his mother had a history of CAD. The father related to complications of surgery. SOCIAL HISTORY: He does no smoke. He rarely drinks. His surrogate decision maker is his . REVIEW OF SYSTEMS: There is no documented fever. He denied having any significant weight change. There is no double vision. He denies having any ear discharge. There is no rhinorrhea. No sore throat. No thyroid enlargement. There is chest pain from my HPI. There was no orthopnea. There was no nocturnal dyspnea. He denied having any abdominal pain. No nausea. No vomiting. There was no dysuria. No frequency. There was no seizure. There was no loss of consciousness. No pruritus, and no skin ulcerations. Review of 14 systems completed, all others negative. PHYSICAL EXAMINATION GENERAL: At this time, Mr. Ivan is a 68-year-old male patient. He is sitting in the ED stretcher. He does not appear to be in any acute distress. He appears to be well nourished and well developed. VITAL SIGNS: Blood pressure 125/73 with the pulse of 85, respirations were 16, O2 saturation was 95%. HEENT: Head: Atraumatic and normocephalic. Eyes: EOMs are intact. Sclerae anicteric and not pale. Throat: Oral mucosa appears to be moist. No oropharyngeal erythema. NECK: Supple. LUNGS: Clear to auscultation bilaterally. No wheezes, rales, or rhonchi. HEART: Sounds S1 and S2. He had a regular rate and rhythm. There were no murmurs, rubs, or gallops. ABDOMEN: Soft, flat, and nontender. Bowel sounds were present. EXTREMITIES: Pulses were 2+ throughout. He is moving all 4 extremities with 5/ 5 strength. NEUROLOGIC: He is awake, alert, and oriented x3. No gross focal deficits. SKIN: He has a midline sternal incision, which is clean, dry, and intact. He has incisions to his epigastric area from chest tube placements, which are clean , dry and intact. He has no erythema or drainage noted. Otherwise intact. DIAGNOSTIC STUDIES/LAB DATA: Labs: WBC 9.8, RBC of 3.88, hemoglobin of 11.3, hematocrit of 34, platelet count of 401. INR of 1.10. Sodium was 135, potassium was 4.0, chloride of 101, bicarb 27, BUN 24, creatinine 1.62, his baseline creatinine is 1. His glucose 115, lactic 0.6, calcium 9.2. Total bili 0.3, AST 10, ALT 10, alk phos 74. CK is 21, CK-MB 1.24. Troponin 0.02. CRP pending. BNP was 229. Albumin was 3.9. TSH normal. He did have an EKG obtained today and interestingly compared to his previous EKGs, he does have the T-wave inversions in V1, V2, and biphasic in V3. He has had these inversions previously along with flattened T-waves in V4. Interestingly, though the new one today in the lead II, III and AVF, he has got inverted T-waves in lead III and AVF, in addition to this flattened in lead II, which are now new. He is showing a normal sinus rhythm with a rate of 86, and old medical records were reviewed. He had a chest x-ray done yesterday, which showed a trace pleural effusion. Old medical records were reviewed. Again, he did have a cath done on the 5th of this month, which showed normal LV function. Overall assessment normal LV function with significant single vessel disease involving diffusely diseased LAD given the multiple areas of stenosis, this would clearly require multiple stent placements, possible jeopardizing the first septal brief writer with a critical narrowing noted within the ostium of the first septal brief writer. The second-degree branch is a borderline caliber vessel, but it would be interested to hear surgical opinion as to whether or not graft on the LAD to touching down to multiple areas as well as a vein graft to diagonal branch is possible. Also due to potential of it at this point in time, the patient will be transferred to [facility] for both interventional opinion and on acceptance, stenting or versus bypass. So at that point, the patient was transferred. Chest x-ray when I reviewed it, I did not appreciate any acute infiltrates. It was a poor film given his body habitus. ASSESSMENT AND PLAN: Mr. Ivan is a 68-year-old male patient coming into the ED today with complaints of a chest discomfort in the setting of a recent CABG, we were asked to evaluate for admission. He will be admitted under observation status for: 1. Chest pain. Again, etiology is unclear, it is atypical; however certainly, he does have these new EKG changes which could be placement, and it could be changed for various reasons. His pain is almost gone now. His first troponin was negative. He is feeling much more comfortable, in fact when I reevaluated him again, he says the pain is undetectable. The CRP is climbing, it was 28, it is now 37 today. An ESR is pending. I do think the Murray syndrome is on the differential. I did touch base with Dr. Flaherty. The plan will be to cycle 2 more troponins. In addition to this get an echo, place him on telemetry and continue to follow, and we will continue to monitor. I have ordered colchicine for possible stressors. 2. Coronary artery disease. Continue aspirin, statin, and beta-sofia therapy. 3. Hyperlipidemia. Continue statin therapy. 4. Hypertension. Continue with beta-sofia. 5. Acute renal failure, etiology is unclear, it could be secondary to NSAIDs use, although he says he is taking 1 or 2 NSAIDs and he has been taking them not on a daily basis. I think we need a FeNa. We did bladder scan and his postvoid residuals are 100, so I do not think that he is obstructed. I will get a renal ultrasound. We will send off FeNa, hydrate the patient with normal saline at 100 an hour for a liter. We will avoid nephrotoxic agents and we will follow. 6. DVT prophylaxis: He will be placed on heparin subcu. 7. Code status: He is a full code. 8. Fluids, electrolytes, and nutrition: He can have a heart-healthy diet. TIME SPENT: On admission 60 minutes, greater than half the time was spent face- to- face with the patient obtaining my history and physical; other half the time was spent going over the plan of care with the patient, implementing the plan of care. I did discussed the plan of care with my attending, Dr. Sykes; he is in agreement. RAFAL LOERA NP [id number]/[facility] #: [id number] MTDRogerio
[2018-06-03 21:41] LABS: ABS Basophils 0 10^3/ul (0-0.2); ABS Eosinophils 0.3 10^3/ul (0-0.6); ABS Lymphocytes 0.9 10^3/ul (1.0-4.8); ABS Neutrophils 6.2 10^3/ul (1.5-7.7); ABS Nucleated RBC 0 10^3/ul; Eosinophil % 3.9 % (0-6); Hematocrit 32 % (42-52); Hemoglobin 10.7 g/dl (14.0-18.0); Lymphocyte % 10.9 % (25-47); Mean Corpuscular HGB Conc 34 g/dl (31-36); Mean Corpuscular Hemoglobin 29 pg (27-31); Mean Corpuscular Volume 87 fL (80-94); Mean Platelet Volume 7.8 fL (7.4-10.4); Nucleated Red Blood Cells % 0; Platelet Count 403 10^3/ul (150-450); Red Blood Count 3.64 10^6/ul (4.00-5.40); Red Cell Distribution Width 13 % (10.5-15); White Blood Count 8.5 10^3/ul (3.5-10.8)
[2018-06-03 21:57] LABS: EGFR Non-African American 61.4 (>60)
[2018-06-03] MEDS ORDERED: Heparin VIAL(*) 5000 UNITS/ML VIAL (FIVE THOUSAND) SUBCUT SCH (22:00)
[2018-06-03] MEDS ORDERED: Heparin VIAL(*) 5000 UNITS/ML VIAL (FIVE THOUSAND) ONE (22:04)
[2018-06-03] MEDS: Colchicine* 0.6 MG TAB PO SCH (22:21)
[2018-06-03] MEDS ORDERED: Iohexol 350* (CONTRAST) 500 ML MDV IV ONE (22:26)
[2018-06-03] MEDS ORDERED: Clopidogrel TAB* 300 MG PO ONE (22:38)
[2018-06-03] MEDS ORDERED: Metoprolol Tartrate IV* 1 MG/ML 5 ML VIAL IV ONE (23:43)
[2018-06-03] MEDS ORDERED: Metoprolol Tartrate IV* 1 MG/ML 5 ML VIAL ONE (23:45)
[2018-06-04] MEDS ORDERED: Metoprolol Tartrate TAB* 25 MG ONE (00:21)
[2018-06-04] MEDS ORDERED: fentaNYL* 50 MCG/ML 2 ML VIAL (100 MCG VIAL) ONE (00:48)
[2018-06-04] MEDS ORDERED: Midazolam* 1 MG/ML 10 ML VIAL (10 MG) ONE (00:48)
[2018-06-04] MEDS ORDERED: VERAPAMIL 2.5 MG/ML 2 ML VIAL ** 5 mg/2 ml ONE (00:48)
[2018-06-04] MEDS ORDERED: nitroGLYCERIN DRIP* 25,000 MCG/250 ML BTL ONE (00:48)
[2018-06-04] MEDS ORDERED: Heparin(*) 1000 UNIT/ML 10 ML VIAL CATH LAB IV ONE (00:48)
[2018-06-04] MEDS ORDERED: Lidocaine 1% INJ* 10 MG/ML 30 ML SDV ONE (00:48)
[2018-06-04] MEDS ORDERED: Heparin 2 UNITS/ML IVPREMIX* 3,000 ML IV ONE (00:48)
[2018-06-04] MEDS ORDERED: Iohexol 350 (CONTRAST) 200 ML MDV IV ONE ×3 (00:49→00:54)
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
[2018-06-04] MEDS ORDERED: Metoprolol Tartrate TAB* 25 MG PO ONE (01:00)
[2018-06-04] MEDS ORDERED: Iodixanol 320 (CONTRAST) 100 ML SDV ONE (01:27)
[2018-06-04] MEDS ORDERED: Eptifibatide IV (Load dose)(*) 2 MG/ML 10 ml VIAL ONE (02:13)
[2018-06-04] MEDS ORDERED: Ticagrelor* 90 MG TAB PO ONE (02:19)
[2018-06-04] MEDS ORDERED: Nitroglycerin TAB 0.4 MG* 0.4 MG TAB SL PRN (04:10)
[2018-06-04] MEDS ORDERED: NS 0.9% 1000 ML* 400 ML IV SCH (04:15)
[2018-06-04] MEDS: Atorvastatin* 80 MG TAB PO SCH ×2 (05:04→21:07)
[2018-06-04 05:40] LABS: ABS Basophils 0 10^3/ul (0-0.2); ABS Eosinophils 0.3 10^3/ul (0-0.6); ABS Lymphocytes 0.8 10^3/ul (1.0-4.8); ABS Monocytes 0.7 10^3/ul (0-0.8); ABS Neutrophils 4.9 10^3/ul (1.5-7.7); ABS Nucleated RBC 0 10^3/ul; Eosinophil % 4.4 % (0-6); Hematocrit 30 % (42-52); Lymphocyte % 12.4 % (25-47); Mean Corpuscular HGB Conc 34 g/dl (31-36); Mean Corpuscular Hemoglobin 30 pg (27-31); Mean Corpuscular Volume 87 fL (80-94); Nucleated Red Blood Cells % 0; Platelet Count 348 10^3/ul (150-450); Red Blood Count 3.39 10^6/ul (4.00-5.40); Red Cell Distribution Width 14 % (10.5-15); White Blood Count 6.7 10^3/ul (3.5-10.8)
[2018-06-04 06:00] LABS: EGFR Non-African American 88.4 (>60)
[2018-06-04 06:02] LABS: INR 1.14 (0.77-1.02)
[2018-06-04] MEDS: Ticagrelor* 90 MG TAB PO SCH ×2 (08:19→21:07)
[2018-06-04] MEDS: traZODone TAB* 50 MG TAB PO PRN ×2 (08:19→21:07)
[2018-06-04] MEDS: Metoprolol Tartrate TAB* 50 mg PO SCH ×2 (08:20→21:07)
[2018-06-04] MEDS: Enoxaparin(*) 80 MG/0.8 ML SYR SUBCUT SCH ×2 (08:20→21:07)
[2018-06-04] MEDS: Aspirin 81 mg CHEW TAB* 81 MG TAB.CHEW PO SCH (08:20)
[2018-06-04] MEDS: Colchicine* 0.6 MG TAB PO SCH ×2 (08:22→21:07)
[2018-06-04] MEDS ORDERED: Clopidogrel TAB* 75 MG PO SCH (09:00)
--- NOTE | 2018-06-04 11:56 | ECHO ---
Amended Report Patient: JODI IZAGUIRRE [facility] Rec#: [id number] : 1950 Date: 06/04/2018 Age: 68y Height: 163 cm / 64.2 in Weight: 77.1 kg / 169.9 lbs Sex: M BSA: 1.83 Room#: [facility] Admit Date#: 06/03/2018 Type: Inpatient Referring: Rafal Loera NP Reading: Bina Flaherty MD Break Up Worker: Estephanie Latham RDCS CC: MAIRA VOGEL Transthoracic Echocardiogram Indication: Chest Pain BP: 117/57 HR: 79 Rhythm: NSR with PVCs Findings History: CAD, s/p CABG 05/17/18, HTN, HLD. Technical Comments: The study quality is fair. Completed at 1010. Left Ventricle: The left ventricular chamber size is normal. There is no left ventricular hypertrophy. There is a focal wall motion abnormality present.Focal area on the mid anterior wall on short axis, apical 1/2-1/2 of anterior septum on 3 chamber view. The base of the inferior wall extending to the base of the lateral wall appears relatively hypokinetic. There is mildly decreased left ventricular systolic function. The estimated ejection fraction is 40-45%. Post surgical hypokinesis of the interventricular septum is observed consistent with coronary artery bypass. Abnormal left ventricular diastolic function is observed. The patient was unable to perform a Valsalva maneuver. Left Atrium: The left atrial chamber size is normal. Right Ventricle: The right ventricular cavity size is normal. The right ventricular global systolic function is low normal. Right Atrium: The right atrium is mildly dilated. Aortic Valve: The aortic valve is trileaflet. The aortic valve leaflets are mildly thickened. There is no evidence of aortic regurgitation. There is no evidence of aortic stenosis. Mitral Valve: The mitral valve leaflets do not appear thickened. There is a trace of mitral regurgitation. There is no evidence of mitral stenosis. Tricuspid Valve: The tricuspid valve leaflets are normal. There is trace tricuspid regurgitation. Unable to estimate the right ventricular systolic pressure. There is no tricuspid stenosis. Pulmonic Valve: The pulmonic valve appears normal. There is a trace pulmonic regurgitation. There is no pulmonic stenosis. Pericardium: There is no significant pericardial effusion. Aorta: There is no dilatation of the ascending aorta. There is no dilatation of the aortic arch. The aortic root is normal in size. Pulmonary Artery: The main pulmonary artery appears normal. Venous: The inferior vena cava appears normal in size. There is a greater than 50% respiratory change in the inferior vena cava dimension. Conclusions The left ventricular chamber size is normal. Focal area on the mid anterior wall on short axis, apical 1/2-1/2 of anterior septum on 3 chamber view. The base of the inferior wall extending to the base of the lateral wall appears relatively hypokinetic. Post surgical hypokinesis of the interventricular septum is observed consistent with coronary artery bypass. The estimated ejection fraction is 40-45%. The right ventricular global systolic function is low normal. There is a trace of mitral regurgitation. There is trace tricuspid regurgitation. There is no significant pericardial effusion. Compared with limited study done 06/03/18, anterior hypokinesis more extensive, basilar inferior and lateral wall hypokinesis is new. EF has decreased mildly. RV has improved. Measurements Name Value Normal Range RVIDd (AP) 2D 3.1 cm (0.9 - 2.6) RVDdMajor (2D) 4.3 cm (2.2 - 4.4) RAd ISD 4CH 5.1 cm (3.4 - 4.9) RA (A4C)W 3.4 cm (2.9 - 4.6) IVSd (2D) 0.8 cm (0.6 - 1) LVPWd (2D) 0.9 cm (0.6 - 1) LVIDd (2D) 4.1 cm (3.6 - 5.4) LVIDs (2D) 2.7 cm - LV FS (2D) 34 % (25 - 45) Aortic Annulus 1.9 cm (1.4 - 2.6) Ao root diameter (2D) 3.1 cm (2.1 - 3.5) Ascending Ao 3.1 cm (2.1 - 3.4) Aortic arch 2 cm (1.8 - 3.4) LA dimension (AP) 2D 3 cm (2.3 - 3.8) LAd ISD 4CH 4.5 cm (2.9 - 5.3) LA ISD 4CH W 3.5 cm (2.5 - 4.5) Name Value Normal Range LA ESV BP (A/L) index 22 ml/m2 - Name Value Normal Range MV E-wave Vmax 0.7 m/sec - MV deceleration time 296 msec - MV A-wave Vmax 0.6 m/sec - MV E:A ratio 1.1 ratio - LV septal e' Vmax 0.05 m/sec - LV lateral e' Vmax 0.09 m/sec - LV E:e' septal ratio 14 ratio - LV E:e' lateral ratio 7.78 ratio - Name Value Normal Range AV Vmax 1.2 m/sec - AV VTI 22.2 cm - AV peak gradient 6 mmHg - AV mean gradient 3 mmHg - LVOT Vmax 1 m/sec - LVOT VTI 20.2 cm - LVOT peak gradient 4 mmHg - LVOT mean gradient 2 mmHg - LUCRECIA Vmax 0.9 m/sec - Name Value Normal Range IVC diameter 1.6 cm - Name Value Normal Range PV Vmax 0.7 m/sec - PV peak gradient 2 mmHg -
--- NOTE | 2018-06-04 12:47 | PN ---
Subjective Date of Service: 06/04/18 - CC: back pain, head ache, improved L neck/arm pain. Interval History: The patient's presenting CP has improved/resolved following intervention/ stents early this AM No SOB. Has a headache (on NTG gtt) and back pain just below his neck. Groin not bothersome to the patient. Has not been able to sleep. Nurses note oozing from cath site on groin. Medications Active Medications: Acetaminophen (Tylenol Tab*) 650 mg PO Q4H PRN PRN Reason: FEVER/PAIN Last Admin: 06/04/18 05:04 Dose: 650 mg Aspirin (Aspirin 81 Mg Chew Tab*) 81 mg PO DAILY [facility] Last Admin: 06/04/18 08:20 Dose: 81 mg Atorvastatin Calcium (Lipitor*) 80 mg PO BEDTIME [facility] Last Admin: 06/04/18 05:04 Dose: 80 mg Colchicine (Colcrys*) 0.6 mg PO BID [facility] Last Admin: 06/04/18 08:22 Dose: 0.6 mg Enoxaparin Sodium (Lovenox(*)) 70 mg SUBCUT Q12H [facility] Last Admin: 06/04/18 08:20 Dose: 70 mg Nitroglycerin/Dextrose (Nitroglycerin Drip*) 25,000 mcg in 250 mls @ 3 mls/hr IV .(Initial Rate) [facility]; Protocol Last Admin: 06/03/18 21:06 Dose: 3 mls/hr Metoprolol Tartrate (Lopressor Tab*) 50 mg PO BID [facility] Last Admin: 06/04/18 08:20 Dose: 50 mg Nitroglycerin (Nitroglycerin Tab 0.4 Mg*) 0.4 mg SL Q5M PRN PRN Reason: ANGINA Ondansetron HCl (Zofran Inj*) 4 mg IV Q6H PRN PRN Reason: NAUSEA Ticagrelor (Brilinta*) 90 mg PO BID [facility] Last Admin: 06/04/18 08:19 Dose: 90 mg Trazodone HCl (Desyrel Tab*) 75 mg PO BEDTIME PRN PRN Reason: SLEEP Last Admin: 06/04/18 08:19 Dose: 75 mg Objective Vital Signs: Temp Pulse Resp BP Pulse Ox 98.2 F 85 15 123/79 97 06/04/18 05:55 06/04/18 11:01 06/04/18 11:01 06/04/18 11:00 06/04/18 11:01 Oxygen Devices in Use Now: Nasal Cannula Appearance: Somewhat older gentleman lying nearly flat, no medical distress but appears uncomfortable. Eyes: No Scleral Icterus, PERRLA Ears/Nose/Mouth/Throat: Clear Oropharnyx, Mucous Membranes Moist Neck: NL Appearance and Movements; NL JVP, Trachea Midline, No Thyroid Enlargement, Masses Respiratory: - - mild decrease in breathsounds left base, no wheezes, rales or rhonci. Cardiovascular: RRR - soft systolic murmur at apex. Abdominal: NL Sounds; No Tenderness; No Distention, No Hepatosplenomegaly Extremities: No Edema - R groin w/o induration or hematoma. Non tender. Mild area of blood on dressing. Skin: No Rash or Ulcers Neurological: Alert and Oriented x 3 Lines/Tubes/Other Access: Clean, Dry and Intact Peripheral IV Laboratory Results: 06/04/18 05:07 06/04/18 05:07 INR (Anticoag Therapy) 1.14 (0.77-1.02) H 06/04/18 05:07 APTT 180.4 seconds (26.0-36.3) H* 06/04/18 05:07 Total Bilirubin 0.40 mg/dL (0.2-1.0) 06/04/18 05:07 AST 36 U/L (13-39) 06/04/18 05:07 ALT 11 U/L (7-52) 06/04/18 05:07 Alkaline Phosphatase 62 U/L (34-104) 06/04/18 05:07 CK-MB (CK-2) 27.9 ng/mL (0.6-6.3) H 06/04/18 10:32 B-Natriuretic Peptide 229 pg/mL (<=100) H 06/03/18 15:38 Total Protein 5.5 g/dL (6.4-8.9) L 06/04/18 05:07 Albumin 3.4 g/dL (3.2-5.2) 06/04/18 05:07 Globulin 2.1 g/dL (2-4) 06/04/18 05:07 Albumin/Globulin Ratio 1.6 (1-3) 06/04/18 05:07 Triglycerides 59 mg/dL 06/04/18 05:07 Cholesterol 100 mg/dL 06/04/18 05:07 LDL Cholesterol 49 mg/dL 06/04/18 05:07 HDL Cholesterol 38.8 mg/dL 06/04/18 05:07 TSH 1.20 mcIU/mL (0.34-5.60) 06/03/18 15:38 06/03/18 06/03/18 06/03/18 15:38 18:57 21:30 Troponin I 0.02 1.03 H* 3.23 H* 06/04/18 06/04/18 06/04/18 00:30 05:07 10:32 Troponin I 4.69 H* 7.16 H* 4.17 H* Diagnostic Imaging: Echo 06/04/18: anterior apical focal hypokinesis and area of hypokinesis at the base of the inferior lateral wall. Mild RV hypokinesis. EKG Data: ECG's today 0400 and 0700 approx reviewed, anterior T waves remain inverted. Most recent ECG shows mild ST elevation inferior leads, new c/w 0400. Assessment/Plan 68 yo male with SV CAD, extensive calcific stenosis in the LAD, diagonals and septal perferators off the LAD 2 weeks s/p CABG. Originally based on d/c summary thought he had MCLEOD to LAD and SVG to diagonal. Images I saw c/w SVG to Dx and free MCLEOD graft from SVG to LAD. Heavy thrombus seen in distal SVG and poor flow to LAD. The patient is now s/p stents to grafts (awaiting dictated report) with significant clinical improvement. ND: Due to post CABG thrombus, on lovenox, Brilinta, ASA (and plavix and UFH stopped). Will inform CT surgery at [facility] to coordinate care. Continue high dose statin. CM: Small bump in trops but EF moderately depressed. Continue current higher dose of metoprolol ACEI or ARB should be added as soon as felt OK with creatinine and BP. FOREMAN: NTG gtt likely etiology, cautious taper to off, will be getting tolerant to current dose. Back pain: Positional, but follow. Groin: Oozing not unexpected with above anticoagulation, observe. I think site looks very good. Nurses have saline bag on, OK to continue. Overall the patient remains at risk for recurrent angina based on the revasularization done+ muscogee disease, needs ICU monitoring and team discussions for follow up.
--- NOTE | 2018-06-04 16:57 | PN ---
Date of Service: 03/04/18 Critical Care Services: Patient has had an uneventful day. 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 Vital Signs: Temp Pulse Resp BP SpO2 FiO2 98.1 F 75 23 136/72 94 Physical Exam: Gen:Awake and comfortable Lungs:clear Cardiac: Reg rhythm No rub Extremities:No cyanosis or edema Fluid Balance (Past 24 Hours): 06/04/18 06:59 Intake Total 2969 Output Total 1800 Balance 1169 Weight 158 lb 15.253 oz Intake: IV Fluids 1560 NS (0.9%) 1560 Medicated IV 159 CC - Nitroglycerine/ 159 Tridil Oral 1250 Output: Urine 1800 Other: Estimated Void Date of Last Bowel Movement # Bowel Movements Estimated Stool Amount # Voids Labs: Laboratory Results - last 24 hr 06/03/18 06/03/18 06/03/18 15:27 15:38 15:38 WBC 9.8 RBC 3.88 L Hgb 11.3 L Hct 34 L MCV 87 MCH 29 MCHC 34 RDW 14 Plt Count 401 MPV 7.8 Neut % (Auto) 80.2 Lymph % (Auto) 7.4 L Cook % (Auto) 8.3 H Eos % (Auto) 3.3 Baso % (Auto) 0.8 Absolute Neuts (auto) 7.9 H Absolute Lymphs (auto) 0.7 L Absolute Monos (auto) 0.8 Absolute Eos (auto) 0.3 Absolute Basos (auto) 0.1 Absolute Nucleated RBC 0 Nucleated RBC % 0 ESR 46 H INR (Anticoag Therapy) 1.10 H APTT 34.8 POC Activ Clotting Time D-Dimer, Quantitative Sodium Potassium Chloride Carbon Dioxide Anion Gap BUN Creatinine Est GFR ( Amer) Est GFR (Non-Af Amer) BUN/Creatinine Ratio Glucose Calcium Total Bilirubin AST ALT Alkaline Phosphatase Total Creatine Kinase CK-MB (CK-2) Troponin I C-Reactive Protein Total Protein Albumin Globulin Albumin/Globulin Ratio Triglycerides Cholesterol LDL Cholesterol HDL Cholesterol TSH Urine Color Straw Urine Appearance Clear Urine pH 6.0 Ur Specific [place] 1.008 L Urine Protein Negative Urine Ketones Negative Urine Blood Negative Urine Nitrate Negative Urine Bilirubin Negative Urine Urobilinogen Negative Ur Leukocyte Esterase Negative Urine Glucose Negative 06/03/18 06/03/18 06/03/18 15:38 18:57 21:30 WBC RBC Hgb Hct MCV MCH MCHC RDW Plt Count MPV Neut % (Auto) Lymph % (Auto) Cook % (Auto) Eos % (Auto) Baso % (Auto) Absolute Neuts (auto) Absolute Lymphs (auto) Absolute Monos (auto) Absolute Eos (auto) Absolute Basos (auto) Absolute Nucleated RBC Nucleated RBC % ESR INR (Anticoag Therapy) APTT 33.6 POC Activ Clotting Time D-Dimer, Quantitative 449 H Sodium 135 Potassium 4.0 Chloride 101 Carbon Dioxide 27 Anion Gap 7 BUN 24 24 Creatinine 1.62 H 1.35 H Est GFR ( Amer) 51.5 63.6 Est GFR (Non-Af Amer) 42.6 52.6 BUN/Creatinine Ratio 14.8 Glucose 115 H Calcium 9.2 Total Bilirubin 0.30 AST 10 L ALT 10 Alkaline Phosphatase 74 Total Creatine Kinase 21 CK-MB (CK-2) 1.4 Troponin I 0.02 1.03 H* C-Reactive Protein 37.15 H Total Protein 6.3 L Albumin 3.9 Globulin 2.4 Albumin/Globulin Ratio 1.6 Triglycerides Cholesterol LDL Cholesterol HDL Cholesterol TSH 1.20 Urine Color Urine Appearance Urine pH Ur Specific [place] Urine Protein Urine Ketones Urine Blood Urine Nitrate Urine Bilirubin Urine Urobilinogen Ur Leukocyte Esterase Urine Glucose 06/03/18 06/03/18 06/04/18 21:30 21:30 00:30 WBC 8.5 RBC 3.64 L Hgb 10.7 L Hct 32 L MCV 87 MCH 29 MCHC 34 RDW 13 Plt Count 403 MPV 7.8 Neut % (Auto) 73.4 Lymph % (Auto) 10.9 L Cook % (Auto) 11.3 H Eos % (Auto) 3.9 Baso % (Auto) 0.5 Absolute Neuts (auto) 6.2 Absolute Lymphs (auto) 0.9 L Absolute Monos (auto) 1.0 H Absolute Eos (auto) 0.3 Absolute Basos (auto) 0 Absolute Nucleated RBC 0 Nucleated RBC % 0 ESR INR (Anticoag Therapy) APTT POC Activ Clotting Time D-Dimer, Quantitative Sodium Potassium Chloride Carbon Dioxide Anion Gap BUN 24 Creatinine 1.18 H Est GFR ( Amer) 74.3 Est GFR (Non-Af Amer) 61.4 BUN/Creatinine Ratio Glucose Calcium Total Bilirubin AST ALT Alkaline Phosphatase Total Creatine Kinase CK-MB (CK-2) Troponin I 3.23 H* 4.69 H* C-Reactive Protein Total Protein Albumin Globulin Albumin/Globulin Ratio Triglycerides Cholesterol LDL Cholesterol HDL Cholesterol TSH Urine Color Urine Appearance Urine pH Ur Specific [place] Urine Protein Urine Ketones Urine Blood Urine Nitrate Urine Bilirubin Urine Urobilinogen Ur Leukocyte Esterase Urine Glucose 06/04/18 06/04/18 06/04/18 01:44 02:15 02:31 WBC RBC Hgb Hct MCV MCH MCHC RDW Plt Count MPV Neut % (Auto) Lymph % (Auto) Cook % (Auto) Eos % (Auto) Baso % (Auto) Absolute Neuts (auto) Absolute Lymphs (auto) Absolute Monos (auto) Absolute Eos (auto) Absolute Basos (auto) Absolute Nucleated RBC Nucleated RBC % ESR INR (Anticoag Therapy) APTT POC Activ Clotting Time 164 213 326 D-Dimer, Quantitative Sodium Potassium Chloride Carbon Dioxide Anion Gap BUN Creatinine Est GFR ( Amer) Est GFR (Non-Af Amer) BUN/Creatinine Ratio Glucose Calcium Total Bilirubin AST ALT Alkaline Phosphatase Total Creatine Kinase CK-MB (CK-2) Troponin I C-Reactive Protein Total Protein Albumin Globulin Albumin/Globulin Ratio Triglycerides Cholesterol LDL Cholesterol HDL Cholesterol TSH Urine Color Urine Appearance Urine pH Ur Specific [place] Urine Protein Urine Ketones Urine Blood Urine Nitrate Urine Bilirubin Urine Urobilinogen Ur Leukocyte Esterase Urine Glucose 06/04/18 06/04/18 06/04/18 03:01 03:33 05:07 WBC RBC Hgb Hct MCV MCH MCHC RDW Plt Count MPV Neut % (Auto) Lymph % (Auto) Cook % (Auto) Eos % (Auto) Baso % (Auto) Absolute Neuts (auto) Absolute Lymphs (auto) Absolute Monos (auto) Absolute Eos (auto) Absolute Basos (auto) Absolute Nucleated RBC Nucleated RBC % ESR INR (Anticoag Therapy) APTT POC Activ Clotting Time 261 229 D-Dimer, Quantitative Sodium 136 Potassium 3.6 Chloride 105 Carbon Dioxide 24 Anion Gap 7 BUN 19 Creatinine 0.86 Est GFR ( Amer) 107.0 Est GFR (Non-Af Amer) 88.4 BUN/Creatinine Ratio 22.1 H Glucose 130 H Calcium 8.6 Total Bilirubin 0.40 AST 36 ALT 11 Alkaline Phosphatase 62 Total Creatine Kinase 210 CK-MB (CK-2) 32.2 H Troponin I 7.16 H* C-Reactive Protein Total Protein 5.5 L Albumin 3.4 Globulin 2.1 Albumin/Globulin Ratio 1.6 Triglycerides 59 Cholesterol 100 LDL Cholesterol 49 HDL Cholesterol 38.8 TSH Urine Color Urine Appearance Urine pH Ur Specific [place] Urine Protein Urine Ketones Urine Blood Urine Nitrate Urine Bilirubin Urine Urobilinogen Ur Leukocyte Esterase Urine Glucose 06/04/18 06/04/18 06/04/18 05:07 05:07 10:32 WBC 6.7 RBC 3.39 L Hgb 10.0 L Hct 30 L MCV 87 MCH 30 MCHC 34 RDW 14 Plt Count 348 MPV 8.0 Neut % (Auto) 72.2 Lymph % (Auto) 12.4 L Cook % (Auto) 10.3 H Eos % (Auto) 4.4 Baso % (Auto) 0.7 Absolute Neuts (auto) 4.9 Absolute Lymphs (auto) 0.8 L Absolute Monos (auto) 0.7 Absolute Eos (auto) 0.3 Absolute Basos (auto) 0 Absolute Nucleated RBC 0 Nucleated RBC % 0 ESR INR (Anticoag Therapy) 1.14 H APTT 180.4 H* POC Activ Clotting Time D-Dimer, Quantitative Sodium Potassium Chloride Carbon Dioxide Anion Gap BUN Creatinine Est GFR ( Amer) Est GFR (Non-Af Amer) BUN/Creatinine Ratio Glucose Calcium Total Bilirubin AST ALT Alkaline Phosphatase Total Creatine Kinase 183 CK-MB (CK-2) 27.9 H Troponin I 4.17 H* C-Reactive Protein Total Protein Albumin Globulin Albumin/Globulin Ratio Triglycerides Cholesterol LDL Cholesterol HDL Cholesterol TSH Urine Color Urine Appearance Urine pH Ur Specific [place] Urine Protein Urine Ketones Urine Blood Urine Nitrate Urine Bilirubin Urine Urobilinogen Ur Leukocyte Esterase Urine Glucose Studies: None today Nutrition: Oral diet Impression: Clinicallt Stable Plan: Continue present Rx regimen. Cardilogy to decide about trasfer for further management. Critical Care Time:
[2018-06-05 05:37] LABS: ABS Basophils 0 10^3/ul (0-0.2); ABS Eosinophils 0.3 10^3/ul (0-0.6); ABS Lymphocytes 0.7 10^3/ul (1.0-4.8); ABS Monocytes 0.6 10^3/ul (0-0.8); ABS Neutrophils 4.2 10^3/ul (1.5-7.7); ABS Nucleated RBC 0 10^3/ul; Hematocrit 30 % (42-52); Hemoglobin 10.1 g/dl (14.0-18.0); Lymphocyte % 12.7 % (25-47); Mean Corpuscular HGB Conc 34 g/dl (31-36); Mean Corpuscular Hemoglobin 30 pg (27-31); Mean Corpuscular Volume 87 fL (80-94); Mean Platelet Volume 7.9 fL (7.4-10.4); Nucleated Red Blood Cells % 0; Platelet Count 338 10^3/ul (150-450); Red Blood Count 3.42 10^6/ul (4.00-5.40); Red Cell Distribution Width 14 % (10.5-15); White Blood Count 5.8 10^3/ul (3.5-10.8)
[2018-06-05 05:53] LABS: EGFR Non-African American 94.8 (>60)
[2018-06-05] MEDS: Aspirin 81 mg CHEW TAB* 81 MG TAB.CHEW PO SCH (07:52)
[2018-06-05] MEDS: Ticagrelor* 90 MG TAB PO SCH (07:52)
[2018-06-05] MEDS: Metoprolol Tartrate TAB* 50 mg PO SCH (07:52)
[2018-06-05] MEDS: Colchicine* 0.6 MG TAB PO SCH (07:53)
[2018-06-05] MEDS: Enoxaparin(*) 80 MG/0.8 ML SYR SUBCUT SCH (07:53)
[2018-06-05 11:29] VITALS: BP 110/59
--- NOTE | 2018-06-06 17:21 | TRS ---
CC: Dr. Stepan Valle; Dr. Hudson * TRANSFER SUMMARY: DATE OF ADMISSION: 06/04/18 DATE OF TRANSFER: 06/05/18 INDICATION FOR TRANSFER: Coronary artery disease. The patient is a 68-year-old gentleman who recently underwent coronary artery bypass surgery at [facility] back on 05/16/18. The patient was admitted to the hospital on 05/15/18 to [facility], at that time he had an acute coronary syndrome. A cardiac catheterization at that time showed diffuse and significant disease to the left anterior descending artery with minimal disease to the left circumflex and right coronary artery. Up in [place], the patient had coronary bypass surgery, the intent was to have a MCLEOD to the LAD and a saphenous vein graft to the diagonal; however, the MCLEOD was adherent to the chest wall, thus the patient had a saphenous vein graft from the aorta to the diagonal vessel and then a graft from the saphenous vein graft to the LAD, which was an arterial graft from the MCLEOD. The patient was discharged from the hospital and readmitted to the hospital here on 06/03/18. The patient reportedly had developed a burning pain in his left neck radiating to his left arm. He said the pain was a 10/10, it radiated to his jaw and associated with nausea. The patient states that that was a pain different than his usual incisional pain from his bypass. The patient came to the emergency room and urgently went to the cardiac catheterization lab. At the cardiac catheterization lab, there was found to be a large thrombus from the saphenous vein graft all the way down to his diagonal vessel. His arterial conduit from the saphenous vein graft to the LAD was small and atretic. The patient received a stent to the distal saphenous vein graft and stabilized. The patient is being transferred to [facility] under the care of Dr. Valle for further evaluation of his coronary artery options. 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 PAST MEDICAL HISTORY: Significant for coronary artery disease as described above, hyperlipidemia, BPH, depression, herniated disk. PAST SURGICAL HISTORY: Pilonidal cyst only other than a recent bypass surgery. DISCHARGE MEDICATIONS: 1. Tylenol as directed. 2. Aspirin 325 a day. 3. Atorvastatin 80 mg a day. 4. Plavix 75 mg a day. 5. Lovenox 75 mg subcu q.12 hours. 6. Metoprolol XL 12.5 mg a day. 7. Nitroglycerin sublingual. 8. OxyContin. His outpatient medications were only: 1. Atorvastatin. 2. Metoprolol. 3. Aspirin. ALLERGIES: No known drug allergies. FAMILY HISTORY: Mother at 54 from coronary artery disease. SOCIAL HISTORY: He is . Nonsmoker. Rare alcohol. He works in real estate. REVIEW OF SYSTEMS: Positive for incisional pain. Positive for mild shortness of breath. Negative for fevers and chills. Negative for changes in weight. PHYSICAL EXAM: Height is 5 feet 8 inches tall, weight is 150 pounds. Temperature is afebrile, heart rate is 74, blood pressure 101/61, respiratory rate is 23. Carotids are 2+ without bruits. JVD is normal. Thyroid is normal. Cardiac Exam: S1, S2 without any murmurs, rubs, or gallops. Lungs are clear to auscultation. Extremities show no edema. The patient is awake, alert, and oriented. He moves all 4 extremities equally. LABORATORY STUDIES: White count 5.8, hemoglobin 10, hematocrit 30, platelet count 338. Chemistries within normal limits. BUN and creatinine are normal. Total cholesterol 100, LDL 49, HDL 38. IMPRESSION: This is a 68-year-old gentleman who was admitted to the hospital for acute coronary syndrome after his bypass surgery 2-1/2 weeks ago. His cardiac catheterization revealed significant disease to his saphenous vein graft and his arterial conduit. The patient received a stent to his saphenous vein graft. He is pain free currently. DISPOSITION: The patient will be transferred to [facility] under the care of Dr. Valle for further evaluation of his coronary arteries and potentially further intervention. His medications are discharge. The patient will follow up with Dr. Martinez upon returning to [place]. [id number]/[facility] #: [id number] [facility] CENTERRogerio
--- NOTE | 2018-06-08 06:28 | CATH ---
CC: Dr. Johnson; Alan Martinez DO; Dr. Valle, [facility] * STENT REPORT: DATE OF PROCEDURE: 06/04/18 - ROOM #ICU-04 PRIMARY CARE PHYSICIAN: Dr. Johnson. BUILDING ENERGY CONSULTANT: Alan Martinez DO PROCEDURES: Right common femoral artery access, MCLEOD angiography, saphenous vein graft angiography, bilateral selective coronary cineangiography. HISTORY: A 68-year-old male with complex severe LAD stenosis at recent cath followed by CABG with a saphenous vein graft to a diagonal, and a free MCLEOD graft from the proximal end of the vein graft to the mid LAD, now presenting with high lateral non-ST elevation infarct. He has developed renal insufficiency, hence LV gram was not planned, contrast volume was minimized. PROCEDURE ACCESS: Right common femoral artery sheath 6.5. DIAGNOSTIC CATHETERS: A 6F SHAHNAZ, 6FR4, 6FL4. Guiding catheter for vein graft intervention, 6FR4. WIRES: BMW 0.014, Mailman Super Support 0.014. MEDICATIONS: 1. IV nitroglycerin titrated. 2. IV Versed. 3. IV fentanyl. 4. Nitroglycerin 200 mcg intragraft. 5. Heparin 5000 units, 3000 units IV. 6. Brilinta 180 mg p.o. loading dose. 7. Double bolus IV Integrilin. After diagnostic angiography, the culprit saphenous vein graft lesion was approached with a 6FR4 guide. There was a large thrombus burden within the graft, however, there was no room for distal filter protection. Because of the acute ischemic setting, intervention was performed. The stenosis was crossed, and a 2.5 x 12 Synergy drug-eluting stent was advanced and because of distal poor visualization, was positioned with an injection of contrast straddling the site of the high-grade stenosis. It was deployed at 11 atmospheres 9 seconds, postdilated with a 2.25 x 12 NC balloon to 16 atmospheres 30 seconds. Subsequent injection demonstrated high-grade stenosis just beyond the stent, which in retrospect was presumably the anastomotic site and the tapering high- grade stenosis on the initial images represented thrombus in the distal portion of the vein graft. Hence, the just deployed stent was essentially free floating in the distal portion of the vein graft. I then attempted to advance a second 2.25 x 12 stent but it would not cross past the free floating stent. The wire was exchanged, advanced outside the free floating stent, and the 2.5 x 12 Synergy again was advanced but would not cross the anastomotic stenosis. A 2.25 x 12 Xience, however, did cross and was deployed, then postdilated with a 2.25 x 12 NC balloon 16 atmospheres at 30 seconds. Subsequently, efforts were made to pull the free floating stent more proximally, which were not successful. The stent was distorted. However, there was enough clearance between the distal end of the free floating stent and the anastomotic stenotic site stent, therefore a 3.5 x 12 Synergy drug-eluting stent was positioned adjacent to the free floating stent and deployed at 16 atmospheres for 30 seconds in order to crush the distorted stent between the 3.5 mm stent and the wall of the vein graft. During the procedure, a deep seating of the guide was required intermittently for support, fortunately there was no distal embolization in spite of the large thrombus burden in the graft. HEMODYNAMICS: Initial BP 89/54. During the procedure, IV nitroglycerin was progressively down titrated for blood pressure. Final BP 89/51, patient is chest pain free. ANGIOGRAPHY: RFA. Sheath entry is in segment 2. There is no stenosis. MCLEOD. The SHAHNAZ is moderate, is occluded a few centimeters from the origin at a site of surgical clips. Vein graft. The vein graft arises from the left side of the aorta, is large, with a very large thrombus burden with several areas of laminar thrombus. There is a 90 plus percent anastomotic stenosis, with SILKE II filling of the diagonal branch. The MCLEOD graft attached at the proximal end of the vein graft fills, mid portion has diffuse long up to 75% tubular stenosis, followed by approximately 75% distal anastomotic stenosis. The LAD fills retrograde back to competitive flow from the left main. The bypassed diagonal is essentially isolated from the LAD. There was no change after intragraft nitroglycerin. RCA. The RCA is large, dominant with luminal irregularity as before without significant stenosis, there are no right to left evident collaterals. Left main. The left main is normal. Circumflex. The circumflex is nondominant, is normal with a small first marginal, large second marginal, small posterolateral. LAD. The LAD is severely and diffusely proximally diseased as before with a long tubular 80% to 90% stenosis beginning essentially at the left main, it then supplies a small diagonal branch, then has high-grade stenosis followed by the bypassed diagonal which has competitive flow, the LAD beyond the diagonal fills via the free MCLEOD graft. After stent deployment, with positioning during a contrast injection covering the area of the high-grade stenosis and postdilatation, there is a residual high -grade stenosis distal to the stent. During attempts to cross the first and to deploy the second stent at the stenosis, the first stent became distorted. Strategy was then to crush it against the vein graft wall with stent placement within the graft. He received Brilinta and IV Integrilin because of the large thrombus burden. Lytics were not considered because of his recent bypass surgery. After stent deployment at the anastomotic stenosis and postdilatation , there was no significant residual stenosis, distal flow normalized, there was no evidence of embolization. The compressed first stent was pulled back slightly and then crushed against the wall of the graft with a 3.5 mm drug- eluting stent excluding it from the graft lumen, extra stent location was confirmed in multiple views with positioning of the excluded stent at the distal end of the 3.5 mm stent. CONCLUSION: 1. Single-vessel disease with severe saphenous vein graft distal stenosis with a very large thrombus burden 2-1/2 weeks post bypass, as well as moderately severe diffuse mid MCLEOD stenosis as well as a significant distal anastomotic stenosis, and high lateral infarct presentation. 2. High risk complex procedure because of large vein graft thrombus burden without any accompanying embolization. Distal filter wire position was not feasible. 3. Excellent angiographic result with drug-eluting stent placement at the vein graft to diagonal anastomosis, as well as successful crush of the first free floating stent against the wall of the vein graft with a 3.5 mm stent. 4. Angio-Seal right common femoral artery. At the end of the procedure, the patient was chest pain free, with stable hemodynamics and EKG. He will be referred to [facility] for management of the MCLEOD disease. [id number]/[facility] #: [id number] RICCO
== END 2018-06-05 12:00 | disposition short-term general hospital (02) | DRG 246 ==
LOC: ED 15:09 → MEDTELE 17:03 → ICU 21:04 → OBSVTOIN 06-04 09:00
PROVIDERS: ADMIT Internal Medicine; ATTEND Specialist
PROC: 3E073PZ Introduction of Platelet Inhibitor into Coronary Artery, Percutaneous Approach (ICD-10-PCS; 2018-06-04)
PROC: 4A023N7 Measurement of Cardiac Sampling and Pressure, Left Heart, Percutaneous Approach (ICD-10-PCS; 2018-06-04)
PROC: B21F1ZZ Fluoroscopy of Other Bypass Graft using Low Osmolar Contrast (ICD-10-PCS; 2018-06-04)
PROC: B2111ZZ Fluoroscopy of Multiple Coronary Arteries using Low Osmolar Contrast (ICD-10-PCS; 2018-06-04)
PROC: 027034Z Dilation of Coronary Artery, One Artery with Drug-eluting Intraluminal Device, Percutaneous Approach (ICD-10-PCS; principal; 2018-06-04 01:00)
DX: T82.868A Thrombosis due to vascular prosthetic devices, implants and grafts, initial encounter (principal); I22.2 Subsequent non-ST elevation (NSTEMI) myocardial infarction; I21.9 Acute myocardial infarction, unspecified; N17.9 Acute kidney failure, unspecified; J90 Pleural effusion, not elsewhere classified; T82.858A Stenosis of other vascular prosthetic devices, implants and grafts, initial encounter; I25.10 Atherosclerotic heart disease of native coronary artery without angina pectoris; G89.18 Other acute postprocedural pain; D64.9 Anemia, unspecified; G47.30 Sleep apnea, unspecified; M19.011 Primary osteoarthritis, right shoulder; F41.9 Anxiety disorder, unspecified; F32.9 Major depressive disorder, single episode, unspecified; E78.5 Hyperlipidemia, unspecified; I10 Essential (primary) hypertension; H26.9 Unspecified cataract; T39.395A Adverse effect of other nonsteroidal anti-inflammatory drugs [NSAID], initial encounter; N40.0 Benign prostatic hyperplasia without lower urinary tract symptoms; M10.9 Gout, unspecified; Z95.1 Presence of aortocoronary bypass graft; Z85.9 Personal history of malignant neoplasm, unspecified; Z72.89 Other problems related to lifestyle; Y92.9 Unspecified place or not applicable; Z82.49 Family history of ischemic heart disease and other diseases of the circulatory system; Z79.02 Long term (current) use of antithrombotics/antiplatelets; Z79.82 Long term (current) use of aspirin
CPT/HCPCS: 36415; 71045; 71275; 76775; 80053; 80061; 81003; 82550; 82553; 82565; 83605; 83880; 84443; 84484; 84520; 85025; 85347; 85379; 85610; 85652; 85730; 86140; 87641; 93005; 93306; 93455; 99156; 99157; 99284; A9270-GY; C1725; C1760; C1769; C1876; C1887; C9604-LD; G0378; J1327; J1644; J1650; J2250; J3010; J3490; Q9967

== ENCOUNTER 2018-08-29 08:38 | Emergency (ER) | payer OTHER ==
--- OUTSIDE RECORDS SUMMARY | 2018-08-29 08:43 | XMS REPORT | Continuity of Care Document ---
:1950 External Reference #:[id number] Author Name Loren Awad Care Team Providers Name Role Phone Nirali Johnson MD Primary Care Physician Unavailable Payers Date Identification Numbers Payment Provider Subscriber Effective: 2014 Policy Number: [id number] [employer] Number: [id number] [address] PayID: [id number] [place] [address] Advance Directives Description No Information Available Problems Date Description Provider Status Onset: 10/15/2014 Dyssomnia Liyah Heredia MD Active Onset: 10/15/2014 Insomnia Liyah Heredia MD Active Onset: 09/02/2017 Osteochondritis dissecans Dino Ramirez MD Active Family History Date Family Member(s) Observation Comments General Non Contributory : (age 76 Years) Father due to Complications from kidney surgery Father non-contributory Mother of heart attack at age 54 Siblings 2 Siblings alive and well Social History Type Date Description Comments Sex Unknown Marital Status Lives With spouse Occupation real estate sales ETOH Use Currently consumes 3 beers per week alcohol Tobacco Use Start: Unknown Patient has never smoked Recreational Drug Use Denies Drug Use Smoking Status Reviewed: 08/17/18 Patient has never smoked Exercise Type/Frequency Does not exercise Allergies, Adverse Reactions, Alerts Date Description Reaction Status Severity Comments 10/10/2013 NKDA Active 06/14/2018 Davion Inhibitors Cough, shortness of breath Active Medications Medication Date Status Form Strength Qnty SIG Indications Ordering Provider Losartan 06/14/ Active Tablets 25mg 90tabs 1 by Alan Castillo Potassium 2018 mouth Martinez, every day DO [facility] Metoprolol 06/14/ Active Tablets ER 25mg 90tabs 1 by Alan Castillo Succinate ER 2018 24HR mouth Martinez, every day DO [facility] Fish Oil / Active 1200mg 1 by Unknown 0000 mouth twice daily Iron / Active 325mg 1 by Unknown 0000 mouth daily Trazodone HCL / Active Tablets 50mg 1 to Unknown 0000 /2 tablets at bedtime as needed Vitamin D3 / Active 2000units Unknown 0000 1 tablet po daily Coq10 / Active Capsules 100mg take 1 by Unknown 0000 mouth daily Aspir-81 / Active Tablets DR 81mg 1 by Unknown 0000 mouth every day Atorvastatin / Active Tablets 40mg 90tabs 1 by Alan Castillo Calcium 0000 mouth Martinez, every day DO [facility] Brilinta / Active Tablets 90mg 180tab 1 tab by Alan Castillo 0000 s mouth Martinez, twice a DO [facility] day Fluocinolone / Active Cream 0.025% apply to Unknown Acetonide 0000 affected area twice daily as directed ( Takes only as needed ) Oxycodone HCL 08/18/ Hx Tablets 5mg 20tabs 1 tabs by [facility] 2018 - mouth James, 06/13/ every 4-6 MD 2018 hours as needed Ambien 10/14/ Hx 10mg at h.s. Unknown 2014 - prn 2017 Vitamin D 10/14/ Hx Capsules 2000Unit 1 by Unknown 2015 - mouth 08/16/ 2019 Melatonin 10/14/ Hx as Unknown 2015 - directed 2016 Penicillin 00/ Hx Tablets 500mg 40tabs four Unknown 0000 - times a 2013 Ergocalciferol / Hx Capsules [id number] 8caps 1 cap by Unknown 0000 - mouth 09/01/ 2016 week Acetaminophen 00/00/ Hx Tablets 1000mg prn Unknown 2017 Ibuprofen /00/ Hx Tablets 400mg prn Unknown - 2016 Amoxicillin /00/ Hx Unknown - 2013 Co Q 10 /00/ Hx Unknown - 2017 Ibuprofen /00/ Hx Unknown 2017 Tramadol HCL ER / Hx Tablets ER 100mg take 1 Unknown 0000 - 24HR tablet by 06/13/ mouth in 2018 the morning Ibuprofen 200 00/00/ Hx Tablets 200mg 400-600mg Unknown 0000 - every 6 1205/ hours as 2018 needed for pain. Zolpidem / Hx Tablets 10mg 1 tab by Unknown Tartrate 0000 - mouth 2017 night at bedtime as needed Lisinopril 00/ Hx Tablets 5mg 1 by Unknown 0000 - mouth every day 2018 Metoprolol / Hx Tablets 25mg 1 by Unknown Tartrate 0000 - mouth 06/14/ twice a 2018 day Immunizations Description No Information Available Vital Signs Date Vital Result Comment 08/17/2018 2:29pm Height 64 inches 5'4" Weight 170.00 lb with shoes Heart Rate 70 /min BP Systolic Sitting 90 mmHg Lue reg cuff BP Diastolic Sitting 60 mmHg Lue reg cuff BP Systolic Standing 104 mmHg Lue reg cuff BP Diastolic Standing 64 mmHg Lue reg cuff Respiratory Rate 17 /min BMI (Body Mass Index) 29.2 kg/m2 Ejection Fraction 60% date 06/06/18 echo 06/14/2018 2:11pm Height 64 inches 5'4" Heart Rate 74 /min reg BP Systolic Sitting 110 mmHg LA reg cuff BP Diastolic Sitting 65 mmHg LA reg cuff BP Systolic Standing 110 mmHg LA reg cuff BP Diastolic Standing 70 mmHg LA reg cuff Respiratory Rate 18 /min 12/06/2017 11:42am Height 64 inches 5'4" Weight 165.00 lb Heart Rate 66 /min Respiratory Rate 16 /min Pain Level 8 BMI (Body Mass Index) 28.3 kg/m2 10/24/2017 11:33am Height 64 inches 5'4" Weight 165.00 lb Heart Rate 68 /min Respiratory Rate 16 /min Pain Level 5 BMI (Body Mass Index) 28.3 kg/m2 09/26/2017 11:32am Height 64 inches 5'4" Weight 165.00 lb BP Systolic 130 mmHg BP Diastolic 70 mmHg Respiratory Rate 16 /min Body Temperature 97.0 F Pain Level 4 BMI (Body Mass Index) 28.3 kg/m2 09/02/2017 1:23pm Height 64 inches 5'4" Weight 165.00 lb BP Systolic 122 mmHg BP Diastolic 74 mmHg Respiratory Rate 16 /min Body Temperature 96.3 F Pain Level 1 BMI (Body Mass Index) 28.3 kg/m2 08/22/2017 9:55am Height 64 inches 5'4" Weight 165.00 lb BP Systolic 148 mmHg BP Diastolic 88 mmHg Respiratory Rate 17 /min Body Temperature 96.7 F Pain Level 5 BMI (Body Mass Index) 28.3 kg/m2 08/05/2017 1:01pm Height 64 inches 5'4" Weight 165.00 lb BP Systolic 126 mmHg BP Diastolic 74 mmHg Respiratory Rate 16 /min Body Temperature 97.8 F Pain Level 2 BMI (Body Mass Index) 28.3 kg/m2 07/28/2017 9:44am Heart Rate 55 /min BP Systolic Sitting 108 mmHg BP Diastolic Sitting 68 mmHg Body Temperature 96.7 F 07/01/2017 1:50pm Height 64 inches 5'4" Weight 160.00 lb Heart Rate 72 /min Respiratory Rate 14 /min Body Temperature 98.5 F Pain Level 4 BMI (Body Mass Index) 27.5 kg/m2 12/17/2014 2:52pm Height 64 inches 5'4" Weight 160.00 lb Heart Rate 58 /min BP Systolic Sitting 118 mmHg BP Diastolic Sitting 68 mmHg O2 % BldC Oximetry 97 % BMI (Body Mass Index) 27.5 kg/m2 Neck Circumference in inches 14 10/15/2014 11:56am Height 64 inches 5'4" Weight 165.00 lb Heart Rate 63 /min BP Systolic Sitting 132 mmHg BP Diastolic Sitting 62 mmHg Respiratory Rate 18 /min Body Temperature 97.0 F O2 % BldC Oximetry 97 % BMI (Body Mass Index) 28.3 kg/m2 Neck Circumference in inches 14 01/24/2014 3:07pm Height 64 inches 5'4" Weight 150.00 lb Heart Rate 60 /min BMI (Body Mass Index) 25.7 kg/m2 12/28/2013 2:41pm Height 64 inches 5'4" Weight 155.00 lb Pain Level 2 BMI (Body Mass Index) 26.6 kg/m2 12/04/2013 2:21pm Height 64 inches 5'4" Weight 155.00 lb Heart Rate 65 /min BP Systolic 117 mmHg BP Diastolic 71 mmHg BMI (Body Mass Index) 26.6 kg/m2 11/02/2013 11:30am Height 64 inches 5'4" Weight 160.00 lb Heart Rate 56 /min BP Systolic 129 mmHg BP Diastolic 82 mmHg BMI (Body Mass Index) 27.5 kg/m2 10/10/2013 2:52pm Height 64 inches 5'4" Weight 160.00 lb Heart Rate 67 /min BP Systolic 106 mmHg BP Diastolic 69 mmHg BMI (Body Mass Index) 27.5 kg/m2 Results Test Date Facility Test Result H/L Range Note Lipid Profile 06/16/2018 [facility] Triglycerides 75 mg/dL 1 (Trig/Chol/HDL) [place] [address] [phone] Cholesterol 118 mg/dL 2 HDL Cholesterol 41.8 mg/dL 3 LDL Cholesterol 61 mg/dL 4 CBC No Diff 06/14/2018 [facility] White Blood 10.1 10^3/uL N 3.5-10.8 [facility] [place] [address] [phone] Red Blood Count 4.25 10^6/uL N 4.00-5.40 Hemoglobin 12.1 g/dL Low 14.0-18.0 Hematocrit 37 % Low 42-52 Mean Corpuscular Volume 86 fL N 80-94 Mean Corpuscular Hemoglobin 29 pg N 27-31 Mean Corpuscular HGB Conc 33 g/dL N 31-36 Red Cell Distribution Width 14 % N 10.5-15 Platelet Count 316 10^3/uL N 150-450 Mean Platelet Volume 8.6 fL N 7.4-10.4 Basic Metabolic Panel 06/14/2018 [facility] Sodium 137 mmol/L N 135-145 [place] [address] [phone] Potassium 4.2 mmol/L N 3.5-5.0 Chloride 100 mmol/L Low 101-111 Co2 Carbon Dioxide 29 mmol/L N 22-32 Anion Gap 8 mmol/L N 2-11 Glucose 96 mg/dL N 70-100 Blood Urea Nitrogen 14 mg/dL N 6-24 Creatinine 0.99 mg/dL N 0.67-1.17 BUN/Creatinine Ratio 14.1 N 8-20 Calcium 9.6 mg/dL N 8.6-10.3 Egfr Non- 75.2 >60 Egfr 91.0 >60 5 Laboratory 08/18/2017 [facility] Hepatitis C Nonreactive Nonreactive test finding [address] [place] [address] Ref [phone] Laboratory 08/17/2017 [facility] Denovo NT SEE RESULTS 6, 7 test finding [address] [place] <[place] [address] NOTE> [phone] Tisseel SEE RESULTS [facility] <SEE NOTE> 8 Order 12/17/2014 Sleep Lab - [facility] Sleep Study Cpap [address] [place] [address] [phone] Surgical Pathology 12/17/2013 [facility] S RUN DATE: [address] [place] [address] NOTE> [phone] 1 Desirable: <150 Borderline High: 150-199 High: 200-499 Very High: >500 2 Desirable: <200 Borderline High: 200-239 High: >239 3 Low: <40 Desirable: 40-60 High: >60 4 Desirable: <100 Near Optimal: 100-129 Borderline High: 130-159 High: 160-189 Very High: >189 5 Because ethnic data is not always readily [...] 15-29 5 Kidney failure <15 (or dialysis) 6 OSTEOCHONDRITIS DISSECANS, LEFT ANKLE AND JOINTS O 7 SEE RESULTS BELOW [id number] DENOVO NT TRANSFUSED 08/18/17 0710 8 SEE RESULTS BELOW [id number] TISSEEL TRANSFUSED 08/18/17 0742 9 CPAP titration study 10 RUN DATE: 12/19/13 [facility] LAB LIVE PAGE 1 RUN TIME: [address] [place], [place] [address] Specimen Inquiry Name: CHRIS IVAN : [address]: Juan Lozano MD Acct: [id number] Unit: [id number] AGE: 63 Location: OR Re12/17/13 SEX: M Status: REG SDC SPEC: [id number] FLO: 12/17/13- [facility] DR: Juan Lozano MD REQ: [id number] RECD: 12/17/136 STATUS: SOUT _ ORDERED: LEVEL III FINAL DIAGNOSIS Ankle, left, shavings: Fragments of hyperplastic synovium with fibrosis and neovascularization and fragments of articular cartilage with degenerative features. PRE-OPERATIVE DIAGNOSIS Left ankle osteochondritis dessicans lesion GROSS DESCRIPTION The specimen is received in formalin labeled Chris Ivan, Shavings Left Ankle, and consists of a 2.4 x 1.3 x 0.4 cm. aggregate of yellow and white tissue fragments. Manager Asset sections, one cassette. MICROSCOPIC DESCRIPTION Signed (signature on file) Lucas Cardozo MD [id number] END OF REPORT * ML=Testing performed at Main Lab DEPARTMENT OF PATHOLOGY, [address] [place] [address] Lucas Cardozo M.D. Director [facility] # [id number] Procedures Date Code Description Status 06/14/2018 53086 EKG Tracing & Interpretation Completed 06/04/2018 54442 Coronary Angiography With Catheter Placement In Bpyass Completed Grafts 06/04/2018 29163 ECHO Transthorasic Realtime 2D W Doppler & Color Flow Hosp Completed 06/04/2018 65400 EKG, Interpretation Only Completed 06/04/2018 53366 Revascularization Acute Total/Subtotal Occlusion Completed 06/03/2018 50264 EKG, Interpretation Only Completed 05/15/2018 68670 Left Heart Cath. Incl S/I Coronaries, Angio S/I V Gram If Completed Done 08/22/2017 81928 Short Leg Cast Completed 08/18/2017 29489 Arthoscopy Ankle Excision Osteochondral Defect Completed 08/18/2017 33244 Arthoscopy Ankle Excision Osteochondral Defect Completed 08/18/2017 92943 Arthoscopy Ankle Excision Osteochondral Defect Completed 08/18/2017 76530 Arthroscopy Ankle Debridement Extensive Completed 08/18/2017 99625 Arthroscopy Ankle Debridement Extensive Completed 08/18/2017 25057 Arthroscopy Ankle Debridement Extensive Completed 11/19/2014 23774 Polysomnography Sleep Staging 4+ Parameters Completed 12/17/2013 47505 Arthroscopy Ankle Debridement Limited Completed 12/17/2013 30766 Arthroscopy Ankle Debridement Limited Completed 10/10/2013 89848 Rad Exam; Ankle Limited Completed 11/15/2006 09611 EKG, Interpretation Only Completed 11/15/2006 01645 EKG, Interpretation Only Completed Encounters Type Date Location Provider Dx Diagnosis Office Visit 06/14/2018 [facility] Alan Martinez, I10 Essential ( primary) 2:20p Of [place] Steward DO FACC hypertension R06.02 Shortness of breath R07.89 Other chest pain R53.83 Other fatigue I25.2 Old myocardial infarction F32.89 Other specified depressive episodes I25.10 Athscl heart disease of [place] coronary artery w/o ang pctrs Z95.1 Presence of aortocoronary bypass graft D64.9 Anemia, unspecified Office Visit 06/05/2018 3:59p [facility] Ulysses Kimble T82.868D Thrombosis due Of Lucas Forman M.D. to vascular prosth dev/grft, subs Z95.5 Presence of coronary angioplasty implant and graft Office Visit 06/04/2018 3:07p [facility] Bina Flaherty, Z95.5 Presence of Of Lucas Leon coronary angioplasty implant and graft I25.2 Old myocardial infarction R07.9 Chest pain, unspecified Office Visit 06/04/2018 10:31a Intensivists Naveed Martinez, R51 Headache M.D. Office Visit 06/03/2018 3:05p [facility] Bina Flaherty, R07.9 Chest pain, Of Lucas Morales.Lamin unspecified R79.89 Other specified abnormal findings of blood chemistry Z95.1 Presence of aortocoronary bypass graft R68.84 Jaw pain Office Visit 06/03/2018 [facility] Romel R07.9 Chest pain, 10:31a Assoc,pc Evaristo, N.P. unspecified Hospitalists I25.10 Athscl heart disease of [place] coronary artery w/o ang pctrs E78.5 Hyperlipidemia, unspecified I10 Essential (primary) hypertension N17.9 Acute kidney failure, unspecified Office Visit 05/15/2018 3:38p [facility] Naveed Cameron, I25.10 Athscl heart Of [place] Steward AT [facility] M.Lamin, FACC, disease of FSCAI [place] coronary artery w/o ang pctrs R94.31 Abnormal electrocardiogram [ECG] [EKG] R07.9 Chest pain, unspecified Office Visit 05/15/2018 [facility] Martha R07.9 Chest pain, 8:48a Assoc,pc Gage, SYED unspecified Hospitalists R97.20 Elevated prostate specific antigen [PSA] Office Visit 05/14/2018 8:48a [facility] Tania Sanchez R07.9 Chest pain , Assoc,pc unspecified Hospitalists N40.0 Benign prostatic hyperplasia without lower urinry tract symp E55.9 Vitamin D deficiency, unspecified G47.00 Insomnia, unspecified Office Visit 12/06/2017 [facility]opedic Dino James, M93.272 Osteochondritis 11:30a Services Of [place] ankle C.M.A. and joints of left foot Office Visit 08/05/2017 Orthopedic Dino Ramirez M93.272 Osteochondritis 1:00p Services [facility] [place] C.M.A. and joints of left foot Office Visit 07/28/2017 Orthopedic Juan M93.272 Osteochondritis 9:30a Services Of Edward Lozano l ankle C.M.A. and joints of left foot Office Visit 07/01/2017 Orthopedic Juan M93.272 Osteochondritis 1:00p Services Of Edward Lozano l ankle C.M.A. and joints of left foot Office Visit 12/17/2014 [facility] And [place] 327.23 Obstructive Sleep 3:00p Sleep Services TERESSA Voss, Apnea Adult & Of [place] Steward RN, [facility]- Pediatric 780.59 Sleep Disturbances Other Office Visit 10/15/2014 11:30a Pulmonology And Liyah 780.59 Sleep Disturbances Sleep Services Of MD Giovanna Other [facility] 780.52 Insomnia Unspecified Office Visit 11/02/2013 Orthopedic Juan 732.7 Osteochondritis 11:15a Services Of Edward Lozano C.M.A. Office Visit 10/10/2013 Orthopedic Juan 732.7 Osteochondritis 2:45p Services Of Edward Lozano C.M.A. Plan of Treatment 08/17/2018 - Alan Mratinez, DO FACCI25.2 Old myocardial infarctionComments:If you continue to do well, we will decrease the brilinta dose from 90 mg twice a day to 60 mg twicea day this June.Follow up:f/u early June 2019I25.10 Atherosclerotic heart disease of [place] coronary artery with
[2018-08-29 08:59] VITALS: BP 110/68
[2018-08-29] MEDS ORDERED: Phenylephrine 1% NASAL* 15 ML BOT RIGHT NARE ONE (09:42)
--- NOTE | 2018-08-29 10:32 | UC ---
Epistaxis Nasal HPI - HPI Summary HPI Summary: PATIENT HAS BEEN ON [place] FOR ABOUT 4 MONTHS. FOR THE PAST COUPLE OF MONTHS SINCE THE COLD WEATHER STARTED HAS HAD SPECKS OF BLOOD IN NASAL MUCUS WHEN HE BLOWS HIS NOSE. HAS DISCUSSED THIS WITH HIS PULP PRESS TENDER WHO ATTRIBUTED THIS TO A COMBINATION OF THE ANTICOAGULATION WELL THE DRY WINTER AIR. TODAY PATIENT BLEW HIS NOSE AND HAD IMMEDIATE HEAVY BLEEDING OUT HIS RIGHT NARIS. WAS STARTLED WITH THE AMOUNT OF BLOOD SO IMMEDIATELY CAME HERE TO THE . BY THE TIME HE ARRIVED THE BLEEDING HAD SLOWED SIGNIFICANTLY WITH PRESSURE. HE DENIES CHEST PAIN, SHORTNESS OF BREATH, NAUSEA, PALPITATIONS. DOES NOT FEEL FAINT OR DIZZY. NO BLEEDING FROM ANYWHERE ELSE. - History of Current Complaint Chief Complaint: UCCardiac Stated Complaint: NOSE BLEED Time Seen by Provider: 08/29/18 09:28 Hx Obtained From: Patient, Family/Ground Support Equipment Fitter - Onset/Duration: Sudden Onset, Lasting Minutes, Still Present - BUT IMPROVED Timing: Constant Severity Initially: Moderate Severity Currently: Mild Pain Intensity: 0 Pain Scale Used: 0-10 Numeric Alleviating Factor(s): Pressure Related Hx: Anticoagulants - Allergies/Home Medications Allergies/Adverse Reactions: Allergies Allergy/AdvReac Type Severity Reaction Status Date / Time lisinopril Allergy Coughing Verified 08/29/18 08:58 Home Medications: Home Medications Fluocinolone Acetonide 15 gm TP DAILY PRN 08/29/18 [History Confirmed 08/29/18] Losartan TAB* [Cozaar TAB*] 25 mg PO DAILY 08/29/18 [History Confirmed 08/29/18] Ticagrelor* [Brilinta 90 MG*] 90 mg PO BID 08/29/18 [History Confirmed 08/29/18] PMH/Surg Hx/FS Hx/Imm Hx Cardiovascular History: Cardiac Disease - STENT, CABG, Hypertension Other History Of: Negative For: HIV, Hepatitis B, Hepatitis C, Anticoagulant Therapy - Surgical History Surgical History: Yes Surgery Procedure, Year, and Place: 07/1971 - FX'D Lt ANKLE. 1999- ARTHROSCOPIC - Lt ANKLE. 1964 & PILONIDAL CYST REMOVED. 12/2013 ARTHROSCOPIC LEFT ANKLE. 2018 ankle surgery. double cardiac bipass, with stents - Family History Known Family History: Positive: None Negative: Cardiac Disease, Hypertension, Diabetes - Social History Alcohol Use: Occasionally Alcohol Amount: 6 weekly-BEER Substance Use Type: None Smoking Status (MU): Never Smoked Tobacco - Immunization History Most Recent Influenza Vaccination: NO, states it made him sick last time he got it Review of Systems All Other Systems Reviewed And Are Negative: Yes Constitutional: Positive: Negative Eyes: Positive: Other - RIGHT SIDED NOSEBLEED Respiratory: Positive: Negative Cardiovascular: Positive: Negative Gastrointestinal: Positive: Negative Physical Exam Triage Information Reviewed: Yes Appearance: Well-Appearing, No Pain Distress, Well-Nourished Vital Signs: Initial Vital Signs Temp 96.7 F 08/29/18 08:43 Pulse 78 08/29/18 08:43 Resp 18 08/29/18 08:43 BP 110/68 08/29/18 08:43 Pulse Ox 100 08/29/18 08:43 Vital Signs Reviewed: Yes Eyes: Positive: Conjunctiva Clear ENT: Positive: Hearing grossly normal, Pharynx normal, TMs normal, Other - BLOOD OOZING SLOWLY FROM RIGHT NARIS MEDIALLY. NO HEMATOMA Neck: Positive: Supple, Nontender, No Lymphadenopathy Respiratory Exam: Normal Cardiovascular Exam: Normal Abdomen Description: Positive: Soft Musculoskeletal: Positive: No Edema Neurological: Positive: Alert Psychological: Positive: Age Appropriate Behavior Skin: Negative: Rashes Re-Evaluation - Re-Evaluation First Eval Re-Evaluation Time: 10:00 - BLEEDING ALMOST STOPPED AFTER CARLEY-SYNEPHRINE AND CONTINUED DIRECT PRESSURE Change: Improved Epistaxis Nasal Course/Dx - Course Course Of Treatment: NOSEBLEED HAD SLOWED SIGNIFICANTLY BY THE TIME PT ARRIVED HERE IN . APPLIED CARLEY-SYNEPHRINE AND HELD PRESSURE AND BLEEDING STOPPED. PT ADVISED TO F/U WITH CARDIOLOGY TO DISCUSS ANTICOAGULATION IF HE HAS RECURRENT BLEEDS. ENT F/U IF DESIRED. NO LABS TODAY. PT ASYMPTOMATIC. - Differential Dx/Diagnosis Provider Diagnosis: Epistaxis Discharge - Sign-Out/Discharge Documenting (check all that apply): Patient Departure All imaging exams completed and their final reports reviewed: No Studies - Discharge Plan Condition: Stable Disposition: HOME Patient Education Materials: Nosebleed (ED) Referrals: Liu Hernandes MD [Medical Doctor] - If Needed Nirali Johnson MD [Primary Care Provider] - If Needed Additional Instructions: YOUR NOSEBLEED IS LIKELY DUE TO A COMBINATION OF YOUR BLOOD THINNER AND VIGOROUS NOSE BLOWING AND DRY WINTER AIR. IT HAS ESSENTIALLY STOPPED HERE WITH DIRECT PRESSURE AND TOPICAL CARLEY-SYNEPHRINE. USE NASAL SALINE AND VASELINE TO KEEP YOUR MUCUS MEMBRANES LUBRICATED. AVOID STRENUOUS PHYSICAL ACTIVITY AND NOSE BLOWING FOR SEVERAL WEEKS. IF YOU HAVE RECURRENT NOSEBLEEDS OR UNUSUAL BLEEDING FROM ANYWHERE ELSE DISCUSS YOUR BLOOD THINNER WITH YOUR PULP PRESS TENDER. IF YOU HAVE A NOSEBLEED THAT DOES NOT STOP WITH DIRECT PRESSURE GO TO THE ER OR FOLLOW-UP WITH ENT. - Billing Disposition and Condition Condition: STABLE Disposition: Home
== END 2018-08-29 10:23 | disposition home or self-care (01) ==
LOC: UCEAST 08:38
DX: R04.0 Epistaxis (principal); I10 Essential (primary) hypertension; Z95.1 Presence of aortocoronary bypass graft; Z88.8 Allergy status to other drugs, medicaments and biological substances
CPT/HCPCS: 99212; A9270-GY; G0463

== ENCOUNTER 2019-02-17 10:48 | Emergency (ER) | payer OTHER ==
[2019-02-17 10:55] VITALS: BP 116/63
--- NOTE | 2019-02-17 11:59 | UC ---
Skin Complaint HPI - HPI Summary HPI Summary: 69-year-old male comes in with a chief complaint of redness and swelling and pain of the right great toe at the base of the toenail. Started several days ago. Has been soaking it it's getting worse. Is tender to palpation. No fevers or chills feels well otherwise. - History of Current Complaint Chief Complaint: UCLowerExtremity Time Seen by Provider: 02/17/19 11:47 Stated Complaint: FOOT COMPLAINT Pain Intensity: 9 - Allergy/Home Medications Allergies/Adverse Reactions: Allergies Allergy/AdvReac Type Severity Reaction Status Date / Time lisinopril Allergy Coughing Verified 02/17/19 10:55 PMH/Surg Hx/FS Hx/Imm Hx Previously Healthy: Yes Endocrine History: Dyslipidemia Cardiovascular History: Hypertension Other History Of: Negative For: HIV, Hepatitis B, Hepatitis C, Anticoagulant Therapy - Surgical History Surgical History: Yes Surgery Procedure, Year, and Place: 07/1971 - FX'D Lt ANKLE. 1999- ARTHROSCOPIC - Lt ANKLE. 1964 & PILONIDAL CYST REMOVED. 12/2013 ARTHROSCOPIC LEFT ANKLE. 2018 ankle surgery. double cardiac bipass, with stents - Family History Known Family History: Positive: None Negative: Cardiac Disease, Hypertension, Diabetes - Social History Alcohol Use: Weekly Alcohol Amount: 6 weekly-BEER Substance Use Type: None Smoking Status (MU): Never Smoked Tobacco - Immunization History Most Recent Influenza Vaccination: NO, states it made him sick last time he got it Review of Systems All Other Systems Reviewed And Are Negative: Yes Constitutional: Positive: Negative Skin: Positive: Other - SEE HPI Eyes: Positive: Negative ENT: Positive: Negative Respiratory: Positive: Negative Cardiovascular: Positive: Negative Gastrointestinal: Positive: Negative Motor: Positive: Negative Neurovascular: Positive: Negative Musculoskeletal: Positive: Negative Neurological: Positive: Negative Psychological: Positive: Negative Is Patient Immunocompromised?: No Physical Exam Triage Information Reviewed: Yes Appearance: Well-Appearing, No Pain Distress, Well-Nourished Vital Signs: Initial Vital Signs Temp 97.6 F 02/17/19 10:51 Pulse 60 02/17/19 10:51 Resp 18 02/17/19 10:51 BP 116/63 02/17/19 10:51 Pulse Ox 99 02/17/19 10:51 Vital Signs Reviewed: Yes Eye Exam: Normal Eyes: Positive: Conjunctiva Clear Neck: Positive: Supple Respiratory: Positive: No respiratory distress Musculoskeletal: Positive: Strength Intact, ROM Intact Neurological: Positive: Alert Psychological: Positive: Age Appropriate Behavior Skin: Positive: Other - At the base of the right great toenail is some swelling and erythema. There is no drainage. Is not obvious that there is enough fluctuance for incision and drainage. No streaking. Toe is full range of motion normal sensation normal capillary refill. Course/Dx - Diagnoses Provider Diagnosis: Paronychia of great toe, right Discharge - Sign-Out/Discharge Documenting (check all that apply): Patient Departure All imaging exams completed and their final reports reviewed: No Studies - Discharge Plan Condition: Stable Disposition: HOME Prescriptions: Cephalexin CAP* [Keflex CAP*] 500 mg PO QID #40 cap Patient Education Materials: Paronychia (ED) Referrals: Nirali Johnson MD [Primary Care Provider] - Nini Green DPM [Doctor of Podiatric Medicine] - Mejia Fernandez DPM [Doctor of Podiatric Medicine] - Additional Instructions: FOLLOW UP WITH PODIATRY OR YOUR PRIMARY CARE DOCTOR IF NOT COMPLETELY IMPROVED. GET RECHECKED SOONER IF YOUR CONDITION WORSENS OR ANY QUESTIONS OR CONCERNS. - Billing Disposition and Condition Condition: STABLE Disposition: Home
--- OUTSIDE RECORDS SUMMARY | 2019-02-17 14:59 | XMS REPORT | Continuity of Care Document ---
:1950 External Reference #:[id number] Author Name Nirali Johnson M.D. Address [address] [place] [address] Care Team Providers Name Role Phone Nirali Johnson - Family Medicine Care Team Information Director Of Media [phone] Salbador Albrecht - Urology Care Team Information Director Of Media [phone] Juan Lozano - Orthopaedic Surgery Care Team Information Director Of Media [facility] Care Team Information Director Of Media [phone] lymphedema - Physical Therapist Problems Active Problems Provider Date Deficiency anemias Sugra Gonzalez M.D. Onset: 05/31/2011 Insomnia Sugar Gonzalez M.D. Onset: 05/31/2011 Benign prostatic hypertrophy without Nirali Johnson M.D. 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 Onset: 12/22/2018 Angina pectoris Nirali Johnson M.D. Onset: 05/03/2018 Impaired fasting glycaemia Nirali Johnson M.D. Onset: 10/23/2015 Vitamin D deficiency Nirali Johnson M.D. Onset: 09/20/2013 Mood disorder Nirali Johnson M.D. Onset: 01/05/2013 Social History Type Date Description Comments Sex Unknown Tobacco Use Start: Unknown Never Smoked Cigarettes Smoking Status Reviewed: 12/22/18 Never Smoked Cigarettes ETOH Use social 2-3 beers once a week. Tobacco Use Start: Unknown Patient has never smoked Allergies, Adverse Reactions, Alerts Active Allergies Reaction Severity Comments Date Seasonal 12/11/2015 Prevnar 13 bad reaction 05/25/2018 Lisinopril Cough 08/18/2018 Inactive Allergies NKDA 03/29/2011 Medications Active Medications SIG Qnty Indications Ordering Date Provider Trazodone HCL take one/half to 60tabs G47.09 Nirali L. 07/06/2017 50mg two tablets by Edward Johnson Tablets mouth at bedtime as needed for sleep Fluocinolone apply to the 30units Nirali Gonzalez 10/23/2016 Acetonide affected area Edward Johnson 0.025% Cream nightly as directed Iron 1 by mouth every Nirali Lisa 10/05/2016 325(65Fe) mg day Edward Johnson Tablets Synalar Cream .025% with lubriderm 120cc L21.8 Matt Ellington, 2015 60cc Compounded With cream 60cc apply Edward Lubriderm Cream nightly to affected area Co Q-10 qd Unknown 100mg Capsules Metoprolol Succinate 1 tabs qd Unknown ER 25mg Tablets ER 24HR Aspirin Childrens 1 by mouth every Unknown 81mg day Chewtabs Atorvastatin Calcium 1 by mouth every Unknown day 40mg Tablets Losartan Potassium 1 by mouth every Unknown 25mg day Tablets Brilinta 1 by mouth twice Unknown 90mg Tablets a day Fish Oil 2 by mouth every Unknown 1200mg day Capsules DR Vitamin D-3 2 by mouth every Unknown 1000Unit day Capsules History Medications Amoxicillin 1 tab twice a 20tabs J06.9 Nirali Gonzalez 10/18/2018 - 875mg day x 10 days Edward Johnson 12/22/2018 Tablets Acetaminophen-Codein 1-2 by mouth at 20tabs J06.9 Nirali Gonzalez 10/18/2018 - e #3 at bedtime for Edward Johnson 12/22/2018 300-30mg Tablets pain/cough Immunizations CPT Code Status Date Vaccine Lot # [id number] Given 12/22/2018 Tetanus And Diptheria Adult Preservative Free [id number] Given 10/02/2015 Pneumococcal Conjugate Vacc-13 [id number] Vital Signs Date Vital Result Comment 12/22/2018 10:15am BP Systolic 104 mmHg BP Diastolic 62 mmHg Heart Rate 56 /min Body Temperature 97.4 F Respiratory Rate 16 /min Height 64 inches 5'4" Weight 169.00 lb BMI (Body Mass Index) 29.0 kg/m2 10/18/2018 1:01pm BP Systolic 108 mmHg BP Diastolic 68 mmHg Heart Rate 78 /min Body Temperature 98.2 F Respiratory Rate 20 /min O2 % BldC Oximetry 98 % Ra Weight 171.00 lb Results Test Date Facility Test Result H/L Range Note Laboratory test 12/22/2018 Darin Valentine([facility]) TSH 1.77 mIU/L 0.50-6.00 1 finding Vitamin D25 37 30-100 Lyme Antibody, Line 12/22/2018 [facility] IgG P93 Ab. Absent 2 Blot, Serum [address] [place] [address] (041)- - IgG P66 Ab. Absent IgG P58 Ab. Absent IgG P45 Ab. Absent IgG P41 Ab. Absent IgG P39 Ab. Absent IgG P30 Ab. Absent IgG P28 Ab. Absent IgG P23 Ab. Absent IgG P18 Ab. Absent Lyme IgG WB Interp. Negative 3 IgM P41 Ab. Absent IgM P39 Ab. Absent IgM P23 Ab. Absent Lyme IgM WB Interp. Negative 4 Comprehensive Metabolic 12/08/2018 Darin Valentine(a) Sodium 138 mEq/L 134-149 Prof Potassium 4.1 mEq/L 3.6-5.5 Chloride 97 mEq/L 94-112 Carbon Dioxide 26 mEq/L 21-32 Glucose 93 mg/dL 70-105 BUN 19 mg/dL 6-26 Creatinine 1.0 mg/dL 0.6-1.4 BUN/Creat Ratio 19.0 CALC 8.0-36.0 Calcium 9.6 mg/dL 8.6-10.2 Total Protein 6.9 g/dL 6.4-8.3 Albumin 4.8 g/dL 3.8-5.5 Globulin 2.1 g/dL 2.0-4.8 A/G Ratio 2.3 CALC 0.6-2.3 Alk. Phosphatase 63 U/L 22-95 Alt (SGPT) 24 U/L 7-35 Ast (Sgot) 20 U/L 5-34 Total Bilirubin 0.8 mg/dL 0.2-1.3 GFR Non- >60 ml/min/1.73m^ >=60 GFR >60 ml/min/1.73m^ >=60 CBC Electronic Fma 12/08/2018 Darin Meme(a) WBC 4.9 x10^3/UL 4.0- 10.0 RBC 4.97 x10^6/UL 3.93-6.00 HGB 15.0 g/dL 12.0-17.0 HCT 44 % 35-50 MCV 88.7 fL 80.0-95.0 MCH 30.2 pg 25.6-32.2 MCHC 34.0 g/dL 32.2-36.0 RDW-CV 13.9 % 11.6-14.4 PLT 241 x10^3/UL 163-400 MPV 9.5 fL 9.4-12.4 Elena# 3.10 x10^3/UL 1.56-6.13 Lymph# 1.07 x10^3/UL Low 1.18-3.74 [place]# 0.52 x10^3/UL 0.24-0.82 Eos # 0.2 x10^3/UL 0.0-0.5 Baso # 0.03 x10^3/UL 0.01-0.08 Elena% 62.9 % 34.0-70.0 Lymph % 21.7 % 20.0-52.0 [place]% 10.5 % 5.0-12.0 Eos% 4.1 % 0.7-7.0 Baso% 0.6 % 0.1-1.2 Lipid Profile 12/08/2018 Darin Meme(a) Cholesterol 141 mg/dL 120- 200 Triglycerides 66 mg/dL 30-200 HDL Cholesterol 56 mg/dL 30-70 LDL (Calculated) 72 CALC 0-129 VLDL Cholesterol 13 mg/dL 0-50 HDL Risk Factor 2.5 CALC 0.0-4.4 Laboratory test 12/08/2018 Darin Valentine([facility]) PSA 8.8 ng/mL High 0.0- 4.0 5 finding Flu A&B (Fma) 10/18/2018 [facility] Influenza A negative (607)- - Influenza B negative 1 please send lyme test to [facility]. 2 SERUM 3 Positive: 5 of the following Borrelia-specific bands: 18,23,28,30,39,41,45,58, 66, and 93. Negative: No bands or banding patterns which do not meet positive criteria. 4 Note: An equivocal or positive EIA result followed by a negative Western Blot result is considered NEGATIVE. An equivocal or positive EIA result followed by a positive Western Blot is considered POSITIVE by the CDC. Positive: 2 of the following bands: 23,39 or 41 Negative: No bands or banding patterns which do not meet positive criteria. Criteria for positivity are those recommended by CDC/ASTPHLD. p23=Osp C, p10=krlosrknz Note: Sera from individuals with the following may cross react in the Lyme Western Blot assays: other spirochetal diseases (periodontal disease, leptospirosis, relapsing fever, yaws, and pinta); connective autoimmune (Rheumatoid Arthritis and Systemic Lupus Erythematosus and also individuals with Antinuclear Antibody); other infections (Sargeant Spotted Fever; Anabel-Harvey Virus, and Cytomegalovirus). 5 RESULTS VERIFIED BY REPEAT ANALYSIS Procedures Date Code Description Status 11/26/2015 [id number] Colonoscopy Completed Medical Devices Description No Information Available Encounters Type Date Location Provider Dx Diagnosis Office Visit 12/22/2018 [facility] Nirali Gonzalez Z00.00 Encntr for general 10:00a Edward Johnson adult medical exam w/o abnormal findings I25.10 Athscl heart disease of knik coronary artery w/o ang pctrs R73.01 Impaired fasting glucose G47.00 Insomnia, unspecified N40.0 Benign prostatic hyperplasia without lower urinry tract symp Z23 Encounter for immunization S30.861A Insect bite (nonvenomous) of abdominal wall, init encntr E55.9 Vitamin D deficiency, unspecified R55 Syncope and collapse Office Visit 10/18/2018 1:00p [facility] Nirali Gonzalez J06.9 Acute upper Edward Johnson respiratory infection, unspecified J01.90 Acute sinusitis, unspecified Assessments Date Code Description Provider 12/22/2018 Z00.00 Encounter for general adult medical Nirali Johnson M.D. examination without abno 12/22/2018 I25.10 Atherosclerotic heart disease of knik Nirali Johnson M.D. coronary artery with 12/22/2018 R73.01 Impaired fasting glucose Nirali Johnson M.D. 12/22/2018 G47.00 Insomnia, unspecified Nirali Johnson M.D. 12/22/2018 N40.0 Benign prostatic hyperplasia without Nirali Johnson M.D. lower urinary tract sym 12/22/2018 Z23 Encounter for immunization Nirali Johnson M.D. 12/22/2018 S30.861A Insect bite (nonvenomous) of abdominal Nirali Johnson M.D. wall, initial encount 12/22/2018 E55.9 Vitamin D deficiency, unspecified Nirali Johnson M.D. 12/22/2018 R55 Syncope and collapse Nirali Johnson M.D. 12/08/2018 Z00.00 Encntr for general adult medical exam w/o Nirali Johnson M.D. abnormal findings 10/18/2018 J06.9 Acute upper respiratory infection, Nirali Johnson M.D. unspecified 10/18/2018 J01.90 Acute sinusitis, unspecified Nirali Johnson M.D. Plan of Treatment 12/22/2018 - Nirali Johnson M.D.Z00.00 Encounter for general adult medical examination without abnoComments:You are in excellent general health. I recommend regular physical exams with attention to good nutrition and exercise, eye exams every other year, and dental exams twice yearly. Goals:2 fresh fruits daily3 helpings of fresh green and multicolored vegetablesEat from the whole color spectrum. 40-60 Oz water dailyMOVE YOUR BODY. Bodies were made to be moved. exercise 30 minutes at least 4-5 times weekly you are going to go to the dentist.I25.10 Atherosclerotic heart disease of knik coronary artery withComments:Stable. Continue present meds. contine with Dr. Donato.01 Impaired fasting glucoseComments:resolved with dietary measures. congratulations.G47.00 Insomnia, unspecifiedComments:doing well with trazodone.N40.0 Benign prostatic hyperplasia without lower urinary tract symZ23 Encounter for immunizationImmunizations/Injections:Tetanus And Diptheria Adult Preservative Free >5NjvI19.861A Insect bite (nonvenomous) of abdominal wall, initial nuqcsioT85.9 Vitamin D deficiency, [id number] Syncope and collapseComments:cut the metoprolol in half. see if that helps. If this doesn't resolve the issue, you need to see Dr. Martinez. Functional Status Description No Information Available Mental Status Description No Information Available Referrals Description No Information Available
== END 2019-02-17 12:11 | disposition home or self-care (01) ==
LOC: UCEAST 10:48
DX: L03.031 Cellulitis of right toe (principal); E78.5 Hyperlipidemia, unspecified; I10 Essential (primary) hypertension
CPT/HCPCS: 99212; G0463